=== PATIENT | female | born 1975 | race Hispanic/Latino ===

== ENCOUNTER 2017-07-25 14:45 | Outpatient (CLI) | payer OTHER ==
--- NOTE | 2017-07-25 15:53 | RAD ---
TWO VIEWS OF THE CHEST 07/25/17 COMPARISON: 12/15/16 HISTORY: Dyspnea. FINDINGS: Two views of the chest shows a normal sized cardiomediastinal silhouette. There is no evidence of con solidation, mass, or pleural effusion. The bones are unremarkable. IMPRESSION: No evidence of acute cardiopulmonary disease. POS: [facility]
== END 2017-07-25 14:46 | disposition home or self-care (01) ==
LOC: RAD 14:45
PROVIDERS: ATTEND Internal Medicine Pulmonary Disease
DX: R06.00 Dyspnea, unspecified (principal)
CPT/HCPCS: 71020

== ENCOUNTER 2017-08-01 11:38 | Outpatient (CLI) | payer OTHER ==
--- NOTE | 2017-08-01 16:07 | CT ---
CT CHEST WITHOUT CONTRAST HIGH RESOLUTION: History Scleroderma. COMPARISON: Chest 2 views 07/25/17. FINDINGS: There are fibrotic changes in the lung bases worse in the upper lobes with traction bronchiectasis. No subpleural sparing. Early honeycombing in the right lower lobe. No pneumothorax. No effusion. Evaluation for pulmonary nodule is limited on high-resolution images of the images acquired every 1 cm. Small pericardial effusion. No adenopathy. Upper abdomen is unremarkable. No displaced rib fracture. 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 Followup in 1 year recommended to evaluate for progression. POS: [facility]
== END 2017-08-01 11:39 | disposition home or self-care (01) ==
LOC: CT 11:38
PROVIDERS: ATTEND Internal Medicine Pulmonary Disease
DX: M34.9 Systemic sclerosis, unspecified (principal)
CPT/HCPCS: 71250; 93306

== ENCOUNTER 2017-08-15 12:39 | Outpatient (CLI) | payer OTHER ==
--- NOTE | 2017-08-22 15:50 | PFT ---
PATIENT HISTORY: HEIGHT: 67 IN WEIGHT:196 LBS SMOKER: NEVER HOW LONG: PACKS PER DAY PRODUCTIVE COUGH: LUNG DISEASE: PHYSICIAN INTERPRETATION FINAL REPORT: MODERATE REDUCTION OF EXPIRATORY FLOWS OF VITAL CAPACITY WITH OUT ANY IMPROVEMENT AFTER BRONCHODILATOR THERAPY. TOTAL LUNG CAPACITY NORMAL, RV NORMAL, RV/TLC HYPEREXPANDED. GAS TRANSFER IS NORMAL. IMPRESSION: RESTRICTIVE PERMEABLE IMPAIRMENT, NORMAL DIFFUSION CAPACITY Care Coordination Manager: [employer]: [employer]
== END 2017-08-15 12:40 | disposition home or self-care (01) ==
LOC: CP 12:39
PROVIDERS: ATTEND Internal Medicine Pulmonary Disease
DX: M34.9 Systemic sclerosis, unspecified (principal)
CPT/HCPCS: 94060; 94727; 94729

== ENCOUNTER 2018-07-31 09:42 | Outpatient (CLI) | payer OTHER ==
--- NOTE | 2018-07-31 13:11 | MRI ---
BRAIN MRI WITH AND WITHOUT CONTRAST: Date: 07-31-18 Comparison: None. History: Scleroderma, increasing slurred speech and word finding difficulties. Evaluate for neoplasti c disease. Technique: Multiplanar, multisequence MR imaging of the brain obtained with and without contrast. FINDINGS: The gradient echo imaging demonstrates no evidence for intracranial hemorrhage and the diffusion weig hted imaging demonstrates no evidence for acute infarction. 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 There is mild mucosal thickening of the maxillary sinus on the left. Ther e is no midline shift, mass effect, or ventricular enlargement. 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 The post contrast imaging demonstrates no abnormal enhancement within the brain parenchyma. There is no mass lesion or mass effect seen. IMPRESSION: No acute findings. Incidental findings as described above. POS: [facility]
== END 2018-07-31 09:43 | disposition home or self-care (01) ==
LOC: MRI 09:42
PROVIDERS: ATTEND Internal Medicine Rheumatology
DX: D49.6 Neoplasm of unspecified behavior of brain (principal)
CPT/HCPCS: 70553

== ENCOUNTER 2018-09-07 19:22 | Inpatient (IN) | payer OTHER ==
[~2018-09-07 19:22] MED LIST: ISOVUE-370 76%-LOCM 1 ML ONE
[2018-09-07 19:43] LABS: #Basophils 0.1 thou/uL (0.0-0.2); #Eosinphils 0.3 thou/uL (0.0-0.7); #Lymphocytes 2.3 thou/uL (1.20-3.40); #Monocytes 1.3 thou/uL (0.11-0.59); #Neutrophils 12.9 thou/uL (1.40-6.50); %Basophils 0.6 % (0.0-1.0); %Eosinophils 1.8 % (0.0-10.0); %Lymphocytes 13.8 % (21.0-51.0); %Monocytes 7.4 % (0.0-10.0); %Neutrophils 76.4 % (42.0-75.0); Hemoglobin 12.9 g/dL (12.0-16.0); Mean Corpuscular HGB CONC 32.9 g/dL (32.0-36.0); Mean Corpuscular Hemoglobin 25.9 pg (27.0-31.0); Mean Corpuscular Volume 78.8 fL (78.0-98.0); Mean Platelet Volume 8.9 fL (7.4-10.4); Platelet Count 440 thou/uL (130-400); RBC Distribution Width 13.5 % (11.5-14.5); Red Blood Cell (RBC) Count 4.98 mill/uL (4.20-5.40); White Blood Cell (WBC) Count 16.9 thou/uL (4.8-10.8)
[2018-09-07 19:51] LABS: Bilirubin Negative (Negative); Blood, Urine Negative (Negative); Clarity CLEAR (Clear); Glucose, Urine (Dipstick) Negative (Negative); Leukocyte Small (Negative); Nitrite Negative (Negative); Protein, Urine (Dipstick) Trace mg/dL (Neg-Trace); Specific Gravity, Urine 1.021 (1.002-1.036); pH, Urine 7.5 (5.0-9.0)
[2018-09-07 19:53] LABS: Bacteria/HPF None Seen HPF (None Seen); Hyaline Casts/LPF 0-3 HYALINE CAST LPF (0-3 Hyaline); Squamous Epithelial 0-3 HPF (0-3)
[2018-09-07 20:05] LABS: ALT (SGPT) 10 U/L (8-55); AST (SGOT) 14 U/L (5-34); Albumin 3.7 g/dL (3.5-5.0); Alkaline Phosphatase 82 U/L (40-150); Anion Gap 9 mmol/L (10-20); BUN (Urea Nitrogen) 9 mg/dL (7.0-18.7); Bilirubin, Total 0.3 mg/dL (0.2-1.2); Calc. Creatinine Clearance 0 mL/min (70-130); Calcium 9.2 mg/dL (7.8-10.44); Carbon Dioxide 28 mmol/L (22-29); Chloride 105 mmol/L (98-107); Estimated GFR-MDRD 83; Globulin 3.7 g/dL (2.4-3.5); Glucose 105 mg/dL (70-105); Potassium 3.3 mmol/L (3.5-5.1); Protein, Total 7.4 g/dL (6.0-8.3); Sodium 139 mmol/L (136-145)
[2018-09-07 20:18] LABS: Lipase 2727 U/L (8-78)
[2018-09-07] MEDS ORDERED: Morphine 4 MG/ML VIAL ONE ×2 (20:40→22:28)
[2018-09-07] MEDS ORDERED: Ondansetron PF 4 MG/2 ML Vial ONE (20:40)
[2018-09-07 21:05] LABS: BHCG - Serum Negative (NEGATIVE); Pregs Control Background? CLEAR/WHITE (CLR/WHITE); Pregs Control Bar Appear? YES (CONTROL BAR)
[2018-09-07 21:10] LABS: Pregnancy Test - Urine (BHCG) Negative (Negative); Pregu Control Background? CLEAR/WHITE (CLR/WHITE); Pregu Control Bar Appear? YES (CONTROL BAR); Specific Gravity 1.021 (1.002-1.036)
--- NOTE | 2018-09-07 22:15 | CT ---
CT ABDOMEN AND PELVIS WITH IV CONTRAST: 09/07/18 HISTORY: Abdomen pain. FINDINGS: Interstitial lung disease is apparent at the lung bases, as detailed on prior CT chest exams. Small c ysts of the right kidney. Subtle stranding is present within the upper abdominal fat surrounding the body and tail of the pancreas. The pancreatic parenchyma is unremarkable. At the right adnexa, a lobular cyst measures up to 6.5 cm. Left ovarian cyst measures up to 3.5 cm. U rinary bladder is unremarkable. IMPRESSION: 1. Mild pancreatitis without evidence of complication. 2. Bilateral ovarian cysts. 3. Interstitial lung disease. POS: [facility]
[2018-09-07] MEDS ORDERED: Morphine 4 MG/ML VIAL SLOW IVP PRN (23:41)
[2018-09-07] MEDS ORDERED: Pantoprazole 40 MG VIAL IVP SCH (23:45)
[2018-09-07] MEDS ORDERED: predniSONE 20 MG TAB PO SCH (23:45)
[2018-09-07] MEDS ORDERED: tiZANidine HCl 4 MG TAB PO SCH (23:45)
[2018-09-07] MEDS ORDERED: Ondansetron ODT 4 MG TAB PO PRN (23:48)
[2018-09-07] MEDS ORDERED: Acetaminophen 325 MG TAB PO PRN (23:48)
[2018-09-07] MEDS ORDERED: Calcium Carbonate 500 MG ChewTAB PO PRN (23:48)
[2018-09-07] MEDS ORDERED: Ondansetron PF 4 MG/2 ML Vial IVP PRN (23:48)
[2018-09-08] MEDS ORDERED: Pantoprazole 40 MG VIAL ONE (00:20)
[2018-09-08] MEDS ORDERED: predniSONE 20 MG TAB ONE (00:20)
[2018-09-08] MEDS: D5 1/2 NS w/20 mEq KCL 1,000 ML IV SCH ×4 (01:07→21:36)
[2018-09-08] MEDS ORDERED: Morphine 4 MG/ML VIAL ONE (02:30)
[2018-09-08 03:58] LABS: #Eosinphils 0.2 thou/uL (0.0-0.7); #Lymphocytes 1.3 thou/uL (1.20-3.40); #Monocytes 0.9 thou/uL (0.11-0.59); #Neutrophils 15.4 thou/uL (1.40-6.50); %Basophils 0.2 % (0.0-1.0); %Eosinophils 1.1 % (0.0-10.0); %Lymphocytes 7.2 % (21.0-51.0); %Monocytes 4.9 % (0.0-10.0); %Neutrophils 86.6 % (42.0-75.0); Hemoglobin 11.6 g/dL (12.0-16.0); Mean Corpuscular HGB CONC 32.7 g/dL (32.0-36.0); Mean Corpuscular Hemoglobin 25.9 pg (27.0-31.0); Mean Corpuscular Volume 79.2 fL (78.0-98.0); Mean Platelet Volume 8.8 fL (7.4-10.4); Platelet Count 369 thou/uL (130-400); RBC Distribution Width 13.4 % (11.5-14.5); Red Blood Cell (RBC) Count 4.47 mill/uL (4.20-5.40); White Blood Cell (WBC) Count 17.8 thou/uL (4.8-10.8)
[2018-09-08 04:20] LABS: ALT (SGPT) 7 U/L (8-55); AST (SGOT) 11 U/L (5-34); Albumin 3.4 g/dL (3.5-5.0); Alkaline Phosphatase 71 U/L (40-150); Anion Gap 13 mmol/L (10-20); BUN (Urea Nitrogen) 8 mg/dL (7.0-18.7); Bilirubin, Total 0.3 mg/dL (0.2-1.2); Calc. Creatinine Clearance 0 mL/min (70-130); Calcium 8.1 mg/dL (7.8-10.44); Carbon Dioxide 22 mmol/L (22-29); Chloride 104 mmol/L (98-107); Estimated GFR-MDRD Greater than 90; Globulin 3.1 g/dL (2.4-3.5); Glucose 115 mg/dL (70-105); Lipase 745 U/L (8-78); Magnesium 1.6 mg/dL (1.6-2.6); Potassium 3.4 mmol/L (3.5-5.1); Protein, Total 6.5 g/dL (6.0-8.3); Sodium 136 mmol/L (136-145)
--- NOTE | 2018-09-08 06:13 | HP ---
PRIMARY CARE PHYSICIAN: Dr. Moore. The patient was seen and examined on 07 September 2018. CHIEF COMPLAINT: Abdominal discomfort. HISTORY OF PRESENT ILLNESS: The patient is a 43-year-old female with rheumatoid arthritis and GERD, presented to the emergency room with abdominal discomfort that started earlier today. The abdominal discomfort was mainly localized in the upper abdomen. It was moderate in intensity, more or less constant. She denies any fever, however, had chills. She also had two episodes of diarrhea earlier today. No nausea or vomiting reported. She denies any alcohol use. She denies any belching, burping, or heartburn. Triglycerides last year was 200. She denies any other [id number] medications. She is on chronic prednisone for rheumatoid arthritis per Dr. Terry. In the emergency room, her workup was consistent with acute pancreatitis. Her initial vital signs showed temperature 98.3, respiration 20, pulse rate of 101 with a blood pressure 131/85 with O2 saturation 99% on room air. She received IV fluids with Zofran and morphine in the emergency room. PAST MEDICAL HISTORY: 1. Rheumatoid arthritis. 2. Mild intermittent asthma. 3. GERD. 4. Raynaud phenomenon. 5. Vitamin D deficiency. 6. Fibromyalgia. 7. Rosacea. 8. Interstitial lung disease. PAST SURGICAL HISTORY: 1. section. 2. Hernia repair. 3. Tonsillectomy. 4. D and C. ALLERGIES: NO KNOWN DRUG ALLERGIES. CURRENT HOME MEDICATIONS: 1. Prednisone 5 mg daily. 2. Colchicine 0.6 mg daily. 3. Cymbalta 60 mg daily. 4. Plaquenil 200 mg daily. 5. Procardia XL 60 mg daily. 6. Nexium daily. 7. Zanaflex 4 mg at bedtime. 8. Aspirin 81 mg daily. SOCIAL HISTORY: The patient currently lives at home with her family. Denies any alcohol, tobacco, or drug use. FAMILY HISTORY: Mother with rheumatoid arthritis, lupus, Raynaud, and stomach cancer. One sister of ALS. Another sister has rheumatoid arthritis. REVIEW OF SYSTEMS: All other review of systems were reviewed and were found negative. PHYSICAL EXAMINATION: VITAL SIGNS: As discussed above. GENERAL: A 43-year-old female, in mild distress due to abdominal discomfort. HEENT: Head is atraumatic, normocephalic. Sclerae anicteric. Moist mucous membranes. No oral lesions. NECK: Supple. No JVD appreciated. No carotid bruit. LUNGS: Clear to auscultation bilaterally. No wheezing, rales, or rhonchi. HEART: S1 and S2 present. Regular rate and rhythm. No murmurs, rubs, or gallops appreciated. ABDOMEN: Soft. There is epigastric tenderness without any significant rebound or guarding. No costovertebral angle tenderness. Bowel sounds are present. EXTREMITIES: No edema or calf tenderness. NEUROLOGIC: Grossly nonfocal. Moves all 4 extremities. PSYCHIATRY: Alert, awake, and oriented x3. SKIN: Warm and dry. LYMPH NODES: No palpable lymph nodes in the neck. PERIPHERAL VASCULAR: Radial pulses palpable bilaterally. MUSCULOSKELETAL: No joint swelling or tenderness. LABORATORY FINDINGS: WBC 16.9 with hemoglobin 12.9, hematocrit 39.2, platelet count 440. Chemistry showed sodium 139, potassium 3.3, chloride 105, bicarb 28, BUN 9 , creatinine 0.76. Lipase is 2700, testing was negative. Urinalysis was negative for wbc and bacteria. CT scan of the abdomen showed pancreatitis. It also showed bilateral ovarian cyst with interstitial lung disease. IMPRESSION: 1. Acute pancreatitis of unclear etiology. 2. Rheumatoid arthritis on chronic steroids and Plaquenil. 3. Raynaud phenomenon on Procardia XL. 4. Gastroesophageal reflux disease. 5. Fibromyalgia. 6. Mild intermittent asthma. 7. Interstitial lung disease. 8. Bilateral ovarian cyst. 9. Hypokalemia. 10. Dehydration. 11. Chronic leukocytosis. PLAN: The patient will be monitored on the medical floor. We will replace potassium. IV narcotics for pain control. IV fluids. IV Protonix. Resume prednisone, Cymbalta, Plaquenil, Procardia XL, and colchicine. Consult Gastroenterology Service. Right upper quadrant ultrasound to rule out cholelithiasis. Recheck labs in a.m. N.p.o. except for ice chips. The patient will require 2 to 3 days for stabilization. Job ID: [id number] [facility]
[2018-09-08] MEDS ORDERED: D5 1/2 NS w/20 mEq KCL 1,000 ML ONE (08:04)
--- NOTE | 2018-09-08 08:17 | ULT ---
ULTRASOUND ABDOMEN LIMITED: (RIGHT UPPER QUADRANT) DATE: 09/08/2018. TIME: 7:11 a.m. HISTORY: A 43-year-old female with acute pancreatitis. FINDINGS: The gallbladder has normal wall thickness and has no evidence of gallstones or sludge. The hepatic e chogenicity is normal. The right kidney has normal echogenicity and has no hydronephrosis. The panc reas is visualized, although ultrasound is relatively insensitive for pancreatic pathology compared t o CT and MRI. There is no biliary dilation. The common duct caliber is 4 mm. IMPRESSION: Normal. ralph [] POS: [facility]
[2018-09-08] MEDS ORDERED: Aspirin Chewable 81 MG TAB ONE (08:51)
[2018-09-08] MEDS ORDERED: NIFEdipine XL 30 MG TAB ONE (08:53)
[2018-09-08] MEDS ORDERED: Pantoprazole 40 MG VIAL IVP SCH (09:00)
[2018-09-08] MEDS: Aspirin 81 mg Enteric Coated Tablet PO SCH (11:33)
[2018-09-08] MEDS: Hydroxychloroquine Sulfate 200 MG TAB PO SCH ×2 (11:34→21:36)
[2018-09-08] MEDS: NIFEdipine XL 30 MG TAB PO SCH ×2 (11:34→21:36)
[2018-09-08] MEDS: DULoxetine 60 MG CAP PO SCH (11:35)
[2018-09-08] MEDS: Colchicine 0.6 MG TAB PO SCH (11:36)
[2018-09-08] MEDS: predniSONE 5 MG TAB PO SCH (11:36)
[2018-09-08] MEDS ORDERED: HYDROcodone/Acetaminophen 5/325 mg Tablet ONE (12:39)
[2018-09-08] MEDS: HYDROcodone/Acetaminophen 5/325 mg Tablet PO PRN ×2 (12:40→18:01)
--- NOTE | 2018-09-08 13:37 | CON ---
DATE OF CONSULTATION: 09/08/2018 GI INPATIENT CONSULTATION NOTE REQUESTING PHYSICIAN: Phillip Verdugo MD. REASON FOR CONSULTATION: Acute pancreatitis. HISTORY OF PRESENT ILLNESS: Abril Tavares is a very pleasant 43-year-old woman who was admitted to the hospital last night with her first episode of acute pancreatitis. She has no prior history of pancreatitis, no family history of pancreatitis. She does have some autoimmune issues with rheumatoid arthritis, Raynaud phenomenon, rosacea, and interstitial lung disease. She has no chronic gastrointestinal symptoms. Yesterday, fairly acutely, she had the onset of epigastric pain and also initially some diarrhea. The diarrhea quickly resolved, but the pain escalated to 10/10 and prompted her presentation. She was having some chills, but no documented fever. No nausea or vomiting with this. She was found to have lipase elevation and a CT scan demonstrated fat stranding around the body and tail of the pancreas. Gallbladder and bile duct imaging has been normal both by CT and ultrasound and LFTs have been normal. She has been hemodynamically stable, receiving IV fluids and pain control with modest efficacy. She had significant worsening of pain just with sips of water with her medications earlier today. REVIEW OF SYSTEMS: Full review of systems including constitutional, head, eyes, ears, nose, throat, GI, , cardiovascular, respiratory, musculoskeletal, neurologic systems is negative except as noted in the HPI. PAST MEDICAL HISTORY: Rheumatoid arthritis, mild intermittent asthma, interstitial lung disease, GERD, Raynaud phenomenon, vitamin D deficiency, fibromyalgia, rosacea, , hernia repair, tonsillectomy, D and C. ALLERGIES: NO KNOWN DRUG ALLERGIES. HOME MEDICATIONS: 1. Prednisone 5 mg daily. 2. Colchicine 0.6 mg daily. 3. Cymbalta 60 mg daily. 4. Plaquenil 200 mg daily. 5. Procardia XL 60 mg daily. 6. Nexium daily. 7. Zanaflex 4 mg at bedtime. 8. Aspirin 81 mg daily. Note that none of these medications are particularly new. The colchicine was started about three weeks ago. SOCIAL HISTORY: No alcohol, tobacco, or drug use. FAMILY HISTORY: Negative for pancreatitis. One sister of ALS. PHYSICAL EXAMINATION: VITAL SIGNS: Temperature 97.6, pulse 67, blood pressure 133/74, 96% oxygen saturation on room air. GENERAL: A 43-year-old woman sitting up in bed, in mild distress from abdominal discomfort. MENTAL: Alert and fully oriented. Pleasant, conversational. Gives a detailed coherent history. SKIN: No jaundice. No rashes were palpable. EYES: No scleral icterus. Extraocular movements intact. ENT: Mucous membranes moist. No oral lesions. LYMPH: No submandibular or supraclavicular lymphadenopathy. THYROID: Nontender to palpation. HEART: Regular rate and rhythm. LUNGS: Clear to auscultation bilaterally. ABDOMEN: Bowel sounds are present though hypoactive. The abdomen is soft, very tender to palpation in the upper abdomen but no guarding or rebound tenderness. EXTREMITIES: No peripheral edema. VESSELS: Radial pulses 2+ bilaterally. NEUROLOGIC: Cranial nerves 2 through 12 intact bilaterally. No focal deficits. LABORATORY STUDIES: WBC 17.8, evidently her baseline, WBC is modestly elevated. Hemoglobin 11.6, hematocrit 35.4, MCV 79.2, platelets 369. Sodium 136, potassium 3.4, BUN 8, creatinine 0.69, glucose 115. LFTs all normal with total bilirubin 0.3, alkaline phosphatase 71, AST 11, ALT 7, albumin 3.4, amylase elevated to 261, lipase was initially 2727, now down to 745. Serum test is negative. Urinalysis shows 4-6 wbc's. IMAGING STUDIES: Abdominal ultrasound was normal showing normal-appearing gallbladder and common bile duct, measuring only 4 mm. There is no evidence of gallstones or sludge. CT abdomen and pelvis demonstrates some subtle stranding around the body and tail of the pancreas and bilateral ovarian cysts, otherwise unremarkable. ASSESSMENT AND PLAN: 1. Acute pancreatitis, unclear etiology, first episode. 2. Upper abdominal pain, secondary to pancreatitis. This is the patient's first episode of pancreatitis. The etiology is unclear. Biliary etiology seems unlikely with normal ultrasound and normal LFTs. She does not drink alcohol. None of her medications are particularly new. For now, we are going to have to call this idiopathic. Regarding this acute episode itself, all of her laboratory clinical parameters seem favorable, she is being adequately resuscitated. Continue with supportive care with IV fluids, n.p.o. status for now, and analgesia. Hopefully, we would expect symptom resolution over the course of the next 2 to 3 days. No further recommendations from a GI perspective at this time. GI can follow along. Thank you for the consultation. Please call back with any questions or concerns. Mack ID: [id number]
[2018-09-08 15:01] VITALS: BMI 32.3
[2018-09-08] MEDS: tiZANidine HCl 4 MG TAB PO SCH (21:36)
--- NOTE | 2018-09-08 22:09 | PDOC.PN ---
- Subjective Encounter Start Date: 09/08/18 Encounter Start Time: 09:00 Patient seen and examined for Acute Pancreatitis. Abd pain improving. No new complaints. No overnight events - Objective Resuscitation Status - Order Detail: 09/07/18 23:48 Resuscitation Status Routine Resuscitation Status: FULL: Full Resuscitation MAR Reviewed: Yes Vital Signs & Weight: Vital Signs (12 hours) Temp Pulse Resp BP BP Pulse Ox 09/08/18 21:36 97 122/76 09/08/18 16:00 98 F 82 16 122/75 96 09/08/18 13:20 96 09/08/18 13:16 97.9 F 85 16 134/82 96 09/08/18 11:34 67 133/74 Weight Weight 199 lb 15.348 oz Result Diagrams: 09/08/18 03:45 09/08/18 03:45 Additional Labs: Laboratory Tests 09/07/18 09/08/18 19:34 03:45 Lipase 2727 H 745 H Phys Exam - Physical Examination Constitutional: NAD Respiratory: no wheezing, no rhonchi Cardiovascular: RRR, no rub Gastrointestinal: soft, positive bowel sounds Epig tend +, no rebound/guarding Dx/Plan - Plan DVT proph w/SCDs IMPRESSION: 1. Acute pancreatitis of unclear etiology. 2. Rheumatoid arthritis on chronic steroids and Plaquenil. 3. Raynaud phenomenon on Procardia XL. 4. Gastroesophageal reflux disease. 5. Fibromyalgia. 6. Mild intermittent asthma. 7. Interstitial lung disease. 8. Bilateral ovarian cyst. 9. Hypokalemia. 10. Dehydration. 11. Chronic leukocytosis. PLAN: Cont NPO with IVF Await GI input Cont current meds as below Pain control Cont PPI AM labs Review of Systems - Review of Systems Respiratory: negative: Cough, Dry, Shortness of Breath, Hemoptysis, SOB with Excertion, Pleuritic Pain, Sputum, Wheezing Cardiovascular: negative: chest pain, palpitations, orthopnea, paroxysmal nocturnal dyspnea, edema, light headedness, other - Medications/Allergies Allergies/Adverse Reactions: Allergies Allergy/AdvReac Type Severity Reaction Status Date / Time No Known Allergies Allergy Verified 09/08/18 14:25 Medications: Current Medications Acetaminophen (Tylenol) 650 mg PO Q4H PRN PRN Reason: Headache/Fever/Mild Pain (1-3) Hydrocodone Bitart/Acetaminophen ([place] 5/325) 1 tab PO Q4H PRN PRN Reason: Moderate Pain (4-6) Last Admin: 09/08/18 18:01 Dose: 1 tab Aspirin (Ecotrin) 81 mg PO DAILY [facility] Last Admin: 09/08/18 11:33 Dose: 81 mg Calcium Carbonate (Tums) 1,000 mg PO Q4H PRN PRN Reason: Heartburn or Indigestion Colchicine (Colcrys) 0.6 mg PO DAILY [facility] Last Admin: 09/08/18 11:36 Dose: 0.6 mg Duloxetine HCl (Cymbalta) 60 mg PO DAILY [facility] Last Admin: 09/08/18 11:35 Dose: 60 mg Hydroxychloroquine Sulfate (Plaquenil) 200 mg PO BID [facility] Last Admin: 09/08/18 21:36 Dose: 200 mg Potassium Chloride/Dextrose/Sod Cl (D5 1/2 Ns W/20 Meq Kcl) 1,000 mls @ 150 mls /hr IV .Q6H40M [facility] Last Admin: 09/08/18 21:36 Dose: 1,000 mls Morphine Sulfate (Morphine) 2 mg SLOW IVP Q4H PRN PRN Reason: Pain Stop: 09/10/18 23:42 Last Admin: 09/08/18 14:12 Dose: 2 mg Nifedipine (Procardia Xl) 30 mg PO BID [facility] Last Admin: 09/08/18 21:36 Dose: 30 mg Ondansetron HCl (Zofran Odt) 4 mg PO Q6H PRN PRN Reason: Nausea/Vomiting Ondansetron HCl (Zofran) 4 mg IVP Q6H PRN PRN Reason: Nausea/Vomiting Last Admin: 09/08/18 14:52 Dose: 4 mg Pantoprazole Sodium (Protonix) 40 mg PO DAILY [facility] Last Admin: 09/08/18 11:34 Dose: 40 mg Prednisone (Prednisone) 5 mg PO QAM [facility] Last Admin: 09/08/18 11:36 Dose: 5 mg Sodium Chloride (Flush - Normal Saline) 10 ml IVF PRN PRN PRN Reason: Saline Flush Tizanidine HCl (Zanaflex) 4 mg PO HS [facility] Last Admin: 09/08/18 21:36 Dose: 4 mg
[2018-09-09] MEDS: D5 1/2 NS w/20 mEq KCL 1,000 ML IV SCH ×3 (04:44→16:52)
[2018-09-09] MEDS: Hydroxychloroquine Sulfate 200 MG TAB PO SCH ×2 (08:31→21:32)
[2018-09-09] MEDS: DULoxetine 60 MG CAP PO SCH (08:31)
[2018-09-09] MEDS: NIFEdipine XL 30 MG TAB PO SCH ×2 (08:31→21:32)
[2018-09-09] MEDS: predniSONE 5 MG TAB PO SCH (08:31)
[2018-09-09] MEDS: Colchicine 0.6 MG TAB PO SCH (08:31)
[2018-09-09] MEDS: Aspirin 81 mg Enteric Coated Tablet PO SCH (08:32)
--- NOTE | 2018-09-09 09:38 | PRG ---
DATE OF SERVICE: 09/09/2018 GI INPATIENT DAILY PROGRESS NOTE SUBJECTIVE: Ms. Tavares is feeling a lot better. She did not require any pain medication last night or this morning. She has no abdominal pain at this moment. She has no more nausea or vomiting. She has been taking sips of water and doing fine with that. She has remained hemodynamically stable. Lab results are not back yet from this morning. PHYSICAL EXAMINATION: VITAL SIGNS: Temperature 97.5, pulse 101, blood pressure 106/65, 96% oxygen saturation on room air. GENERAL: No acute distress. HEART: Regular rate and rhythm. LUNGS: Clear to auscultation bilaterally. ABDOMEN: Bowel sounds present. Soft. Minimal tenderness to palpation. No guarding or rebound tenderness. EXTREMITIES: No peripheral edema. LABORATORY STUDIES: Labs are not yet back from this morning. ASSESSMENT AND PLAN: 1. Acute pancreatitis, clinically improving. 2. Upper abdominal pain, resolved at this time. Clinically, the patient's acute pancreatitis has significantly improved. We can advance her to a clear liquid diet this morning. I advised that if this goes well over breakfast and lunch, then her diet could be further advanced as tolerated this afternoon. Hopefully, she will be able to advance her diet completely by tomorrow. If so, potential discharge tomorrow. Please call anytime with questions or concerns. Job ID: [id number]
[2018-09-09 11:57] LABS: #Basophils 0.1 thou/uL (0.0-0.2); #Eosinphils 0.2 thou/uL (0.0-0.7); #Lymphocytes 1.5 thou/uL (1.20-3.40); #Monocytes 0.9 thou/uL (0.11-0.59); #Neutrophils 12.2 thou/uL (1.40-6.50); %Basophils 0.3 % (0.0-1.0); %Eosinophils 1.3 % (0.0-10.0); %Lymphocytes 10.1 % (21.0-51.0); %Monocytes 5.9 % (0.0-10.0); %Neutrophils 82.3 % (42.0-75.0); Hemoglobin 12.7 g/dL (12.0-16.0); Mean Corpuscular HGB CONC 32.6 g/dL (32.0-36.0); Mean Corpuscular Volume 79.6 fL (78.0-98.0); Mean Platelet Volume 9.1 fL (7.4-10.4); Platelet Count 399 thou/uL (130-400); RBC Distribution Width 13.6 % (11.5-14.5); Red Blood Cell (RBC) Count 4.89 mill/uL (4.20-5.40); White Blood Cell (WBC) Count 14.8 thou/uL (4.8-10.8)
[2018-09-09 12:00] LABS: ALT (SGPT) Less than 7 U/L (8-55); AST (SGOT) 13 U/L (5-34); Albumin 3.6 g/dL (3.5-5.0); Alkaline Phosphatase 73 U/L (40-150); Anion Gap 11 mmol/L (10-20); BUN (Urea Nitrogen) Less than 4 mg/dL (7.0-18.7); Bilirubin, Total 0.4 mg/dL (0.2-1.2); Calc. Creatinine Clearance 152 mL/min (70-130); Calcium 9.3 mg/dL (7.8-10.44); Carbon Dioxide 23 mmol/L (22-29); Chloride 107 mmol/L (98-107); Estimated GFR-MDRD Greater than 90; Globulin 3.6 g/dL (2.4-3.5); Glucose 92 mg/dL (70-105); Lipase 160 U/L (8-78); Magnesium 1.8 mg/dL (1.6-2.6); Phosphorus 2.8 mg/dL (2.3-4.7); Potassium 3.5 mmol/L (3.5-5.1); Protein, Total 7.2 g/dL (6.0-8.3); Sodium 137 mmol/L (136-145)
[2018-09-09] MEDS: tiZANidine HCl 4 MG TAB PO SCH (21:33)
--- NOTE | 2018-09-09 21:46 | PDOC.PN ---
- Subjective Encounter Start Date: 09/09/18 Encounter Start Time: 11:00 Patient seen and examined for Acute Pancreatitis. No new complaints. No overnight events - Objective Resuscitation Status - Order Detail: 09/07/18 23:48 Resuscitation Status Routine Resuscitation Status: FULL: Full Resuscitation MAR Reviewed: Yes Vital Signs & Weight: Vital Signs (12 hours) Temp Pulse Resp BP BP Pulse Ox 09/09/18 21:32 99 130/80 09/09/18 17:08 97.8 F 96 18 123/73 97 09/09/18 12:00 97.8 F 101 H 18 128/77 96 Weight Weight 199 lb 15.348 oz Result Diagrams: 09/09/18 11:11 09/09/18 11:11 Phys Exam - Physical Examination Constitutional: NAD Respiratory: no wheezing, no rhonchi Cardiovascular: RRR, no rub Gastrointestinal: soft, non-tender, positive bowel sounds Musculoskeletal: no edema Neurological: moves all 4 limbs Dx/Plan - Plan DVT proph w/SCDs IMPRESSION: 1. Acute pancreatitis of unclear etiology. 2. Rheumatoid arthritis on chronic steroids and Plaquenil. 3. Raynaud phenomenon on Procardia XL. 4. Gastroesophageal reflux disease. 5. Fibromyalgia. 6. Mild intermittent asthma. 7. Interstitial lung disease. 8. Bilateral ovarian cyst. 9. Hypokalemia. 10. Dehydration. 11. Chronic leukocytosis. PLAN: Clear liqd diet Cont current meds as below Pain control Cont PPI Advance to full liqd diet in PM Review of Systems - Review of Systems Respiratory: negative: Cough, Dry, Shortness of Breath, Hemoptysis, SOB with Excertion, Pleuritic Pain, Sputum, Wheezing Cardiovascular: negative: chest pain, palpitations, orthopnea, paroxysmal nocturnal dyspnea, edema, light headedness, other Gastrointestinal: negative: Nausea, Vomiting, Abdominal Pain, Diarrhea, Constipation, Melena, Hematochezia, Other - Medications/Allergies Allergies/Adverse Reactions: Allergies Allergy/AdvReac Type Severity Reaction Status Date / Time No Known Allergies Allergy Verified 09/08/18 14:25 Medications: Current Medications Acetaminophen (Tylenol) 650 mg PO Q4H PRN PRN Reason: Headache/Fever/Mild Pain (1-3) Hydrocodone Bitart/Acetaminophen ([place] 5/325) 1 tab PO Q4H PRN PRN Reason: Moderate Pain (4-6) Last Admin: 09/08/18 18:01 Dose: 1 tab Aspirin (Ecotrin) 81 mg PO DAILY [facility] Last Admin: 09/09/18 08:32 Dose: 81 mg Calcium Carbonate (Tums) 1,000 mg PO Q4H PRN PRN Reason: Heartburn or Indigestion Colchicine (Colcrys) 0.6 mg PO DAILY [facility] Last Admin: 09/09/18 08:31 Dose: 0.6 mg Duloxetine HCl (Cymbalta) 60 mg PO DAILY [facility] Last Admin: 09/09/18 08:31 Dose: 60 mg Hydroxychloroquine Sulfate (Plaquenil) 200 mg PO BID [facility] Last Admin: 09/09/18 21:32 Dose: 200 mg Potassium Chloride/Dextrose/Sod Cl (D5 1/2 Ns W/20 Meq Kcl) 1,000 mls @ 150 mls /hr IV .Q6H40M [facility] Last Admin: 09/09/18 16:52 Dose: 1,000 mls Morphine Sulfate (Morphine) 2 mg SLOW IVP Q4H PRN PRN Reason: Pain Stop: 09/10/18 23:42 Last Admin: 09/08/18 14:12 Dose: 2 mg Nifedipine (Procardia Xl) 30 mg PO BID [facility] Last Admin: 09/09/18 21:32 Dose: 30 mg Ondansetron HCl (Zofran Odt) 4 mg PO Q6H PRN PRN Reason: Nausea/Vomiting Ondansetron HCl (Zofran) 4 mg IVP Q6H PRN PRN Reason: Nausea/Vomiting Last Admin: 09/08/18 14:52 Dose: 4 mg Pantoprazole Sodium (Protonix) 40 mg PO DAILY [facility] Last Admin: 09/09/18 08:31 Dose: 40 mg Prednisone (Prednisone) 5 mg PO QAM [facility] Last Admin: 09/09/18 08:31 Dose: 5 mg Sodium Chloride (Flush - Normal Saline) 10 ml IVF PRN PRN PRN Reason: Saline Flush Tizanidine HCl (Zanaflex) 4 mg PO HS [facility] Last Admin: 09/09/18 21:33 Dose: 4 mg
[2018-09-10] MEDS: D5 1/2 NS w/20 mEq KCL 1,000 ML IV SCH ×2 (01:21→09:08)
[2018-09-10 07:43] VITALS: TEMP 98.2
[2018-09-10] MEDS: predniSONE 5 MG TAB PO SCH (09:09)
[2018-09-10] MEDS: Colchicine 0.6 MG TAB PO SCH (09:10)
[2018-09-10] MEDS: Hydroxychloroquine Sulfate 200 MG TAB PO SCH (09:10)
[2018-09-10] MEDS: Aspirin 81 mg Enteric Coated Tablet PO SCH (09:10)
[2018-09-10] MEDS: DULoxetine 60 MG CAP PO SCH (09:10)
[2018-09-10] MEDS: NIFEdipine XL 30 MG TAB PO SCH (09:11)
[2018-09-10 09:12] VITALS: BP 125/78
[2018-09-10] MEDS ORDERED: D5 1/2 NS w/20 mEq KCL 1,000 ML IV SCH (09:32)
--- NOTE | 2018-09-10 11:15 | PRG ---
DATE OF SERVICE: 09/10/2018 SUBJECTIVE: Ms. Tavares is feeling really well. Her abdominal pain and nausea have resolved. She is tolerating a full liquid diet, ready to try something more solid. She has remained hemodynamically stable. OBJECTIVE: VITAL SIGNS: Temperature 98.2, pulse 81, blood pressure 125/78, 97% oxygen saturation on room air. GENERAL: No acute distress. HEART: Regular rate and rhythm. LUNGS: Clear to auscultation bilaterally. ABDOMEN: Soft. Bowel sounds are present. Nontender to palpation. EXTREMITIES: No peripheral edema. LABORATORY STUDIES: Labs from yesterday morning demonstrated lipase improvement to 160. LFTs all still normal. BUN less than 4, creatinine 0.69. WBC 14.8, hemoglobin 12.7. ASSESSMENT AND PLAN: 1. Acute pancreatitis, unknown etiology, clinically improved. 2. Upper abdominal pain, resolved at this time. From a clinical standpoint, her pancreatitis seems to have resolved. Would give her a regular diet for lunch today. If she does well with this, then I would recommend discharge from the hospital, at least from a GI perspective. We will plan to see her back in clinic in the next 2 to 3 weeks for further discussion as well as discussion of other chronic issues including her gastroesophageal reflux. Job ID: [id number]
--- NOTE | 2018-09-11 10:46 | DIS ---
DATE OF ADMISSION: 09/07/2018 DATE OF DISCHARGE: 09/10/2018 DISCHARGE DISPOSITION: Home. FOLLOWUP: 1. Follow up with primary care physician, Dr. Moore in 1 week. 2. Follow up with Dr. Sesar King in 2 weeks. ALLERGIES: NO KNOWN DRUG ALLERGIES. THE PATIENT WAS SEEN ON THE DAY OF DISCHARGE. DENIES ANY NEW COMPLAINTS. NO CHEST PAIN, SHORTNESS OF BREATH, PALPITATIONS, NAUSEA, VOMITING, OR DIARRHEA REPORTED. BRIEF HOSPITAL COURSE: The patient is a 43-year-old female, who presented to the hospital with abdominal discomfort. Please refer to the history and physical for further details. The patient was admitted to the hospital with a diagnosis of acute pancreatitis of unclear etiology. The lipase on admission was 2727. She was kept n.p.o. CT scan of the brain was consistent with pancreatitis. It also showed bilateral ovarian cyst with interstitial lung disease. Right upper quadrant ultrasound was negative for acute findings. Her symptoms improved with conservative measures. Her lipase yesterday was 160. She tolerated clear liquid diet. This was advanced to a regular diet. She appears stable for discharge. FINAL DIAGNOSES: 1. Acute pancreatitis of unclear etiology. 2. Rheumatoid arthritis, on chronic steroids and Plaquenil. 3. Raynaud phenomena, on Procardia XL. 4. Gastroesophageal reflux disease. 5. Fibromyalgia. 6. Mild intermittent asthma. 7. Interstitial lung disease. 8. Bilateral ovarian cysts with interstitial lung disease on the CT. 9. Hypokalemia. 10. Dehydration. 11. Chronic leukocytosis. DISCHARGE MEDICATIONS: Same as admission medication. Job ID: [id number]
== END 2018-09-10 16:00 | disposition home or self-care (01) | DRG 439 ==
LOC: ERS 19:22 → ERHOLD 23:07 → T4-A 09-08 13:18
PROVIDERS: ADMIT Internal Medicine; ATTEND Internal Medicine
DX: K85.90 Acute pancreatitis without necrosis or infection, unspecified (principal); J84.9 Interstitial pulmonary disease, unspecified; M06.9 Rheumatoid arthritis, unspecified; K21.9 Gastro-esophageal reflux disease without esophagitis; Z79.52 Long term (current) use of systemic steroids; J45.20 Mild intermittent asthma, uncomplicated; I73.00 Raynaud's syndrome without gangrene; E55.9 Vitamin D deficiency, unspecified; M79.7 Fibromyalgia; L71.9 Rosacea, unspecified; Z79.899 Other long term (current) drug therapy; Z79.82 Long term (current) use of aspirin; N83.202 Unspecified ovarian cyst, left side; N83.201 Unspecified ovarian cyst, right side; E87.6 Hypokalemia; E86.0 Dehydration; D72.828 Other elevated white blood cell count
CPT/HCPCS: 36415; 74177; 76705; 80053; 81003; 81015; 81025; 82150; 83690; 83735; 84100; 84703; 85025; 96361; 96374; 96375; 96376; C9113; J2270; J2405; J7506; J7512; Q9966

== ENCOUNTER 2018-10-07 17:34 | Outpatient (CLI) | payer OTHER | END 2018-10-07 17:35 | disposition home or self-care (01) | LOC: BICMAMMO 17:34 | PROVIDERS: ATTEND Family Medicine | DX: Z12.31 Encounter for screening mammogram for malignant neoplasm of breast (principal); R92.1 Mammographic calcification found on diagnostic imaging of breast | CPT/HCPCS: 77063; 77067 ==

== ENCOUNTER 2018-10-30 08:05 | Outpatient (CLI) | payer OTHER ==
--- NOTE | 2018-10-30 09:06 | RAD ---
PA AND LATERAL CHEST: HISTORY: Systemic sclerosis. COMPARISON: 07/25/2017 FINDINGS: The heart size is normal. There is interval worsening of chronic interstitial changes since the last exam. Small effusions may be present, posteriorly. No lobar consolidation or pneumothoraces seen. POS: [facility]
== END 2018-10-30 08:06 | disposition home or self-care (01) ==
LOC: BICRAD 08:05
PROVIDERS: ATTEND Internal Medicine Rheumatology
DX: M34.9 Systemic sclerosis, unspecified (principal)
CPT/HCPCS: 71046

== ENCOUNTER 2018-11-06 12:58 | Outpatient (CLI) | payer OTHER ==
--- NOTE | 2018-11-06 15:58 | CT ---
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 Follow-up. COMPARISON: 08/01/2017. TECHNIQUE: 1. Millimeter slice thickness and 10 mm intervals between slices. Patient scanned supine and prone. COMPARISON: 08/01/2017. Disclaimer: Because of the 10 mm gaps, the sensitivity for the detection of any disease other than interstitial l dave disease, is low, including cancer. The sole purpose of a high-resolution chest CT is to evaluate interstitial lung disease. FINDINGS: Subpleural reticular pulmonary densities. Streaky fibrotic densities at the bases of bilateral lungs. Patchy region of mild bronchiectasis surrounded by mild confluent chronic infiltrate in right middle lobe. Small pericardial effusion. No significant interval change overall. IMPRESSION: 1. Chronic interstitial lung disease, consistent with pulmonary manifestation of scleroderma. 2. Small pericardial effusion. 3. No major interval change since 07/15/2017.
== END 2018-11-06 12:59 | disposition home or self-care (01) ==
LOC: BICCT 12:58
PROVIDERS: ATTEND Internal Medicine Rheumatology
DX: M34.9 Systemic sclerosis, unspecified (principal); I31.3 Pericardial effusion (noninflammatory); J84.9 Interstitial pulmonary disease, unspecified
CPT/HCPCS: 71250

== ENCOUNTER 2018-12-05 07:34 | Outpatient (CLI) | payer OTHER ==
--- NOTE | 2018-12-05 10:20 | MRI ---
MR of the right hand with and without contrast INDICATION: History of scleroderma; concern for osteomyelitis of the right hand TECHNIQUE: Multiplanar multisequence MR images were obtained of the right hand with and without contr ast utilizing 20 cc of MultiHance. No comparisons are available. FINDINGS: There is prominent thickening of the skin with increased T2 signal and enhancement consistent with th e patient's history of scleroderma. There is tapering of the distal tips of the fingers consistent with patient's history of scleroderma. No active joint effusion or periarticular erosions are evident . There is no overt marrow signal abnormality or region of abnormal enhancement to suggest osteomyelitis. The visualized flexor and extensor tendons appear within normal limits. The intrinsic hand musculature has a normal signal intensity and bulk. IMPRESSION: 1. Skin thickening and tapering of the distal aspects of the digits of the right ankylosis of the pat ient's history of scleroderma. 2. There are no overt MR findings to suggest presence of osteomyelitis of the right hand. 3. Visualized flexor and extensor tendons appear within normal limits.
--- NOTE | 2018-12-05 10:22 | MRI ---
MR of the left hand with and without contrast INDICATION: History of scleroderma; concern for osteomyelitis of the left hand TECHNIQUE: Multiplanar multisequence MR images were obtained of the left hand with and without contra st utilizing 20 cc of MultiHance. No comparisons are available. FINDINGS: There is prominent thickening of the skin with increased T2 signal and enhancement consistent with th e patient's history of scleroderma. There is tapering of the distal tips of the fingers consistent with patient's history of scleroderma. No active joint effusion or periarticular erosions are evident . There is no overt marrow signal abnormality or region of abnormal enhancement to suggest osteomyelitis. The visualized flexor and extensor tendons appear within normal limits. The intrinsic hand musculature has a normal signal intensity and bulk. IMPRESSION: 1. Skin thickening and tapering of the distal aspects of the digits of the right ankylosis of the pat ient's history of scleroderma. 2. There are no overt MR findings to suggest presence of osteomyelitis of the left hand. 3. Visualized flexor and extensor tendons appear within normal limits.
[2018-12-05] MEDS ORDERED: Gadobenate Dimeglumine 529 MG/1 ML (20ML VIAL) ONE (11:20)
== END 2018-12-05 07:35 | disposition home or self-care (01) ==
LOC: BICMRI 07:34
PROVIDERS: ATTEND Orthopaedic Surgery Hand Surgery
DX: M86.9 Osteomyelitis, unspecified (principal); M24.641 Ankylosis, right hand; R23.4 Changes in skin texture
CPT/HCPCS: A9577

== ENCOUNTER 2018-12-10 12:56 | Emergency (ER) | payer OTHER ==
[2018-12-10 13:53] LABS: #Basophils 0.1 thou/uL (0.0-0.2); #Eosinphils 0.1 thou/uL (0.0-0.7); #Lymphocytes 1.2 thou/uL (1.20-3.40); #Monocytes 0.9 thou/uL (0.11-0.59); #Neutrophils 13.8 thou/uL (1.40-6.50); %Basophils 0.4 % (0.0-1.0); %Eosinophils 0.6 % (0.0-10.0); %Lymphocytes 7.5 % (21.0-51.0); %Monocytes 5.8 % (0.0-10.0); %Neutrophils 85.7 % (42.0-75.0); Hemoglobin 12.2 g/dL (12.0-16.0); Mean Corpuscular Hemoglobin 23.7 pg (27.0-31.0); Mean Corpuscular Volume 76.6 fL (78.0-98.0); Mean Platelet Volume 9.1 fL (7.4-10.4); Platelet Count 393 thou/uL (130-400); RBC Distribution Width 13.6 % (11.5-14.5); Red Blood Cell (RBC) Count 5.15 mill/uL (4.20-5.40); White Blood Cell (WBC) Count 16.1 thou/uL (4.8-10.8)
[2018-12-10 14:14] LABS: BHCG - Serum Negative (NEGATIVE); Pregs Control Background? CLEAR/WHITE (CLR/WHITE); Pregs Control Bar Appear? YES (CONTROL BAR)
[2018-12-10 14:17] LABS: ALT (SGPT) 12 U/L (8-55); AST (SGOT) 13 U/L (5-34); Albumin 4.2 g/dL (3.5-5.0); Alkaline Phosphatase 103 U/L (40-150); Anion Gap 15 mmol/L (10-20); BUN (Urea Nitrogen) 11 mg/dL (7.0-18.7); Bilirubin, Total 0.3 mg/dL (0.2-1.2); Calc. Creatinine Clearance 0 mL/min (70-130); Calcium 9.8 mg/dL (7.8-10.44); Carbon Dioxide 25 mmol/L (22-29); Chloride 104 mmol/L (98-107); Estimated GFR-MDRD 90; Globulin 3.5 g/dL (2.4-3.5); Glucose 106 mg/dL (70-105); Potassium 3.6 mmol/L (3.5-5.1); Protein, Total 7.7 g/dL (6.0-8.3); Sodium 140 mmol/L (136-145)
[2018-12-10 17:19] LABS: Troponin I Less than 0.010 ng/mL (< 0.028)
--- NOTE | 2018-12-12 16:00 | RAD ---
XR Chest 1 View Portable HISTORY: Chest pain COMPARISON: 12/03/2013 FINDINGS: The heart size normal. There is minimal atelectatic changes at the lung bases. No lobar con solidation, pneumothoraces or large effusions are seen.
== END 2018-12-10 17:35 | disposition home or self-care (01) ==
LOC: ERS 12:56
DX: R07.89 Other chest pain (principal); K21.9 Gastro-esophageal reflux disease without esophagitis; J45.909 Unspecified asthma, uncomplicated; F32.9 Major depressive disorder, single episode, unspecified; Z79.82 Long term (current) use of aspirin; Z79.899 Other long term (current) drug therapy; Z79.51 Long term (current) use of inhaled steroids
CPT/HCPCS: 36415; 71045; 80053; 84443; 84484; 84703; 85025; 93005

== ENCOUNTER 2019-02-04 14:37 | Outpatient (CLI) | payer OTHER | END 2019-02-04 14:38 | disposition home or self-care (01) | LOC: CP 14:37 | PROVIDERS: ATTEND Internal Medicine Pulmonary Disease | DX: J45.909 Unspecified asthma, uncomplicated (principal); I10 Essential (primary) hypertension | CPT/HCPCS: 94060; 94727; 94729 ==

== ENCOUNTER 2019-02-22 14:37 | Inpatient (IN) | payer OTHER ==
[2019-02-22] MEDS ORDERED: methylPREDNISolone Sod Succ/PF 125 MG/2 ML VIAL ONE (15:16)
[2019-02-22 15:19] LABS: Hemoglobin 11.9 g/dL (12.0-16.0); Mean Corpuscular HGB CONC 31.6 g/dL (32.0-36.0); Mean Corpuscular Hemoglobin 23.6 pg (27.0-31.0); Mean Corpuscular Volume 74.6 fL (78.0-98.0); Mean Platelet Volume 9.5 fL (7.4-10.4); Platelet Count 417 thou/uL (130-400); RBC Distribution Width 13.8 % (11.5-14.5); Red Blood Cell (RBC) Count 5.04 mill/uL (4.20-5.40); White Blood Cell (WBC) Count 24.6 thou/uL (4.8-10.8)
[2019-02-22 15:34] LABS: Band 3 % (5-11); Hypochromia SLIGHT = 6-15 cells (100X) (0-5/hpf); Lymphocytes 18 % (21-51); MDiff Complete? YES; Microcytosis SLIGHT = 6-15 cells (100X) (0-5/hpf); Monocytes 3 % (0-10); Neutrophil 76 % (42-75); Platelet Morphology Comment Appears Increased
[2019-02-22 15:36] LABS: ALT (SGPT) 10 U/L (8-55); AST (SGOT) 12 U/L (5-34); Albumin 3.9 g/dL (3.5-5.0); Alkaline Phosphatase 98 U/L (40-150); Anion Gap 14 mmol/L (10-20); BUN (Urea Nitrogen) 12 mg/dL (7.0-18.7); Bilirubin, Total 0.4 mg/dL (0.2-1.2); Calc. Creatinine Clearance 0 mL/min (70-130); Carbon Dioxide 25 mmol/L (22-29); Chloride 103 mmol/L (98-107); Estimated GFR-MDRD 90; Globulin 3.4 g/dL (2.4-3.5); Glucose 86 mg/dL (70-105); Potassium 3.8 mmol/L (3.5-5.1); Protein, Total 7.3 g/dL (6.0-8.3); Sodium 138 mmol/L (136-145)
--- NOTE | 2019-02-22 15:37 | RAD ---
Chest AP view INDICATION: Dyspnea COMPARISON: December 10, 2018 FINDINGS: Lungs:Persistent bibasilar subsegmental volume loss Cardiac silhouette pulmonary vasculature:The cardiomediastinal silhouette appears within normal limit s. Pleural spaces:No pleural effusion or pneumothorax is demonstrated. Upper abdomen:No abnormality seen. Osseous structures: No acute osseous abnormality. Additional findings:None. IMPRESSION: Persistent bibasilar subsegmental volume loss. No additional abnormality.
[2019-02-22] MEDS ORDERED: cefTRIAXone\\ROCEPHIN 1 GM VIAL ONE (16:31)
[2019-02-22 18:58] VITALS: BMI 33.7
[2019-02-23] MEDS ORDERED: Acetaminophen 325 MG TAB PO PRN ×2 (01:29→01:46)
[2019-02-23] MEDS ORDERED: Calcium Carbonate 500 MG ChewTAB PO PRN (01:29)
[2019-02-23] MEDS ORDERED: Ondansetron ODT 4 MG TAB PO PRN (01:29)
[2019-02-23] MEDS ORDERED: Ondansetron PF 4 MG/2 ML Vial IVP PRN (01:29)
[2019-02-23] MEDS ORDERED: Sodium Chloride 0.9% 1,000 ML IV SCH (01:30)
[2019-02-23] MEDS ORDERED: cloNIDine 0.1 MG TAB PO PRN (01:32)
[2019-02-23] MEDS ORDERED: Diabetic Tussin 200 MG/10 ML UDCUP PO PRN (01:32)
[2019-02-23] MEDS ORDERED: traMADol HCl 50 MG TAB PO PRN (01:46)
[2019-02-23] MEDS: Azithromycin 500 MG in Sodium Chloride 0.9% 250 ML 250 ML IVPB SCH (01:51)
--- NOTE | 2019-02-23 02:10 | HP ---
The patient was seen and examined on 22 February 2019. CHIEF COMPLAINT: Shortness of breath. HISTORY OF PRESENT ILLNESS: The patient is a 44-year-old female with rheumatoid arthritis, interstitial lung disease, and asthma, presented to the emergency room with above complaints. Over the last 24 hours, the patient developed gradual worsening shortness of breath along with fever and chills. She also had cough that was productive of thick yellowish phlegm. She has sore throat over the last 2 to 3 days that has worsened. She also felt feverish and had chills. Her maximum temperature was between 99 to 100. Earlier today, her shortness of breath got worse along with chest tightness and wheezing, for which she presented to the emergency room. She was recently evaluated by Dr. Dawson and underwent pulmonary function tests. She has a history of tachyarrhythmia and was evaluated by Dr. Boland recently. She also had an event monitor placed that did not show significant arrhythmia per patient report. She has been feeling weak and tired lately. Due to worsening symptoms, she presented to the emergency room. PAST MEDICAL HISTORY: 1. Rheumatoid arthritis, on chronic steroids. 2. Raynaud phenomenon. 3. Gastroesophageal reflux disease. 4. Fibromyalgia. 5. Mild intermittent asthma. 6. Interstitial lung disease. 7. History of bilateral ovarian cyst. 8. Chronic leukocytosis. 9. Hospitalization for acute pancreatitis in August of this year. 10. Tachyarrhythmia, followed by Dr. Boland. 11. Rosacea. PAST SURGICAL HISTORY: 1. Caesarian section. 2. Tonsillectomy. 3. D and C. 4. Hernia repair. ALLERGIES: NO KNOWN DRUG ALLERGIES. CURRENT HOME MEDICATIONS: 1. Albuterol inhaler as needed. 2. Tramadol with acetaminophen as needed. 3. Tylenol No.4 as needed. 4. Vitamin D3 5000 units daily. 5. Colchicine 0.6 mg daily. 6. Dexilant 60 mg daily. 7. Cardizem ER 120 mg daily. 8. Cymbalta 60 mg daily. 9. Plaquenil 200 mg daily. 10. Prednisone 5 mg daily. 11. Tizanidine 8 mg at bedtime. 12. Symbicort 160/4.5 two puffs b.i.d. SOCIAL HISTORY: The patient currently lives at home with her family. She denies current use of alcohol, tobacco, or drug use. She works at [employer] office. FAMILY HISTORY: Mother with rheumatoid arthritis, lupus, and Raynaud. Mother also has stomach cancer. One sister of ALS. Another sister also has rheumatoid arthritis. REVIEW OF SYSTEMS: All other review of systems was reviewed and was found negative. PHYSICAL EXAMINATION: VITAL SIGNS: In the emergency room showed temperature 99.1, respirations of 30, pulse rate of 115, blood pressure of 126/97, O2 saturation of 100% on room air. GENERAL: A 44-year-old female, in mild distress due to persistent coughing as well as shortness of breath. HEENT: Head is atraumatic and normocephalic. Sclerae anicteric. Moist mucous membranes. Erythema over pharynx noted. NECK: Supple. No JVD. No carotid bruit. LUNGS: Showed rales bilaterally, right more than left, especially in the lower half of the lung. No significant wheezing. There were scattered rhonchi. Some accessory muscle use. HEART: S1 and S2, present. Tachycardic. No rubs or gallops. ABDOMEN: Soft. Bowel sounds present. No rebound or guarding. EXTREMITIES: No edema or calf tenderness. NEUROLOGY: Grossly nonfocal. Moves all 4 extremities. PSYCHIATRY: Alert, awake, and oriented x3. SKIN: Warm and dry. LYMPH NODES: No palpable lymph nodes in the neck. PERIPHERAL VASCULAR: Radial pulses are palpable bilaterally. MUSCULOSKELETAL: No joint swelling or tenderness. LABORATORY FINDINGS: WBC 24.6, hemoglobin 11.9, hematocrit 37.6, platelets 417. Chemistry showed sodium 138, potassium 3.8, chloride 103, bicarb 25, BUN 12, creatinine 0.71. Troponin was negative. TSH 1.3. Chest x-ray, by my review, showed increased bronchopulmonary markings at bilateral bases. Recent pulmonary function test showed mild restrictive lung disease with normal gas exchange. EKG, by my review, showed sinus tachycardia without significant ST-T wave changes. IMPRESSION: 1. Sepsis, secondary to pneumonia, suspected atypical organism. 2. Persistent sinus tachycardia, probably secondary to sepsis. The patient also had a recent cardiac workup with Dr. Boland. 3. Raynaud phenomenon. 4. Rheumatoid arthritis, on chronic steroids, followed by Dr. Terry. 5. Gastroesophageal reflux disease. 6. Fibromyalgia. 7. Chronic pain syndrome. 8. Interstitial lung disease, followed by Dr. Dawson. 9. Hypochromic microcytic anemia. 10. Chronic kidney disease stage 2. PLAN: The patient will be monitored on the telemetry unit due to persistent tachycardia. We will start her on cefepime with azithromycin. She received ceftriaxone with Solu-Medrol, DuoNebs, and IV fluids in the emergency room. Cultures were not done in the emergency room. We will consult Pulmonary, Dr. Cárdenas. We will increase the dose of steroid to 20 mg p.o. daily. Nebulizer treatment every 4 hours. Resume Symbicort. Resume other home medications including Cardizem for persistent sinus tachycardia. Repeat labs in 24 hours. The patient was seen and examined on 22 February 2019. Plan of care was discussed with the patient in detail. She stated understanding. Job ID: [id number]
[2019-02-23] MEDS: Cefepime 1 GM in Sodium Chloride 0.9% 100 ML IVPB SCH ×2 (03:14→15:06)
[2019-02-23 06:24] LABS: #Monocytes 0.6 thou/uL (0.11-0.59); %Basophils 0.1 % (0.0-1.0); %Eosinophils 0.2 % (0.0-10.0); %Monocytes 2.2 % (0.0-10.0); %Neutrophils 93.5 % (42.0-75.0); Hemoglobin 10.9 g/dL (12.0-16.0); Mean Corpuscular Volume 74.8 fL (78.0-98.0); Mean Platelet Volume 9.9 fL (7.4-10.4); Platelet Count 389 thou/uL (130-400); RBC Distribution Width 13.7 % (11.5-14.5); Red Blood Cell (RBC) Count 4.56 mill/uL (4.20-5.40); White Blood Cell (WBC) Count 25.7 thou/uL (4.8-10.8)
[2019-02-23 06:38] LABS: Anion Gap 12 mmol/L (10-20); BUN (Urea Nitrogen) 12 mg/dL (7.0-18.7); Calc. Creatinine Clearance 167 mL/min (70-130); Calcium 8.9 mg/dL (7.8-10.44); Carbon Dioxide 21 mmol/L (22-29); Chloride 106 mmol/L (98-107); Estimated GFR-MDRD Greater than 90; Glucose 158 mg/dL (70-105); Potassium 3.7 mmol/L (3.5-5.1); Sodium 135 mmol/L (136-145)
[2019-02-23] MEDS: Mometasone/Formoterol 120 PUFF INHALER INH SCH ×2 (06:41→18:21)
[2019-02-23] MEDS ORDERED: predniSONE 20 MG TAB PO SCH (08:00)
[2019-02-23] MEDS: DULoxetine 60 MG CAP PO SCH (09:42)
[2019-02-23] MEDS: guaiFENesin ER 600 MG TAB PO SCH ×2 (09:42→20:27)
[2019-02-23] MEDS: Hydroxychloroquine Sulfate 200 MG TAB PO SCH (09:42)
[2019-02-23] MEDS: Colchicine 0.6 MG TAB PO SCH (09:42)
--- NOTE | 2019-02-23 14:01 | CON ---
DATE OF CONSULTATION: 02/23/2019 CONSULTING PHYSICIAN: Dr. Sanchez. REASON FOR CONSULTATION: Interstitial lung disease and pneumonia. HISTORY OF PRESENT ILLNESS: Ms. Tavares is a 44-year-old female, who was brought into the hospital with a 24-hour history of increasing shortness of breath, chills, productive cough of yellow sputum. She had tried to "tough it out" at home with [id number] remedies, but was unsuccessful. She has had a fever up above 100. She tells me she has been diagnosed with interstitial lung disease that is secondary to either rheumatoid arthritis and/or scleroderma. She is currently under the treatment of a specialist at [facility] for this. They have considered going up on her immunosuppression, but have not done that yet. In the past, she has seen Dr. Dawson in the office, who has confirmed the findings of interstitial lung disease. PAST MEDICAL HISTORY: 1. Rheumatoid arthritis. 2. Raynaud's. 3. Gastroesophageal reflux. 4. Fibromyalgia. 5. Scleroderma. 6. Mild intermittent asthma. 7. Ovarian cyst. 8. Tachyarrhythmia. PAST SURGICAL HISTORY: 1. . 2. Tonsillectomy. 3. D and C. 4. Hernia repair. MEDICATIONS: Prior to admission, 1. Albuterol. 2. Tramadol. 3. Tylenol. 4. Vitamin C. 5. Colchicine. 6. Dexilant. 7. Cardizem. 8. Cymbalta. 9. Plaquenil. 10. Prednisone 5 mg daily. 11. Tizanidine. 12. Symbicort. SOCIAL HISTORY: Lifelong nonsmoker. Does not consume alcohol. She works at [employer] office. FAMILY MEDICAL HISTORY: Remarkable for rheumatoid arthritis, lupus, and Raynaud's. REVIEW OF SYSTEMS: Remarkable for cough, congestion, low-grade fever, joint pains in her hands, and shortness of breath. PHYSICAL EXAMINATION: VITAL SIGNS: Temperature 98.3, pulse 97, respirations 16, O2 saturation 98% on room air, blood pressure 122/59. GENERAL: She is awake, alert, and in no distress. HEENT: Unremarkable. NECK: No adenopathy or JVD. LUNGS: She has diffuse expiratory crackles bilaterally. CARDIAC: S1 and S2. Regular. ABDOMEN: Soft, nontender. EXTREMITIES: She has joint swelling in her PCP joints of her fingers. She has scleroderma changes on the dorsum of her fingers. LABORATORY DATA: White blood cell count of 25.7, hemoglobin 10, hematocrit 34.1, and platelet count 389. Sodium 135, potassium 3.7, chloride 106, CO2 of 21, BUN 12, creatinine 0.6, glucose 158. IMAGING STUDIES: Chest x-ray was reviewed, showed some chronic interstitial changes. ASSESSMENT: 1. Diffuse bronchitis versus pneumonia. 2. Confounding factor of interstitial lung disease. 3. Rheumatoid arthritis. PLAN: 1. Agree with current antibiotics, cefepime and azithromycin. 2. Would change her to IV steroids. 3. Continue breathing treatments. 4. Dr. Dawson will see the patient tomorrow. Job ID: [id number]
[2019-02-23] MEDS ORDERED: Acetaminophen/Codeine 30-300mg Tablet PO PRN (14:20)
--- NOTE | 2019-02-23 14:42 | PDOC.PN ---
- Subjective Encounter Start Date: 02/23/19 Encounter Start Time: 09:30 Patient seen and examined. No overnight events pt has cough, dyspena, no chest pain - Objective Resuscitation Status - Order Detail: 02/23/19 01:29 Resuscitation Status Routine Resuscitation Status: FULL: Full Resuscitation MAR Reviewed: Yes Vital Signs & Weight: Vital Signs (12 hours) Temp Pulse Resp BP Pulse Ox 02/23/19 14:31 84 16 97 02/23/19 12:56 98.0 F 107 H 16 131/60 100 02/23/19 10:34 97 16 98 02/23/19 09:42 86 02/23/19 08:00 98.3 F 86 18 122/59 L 99 02/23/19 06:43 93 16 98 02/23/19 06:41 93 16 98 02/23/19 03:48 98.3 F 84 22 H 110/53 L 96 Weight Weight 209 lb I&O: 02/22/19 02/23/19 02/24/19 06:59 06:59 06:59 Intake Total 1090 Output Total 950 Balance 140 Result Diagrams: 02/23/19 05:17 02/23/19 05:17 Radiology Reviewed by me: Yes EKG Reviewed by me: Yes Phys Exam - Physical Examination Constitutional: NAD HEENT: PERRLA, moist MMs, sclera anicteric Neck: no JVD, supple Respiratory: wheezing present coarse rales Cardiovascular: RRR, no significant murmur, no rub Gastrointestinal: soft, non-tender, no distention, positive bowel sounds Musculoskeletal: no edema, pulses present Neurological: non-focal, normal sensation Lymphatic: no nodes Psychiatric: normal affect, A&O x 3 Skin: no rash, normal turgor Dx/Plan (1) Pneumonia Code(s): J18.9 - PNEUMONIA, UNSPECIFIED ORGANISM Status: Acute Comment: community acquired vs diffuse bronchitis (2) ILD (interstitial lung disease) Code(s): J84.9 - INTERSTITIAL PULMONARY DISEASE, UNSPECIFIED Status: Chronic Comment: with exacerbation (3) Systemic sclerosis with lung involvement Code(s): M34.81 - SYSTEMIC SCLEROSIS WITH LUNG INVOLVEMENT Status: Chronic (4) Obesity (BMI 30.0-34.9) Code(s): E66.9 - OBESITY, UNSPECIFIED Status: Chronic - Plan cont current plan of care, continue antibiotics, respiratory therapy * continue cefepime and azithromycin * continue IV steroid as per pulmonary * medication reviewed as below * symptomatic treatment. * follow culture result * will repeat labs tomorrow. Review of Systems - Review of Systems Constitutional: negative: fever, chills, sweats, weakness, malaise, other Respiratory: Cough, Shortness of Breath, SOB with Excertion. negative: Dry, Hemoptysis, Pleuritic Pain, Sputum, Wheezing Cardiovascular: negative: chest pain, palpitations, orthopnea, paroxysmal nocturnal dyspnea, edema, light headedness, other Gastrointestinal: negative: Nausea, Vomiting, Abdominal Pain, Diarrhea, Constipation, Melena, Hematochezia, Other Genitourinary: negative: Dysuria, Frequency, Incontinence, Hematuria, Retention , Other Musculoskeletal: negative: Neck Pain, Shoulder Pain, Arm Pain, Back Pain, Hand Pain, Leg Pain, Foot Pain, Other - Medications/Allergies Allergies/Adverse Reactions: Allergies Allergy/AdvReac Type Severity Reaction Status Date / Time No Known Allergies Allergy Verified 02/22/19 19:58 Medications: Current Medications Acetaminophen (Tylenol) 650 mg PO Q4H PRN PRN Reason: Headache/Fever/Mild Pain (1-3) Acetaminophen (Tylenol) 325 mg PO Q6H PRN PRN Reason: Moderate Pain (4-6) Acetaminophen/Codeine Phosphate (Tylenol #3) 1 tab PO TIDPRN PRN PRN Reason: Severe Pain (7-10) Albuterol/Ipratropium (Duoneb) 3 ml NEB [id number] [facility] Last Admin: 02/23/19 14:31 Dose: 3 ml Calcium Carbonate (Tums) 1,000 mg PO Q4H PRN PRN Reason: Heartburn or Indigestion Cholecalciferol (Vitamin D3) 5,000 units PO DAILY [facility] Last Admin: 02/23/19 09:41 Dose: 5,000 units Clonidine (Catapres) 0.1 mg PO Q4H PRN PRN Reason: SBP Greater Than 180 Colchicine (Colchicine) 0.6 mg PO DAILY [facility] Last Admin: 02/23/19 09:42 Dose: 0.6 mg Diltiazem HCl (Cardizem Cd) 120 mg PO DAILY [facility] Last Admin: 02/23/19 09:42 Dose: 120 mg Duloxetine HCl (Cymbalta) 60 mg PO DAILY [facility] Last Admin: 02/23/19 09:42 Dose: 60 mg Guaifenesin (Mucinex) 600 mg PO Q12HR [facility] Last Admin: 02/23/19 09:42 Dose: 600 mg Guaifenesin (Robitussin Sf) 200 mg PO Q4H PRN PRN Reason: Cough Hydroxychloroquine Sulfate (Plaquenil) 200 mg PO DAILY [facility] Last Admin: 02/23/19 09:42 Dose: 200 mg Sodium Chloride (Normal Saline 0.9%) 1,000 mls @ 50 mls/hr IV .Q20H [facility] Stop: 02/23/19 21:29 Last Admin: 02/23/19 01:50 Dose: 1,000 mls Azithromycin 500 mg/ Sodium (Chloride) 250 mls @ 250 mls/hr IVPB Q24HR [facility] Last Admin: 02/23/19 01:51 Dose: 250 mls Cefepime HCl 1 gm/ Sodium (Chloride) 100 mls @ 200 mls/hr IVPB 0300,1500 [facility] Last Admin: 02/23/19 03:14 Dose: 100 mls Methylprednisolone Sodium Succinate (Solu-Medrol) 40 mg IVP Q6HR [facility] Mometasone Furoate/Formoterol Fumar (Dulera 200 Mcg/5 Mcg Inhaler) 2 puff INH BID-RT [facility] Last Admin: 02/23/19 06:41 Dose: 2 puff Ondansetron HCl (Zofran Odt) 4 mg PO Q6H PRN PRN Reason: Nausea/Vomiting Ondansetron HCl (Zofran) 4 mg IVP Q6H PRN PRN Reason: Nausea/Vomiting Pantoprazole Sodium (Protonix) 40 mg PO DAILY [facility] Last Admin: 02/23/19 09:42 Dose: 40 mg Sodium Chloride (Flush - Normal Saline) 10 ml IVF PRN PRN PRN Reason: Saline Flush Tizanidine HCl (Zanaflex) 8 mg PO HS [facility] Tramadol HCl (Ultram) 50 mg PO Q6H PRN PRN Reason: Moderate Pain (4-6)
[2019-02-23] MEDS ORDERED: hydrALAZINE 20 MG/ML VIAL SLOW IVP PRN (14:45)
[2019-02-23] MEDS ORDERED: Artificial Tears 18 DROP/0.9 ML EA EYE PRN (14:45)
[2019-02-23] MEDS ORDERED: Loratadine 10 MG TAB PO PRN (14:45)
[2019-02-23] MEDS ORDERED: Loperamide HCl 2 MG CAP PO PRN (14:45)
[2019-02-23] MEDS ORDERED: Bisacodyl 10 MG SUPP PR PRN (14:45)
[2019-02-23] MEDS ORDERED: Senokot S 8.6-50 MG TAB PO PRN (14:45)
[2019-02-23] MEDS ORDERED: Cepastat Lozenges 1 LOZ PO PRN (14:45)
[2019-02-23] MEDS ORDERED: HYDROcodone/Acetaminophen 5/325 mg Tablet PO PRN (14:45)
[2019-02-23] MEDS ORDERED: Sodium Chloride 0.65% Nasal 44 ML BOT EA NARE PRN (14:45)
[2019-02-23] MEDS: methylPREDNISolone Sod Succ 40 MG VIAL IVP SCH ×2 (18:12→23:25)
[2019-02-23] MEDS ORDERED: tiZANidine HCl 4 MG TAB PO SCH (21:00)
[2019-02-24] MEDS: Azithromycin 500 MG in Sodium Chloride 0.9% 250 ML 250 ML IVPB SCH (02:06)
[2019-02-24] MEDS: Cefepime 1 GM in Sodium Chloride 0.9% 100 ML IVPB SCH (03:54)
[2019-02-24 05:43] LABS: #Lymphocytes 1.6 thou/uL (1.20-3.40); #Monocytes 0.5 thou/uL (0.11-0.59); #Neutrophils 23.8 thou/uL (1.40-6.50); %Eosinophils 0.1 % (0.0-10.0); %Lymphocytes 6.1 % (21.0-51.0); %Monocytes 1.9 % (0.0-10.0); %Neutrophils 91.8 % (42.0-75.0); Hemoglobin 11.2 g/dL (12.0-16.0); Mean Corpuscular HGB CONC 31.5 g/dL (32.0-36.0); Mean Corpuscular Hemoglobin 24.6 pg (27.0-31.0); Mean Corpuscular Volume 78.2 fL (78.0-98.0); Mean Platelet Volume 9.6 fL (7.4-10.4); Platelet Count 309 thou/uL (130-400); RBC Distribution Width 15.7 % (11.5-14.5); Red Blood Cell (RBC) Count 4.55 mill/uL (4.20-5.40); White Blood Cell (WBC) Count 25.9 thou/uL (4.8-10.8)
[2019-02-24 05:49] LABS: Anion Gap 11 mmol/L (10-20); BUN (Urea Nitrogen) 11 mg/dL (7.0-18.7); Calc. Creatinine Clearance 162 mL/min (70-130); Calcium 9.3 mg/dL (7.8-10.44); Carbon Dioxide 24 mmol/L (22-29); Chloride 101 mmol/L (98-107); Estimated GFR-MDRD Greater than 90; Glucose 141 mg/dL (70-105); Potassium 4.1 mmol/L (3.5-5.1); Sodium 132 mmol/L (136-145)
[2019-02-24] MEDS: methylPREDNISolone Sod Succ 40 MG VIAL IVP SCH (06:15)
[2019-02-24] MEDS: Mometasone/Formoterol 120 PUFF INHALER INH SCH (07:08)
[2019-02-24 08:26] VITALS: BP 122/69; TEMP 98.1
[2019-02-24] MEDS ORDERED: Doxycycline 100 MG CAP PO SCH (09:00)
[2019-02-24] MEDS: DULoxetine 60 MG CAP PO SCH (09:39)
[2019-02-24] MEDS: Hydroxychloroquine Sulfate 200 MG TAB PO SCH (09:39)
[2019-02-24] MEDS: guaiFENesin ER 600 MG TAB PO SCH (09:39)
[2019-02-24] MEDS: Colchicine 0.6 MG TAB PO SCH (09:39)
--- NOTE | 2019-02-24 09:54 | PRG ---
DATE OF SERVICE: 02/24/2019 SUBJECTIVE: A 44-year-old female with scleroderma, asthmatic bronchitis, presented to the ER with worsening shortness of breath and cough, which was triggered by several different things including URI and smoke. This morning, she is better. She is still weak, feeling some difficulty breathing. Sputum is relatively clear. OBJECTIVE: VITAL SIGNS: Temperature 98, pulse 140, respiratory rate of 20, sats 100% on room air, and blood pressure 120/69. CHEST: No wheezing or crackles. CARDIAC: Normal S1 and S2. No gallops. ABDOMEN: No masses. LABORATORY DATA: White count 25,000. Sodium 132. Otherwise labs unremarkable. Microbiology cultures are negative. Sputum shows no growth at this stage. IMPRESSION: Bronchitis, I doubt pneumonia, scleroderma, asthmatic bronchitis, morbid obesity, and hypertension. Pulmonary standpoint of view, she will discharge home on prednisone taper over a week empiric p.o. antibiotics. PT, supportive care. 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 Job ID: [id number]
--- NOTE | 2019-02-24 10:32 | PDOC.PN ---
- Subjective Encounter Start Date: 02/24/19 Encounter Start Time: 07:45 Patient seen and examined. No new complaints. No overnight events - Objective Resuscitation Status - Order Detail: 02/23/19 01:29 Resuscitation Status Routine Resuscitation Status: FULL: Full Resuscitation MAR Reviewed: Yes Vital Signs & Weight: Vital Signs (12 hours) Temp Pulse Resp BP BP Pulse Ox 02/24/19 09:39 114 H 122/69 02/24/19 08:10 100 02/24/19 07:42 98.1 F 114 H 20 122/69 100 02/24/19 07:09 99 02/24/19 07:05 88 16 99 02/24/19 03:30 98.5 F 77 22 H 109/58 L 99 02/24/19 02:14 72 12 02/24/19 01:27 98 02/23/19 23:32 98.1 F 84 16 112/55 L 97 Weight Weight 209 lb I&O: 02/23/19 02/24/19 02/25/19 06:59 06:59 06:59 Intake Total 1090 180 Output Total 950 Balance 140 180 Result Diagrams: 02/24/19 05:12 02/24/19 05:12 EKG Reviewed by me: Yes Phys Exam - Physical Examination Constitutional: NAD HEENT: PERRLA, moist MMs, sclera anicteric Neck: no JVD, supple Respiratory: no wheezing, no rhonchi rales basal Cardiovascular: RRR, no significant murmur, no rub Gastrointestinal: soft, non-tender, no distention, positive bowel sounds Musculoskeletal: no edema, pulses present Neurological: non-focal, normal sensation, moves all 4 limbs Lymphatic: no nodes Psychiatric: normal affect, A&O x 3 Skin: no rash, normal turgor Dx/Plan (1) Pneumonia Code(s): J18.9 - PNEUMONIA, UNSPECIFIED ORGANISM Status: Acute Comment: community acquired vs diffuse bronchitis (2) ILD (interstitial lung disease) Code(s): J84.9 - INTERSTITIAL PULMONARY DISEASE, UNSPECIFIED Status: Chronic Comment: with exacerbation (3) Systemic sclerosis with lung involvement Code(s): M34.81 - SYSTEMIC SCLEROSIS WITH LUNG INVOLVEMENT Status: Chronic (4) Obesity (BMI 30.0-34.9) Code(s): E66.9 - OBESITY, UNSPECIFIED Status: Chronic - Plan cont current plan of care, continue antibiotics, respiratory therapy * medication reviewed as below * symptomatic treatment * see my discharge lauren. Review of Systems - Review of Systems ENT: negative: Ear Pain, Ear Discharge, Nose Pain, Nose Discharge, Nose Congestion, Mouth Pain, Mouth Swelling, Throat Pain, Throat Swelling, Other Respiratory: Cough, SOB with Excertion. negative: Dry, Shortness of Breath, Hemoptysis, Pleuritic Pain, Sputum, Wheezing Cardiovascular: negative: chest pain, palpitations, orthopnea, paroxysmal nocturnal dyspnea, edema, light headedness, other Gastrointestinal: negative: Nausea, Vomiting, Abdominal Pain, Diarrhea, Constipation, Melena, Hematochezia, Other Genitourinary: negative: Dysuria, Frequency, Incontinence, Hematuria, Retention , Other Musculoskeletal: negative: Neck Pain, Shoulder Pain, Arm Pain, Back Pain, Hand Pain, Leg Pain, Foot Pain, Other Skin: negative: Rash, Lesions, Ramone, Bruising, Other - Medications/Allergies Allergies/Adverse Reactions: Allergies Allergy/AdvReac Type Severity Reaction Status Date / Time No Known Allergies Allergy Verified 02/22/19 19:58 Medications: Current Medications Acetaminophen (Tylenol) 650 mg PO Q4H PRN PRN Reason: Headache/Fever/Mild Pain (1-3) Acetaminophen (Tylenol) 325 mg PO Q6H PRN PRN Reason: Moderate Pain (4-6) Acetaminophen/Codeine Phosphate (Tylenol #3) 1 tab PO TIDPRN PRN PRN Reason: Severe Pain (7-10) Last Admin: 02/23/19 16:29 Dose: 1 tab Hydrocodone Bitart/Acetaminophen (Martin 5/325) 1 tab PO Q4H PRN PRN Reason: Moderate Pain (4-6) Albuterol/Ipratropium (Duoneb) 3 ml NEB [id number] [facility] Last Admin: 02/24/19 07:05 Dose: 3 ml Artificial Tears (Tears Naturale) 2 drop EA EYE PRN PRN PRN Reason: Dry Eyes Bisacodyl (Dulcolax) 10 mg [place] DAILYPRN PRN PRN Reason: Constipation Calcium Carbonate (Tums) 1,000 mg PO Q4H PRN PRN Reason: Heartburn or Indigestion Cholecalciferol (Vitamin D3) 5,000 units PO DAILY [facility] Last Admin: 02/24/19 09:39 Dose: 5,000 units Clonidine (Catapres) 0.1 mg PO Q4H PRN PRN Reason: SBP Greater Than 180 Colchicine (Colchicine) 0.6 mg PO DAILY [facility] Last Admin: 02/24/19 09:39 Dose: 0.6 mg Diltiazem HCl (Cardizem Cd) 120 mg PO DAILY [facility] Last Admin: 02/24/19 09:39 Dose: 120 mg Doxycycline Hyclate (Vibramycin) 100 mg PO BID [facility] Stop: 03/03/19 09:01 Last Admin: 02/24/19 09:40 Dose: 100 mg Duloxetine HCl (Cymbalta) 60 mg PO DAILY [facility] Last Admin: 02/24/19 09:39 Dose: 60 mg Guaifenesin (Mucinex) 600 mg PO Q12HR [facility] Last Admin: 02/24/19 09:39 Dose: 600 mg Guaifenesin (Robitussin Sf) 200 mg PO Q4H PRN PRN Reason: Cough Hydralazine HCl (Apresoline) 10 mg SLOW IVP Q4H PRN PRN Reason: SBP > 180 and HR < 70 Hydroxychloroquine Sulfate (Plaquenil) 200 mg PO DAILY [facility] Last Admin: 02/24/19 09:39 Dose: 200 mg Cefepime HCl 1 gm/ Sodium (Chloride) 100 mls @ 200 mls/hr IVPB 0300,1500 [facility] Last Admin: 02/24/19 03:54 Dose: 100 mls Loperamide HCl (Imodium) 2 mg PO PRN PRN PRN Reason: Diarrhea/Loose Stools Loratadine (Claritin) 10 mg PO DAILYPRN PRN PRN Reason: Sinus Symptoms Mometasone Furoate/Formoterol Fumar (Dulera 200 Mcg/5 Mcg Inhaler) 2 puff INH BID-RT [facility] Last Admin: 02/24/19 07:08 Dose: 2 puff Ondansetron HCl (Zofran Odt) 4 mg PO Q6H PRN PRN Reason: Nausea/Vomiting Ondansetron HCl (Zofran) 4 mg IVP Q6H PRN PRN Reason: Nausea/Vomiting Pantoprazole Sodium (Protonix) 40 mg PO DAILY [facility] Last Admin: 02/24/19 09:39 Dose: 40 mg Prednisone (Prednisone) 20 mg PO QAM-WM [facility] Senna/Docusate Sodium (Senokot S) 2 tab PO BIDPRN PRN PRN Reason: Constipation Sodium Chloride (Flush - Normal Saline) 10 ml IVF PRN PRN PRN Reason: Saline Flush Last Admin: 02/24/19 06:15 Dose: 10 ml Sodium Chloride (Tuttle Nasal [place] 0.65%) 0 ml EA NARE QIDPRN PRN PRN Reason: Nasal Congestion Throat Lozenges (Cepastat Lozenges) 1 carl PO Q2H PRN PRN Reason: Sore Throat Tizanidine HCl (Zanaflex) 8 mg PO HS [facility] Last Admin: 02/23/19 20:27 Dose: 8 mg Tramadol HCl (Ultram) 50 mg PO Q6H PRN PRN Reason: Moderate Pain (4-6)
--- NOTE | 2019-02-24 10:34 | DIS ---
DATE OF ADMISSION: 02/22/2019 DATE OF DISCHARGE: 02/24/2019 PRIMARY CARE PHYSICIAN: Sunil Moore MD DISCHARGE DISPOSITION: Home. PRIMARY DISCHARGE DIAGNOSES: 1. Pneumonia, community-acquired. 2. Interstitial lung disease exacerbation. SECONDARY DISCHARGE DIAGNOSES: Obesity with BMI 33, systemic sclerosis with lung involvement, Raynaud phenomena, gastroesophageal reflux disease, anxiety and depression, chronic low back pain, and asthma. PRIMARY PROCEDURE AND OPERATION: None. RADIOLOGICAL INVESTIGATION: Chest x-ray. SIGNIFICANT LABORATORY DATA: WBC 25.9, hemoglobin 11.2, and platelets 309. Sodium 132, creatinine 0.67, and calcium 9.3. LFT normal. Cardiac enzyme negative. Respiratory culture unremarkable. DISCHARGE MEDICATIONS: 1. Prednisone 20 mg p.o. daily for 1 week, then 10 mg p.o. daily for 7 days. 2. Doxycycline 100 mg p.o. b.i.d. for 7 days. 3. Mucinex 600 mg twice daily for 7 days. Continue following medication: 1. Ventolin inhaler 1 puff q.4 hourly. 2. Tramadol with Tylenol 1 tablet q.6 hourly p.r.n. 3. Tylenol No.4 one tablet t.i.d. p.r.n. 4. Vitamin D3 of 5000 units p.o. daily. 5. Colchicine 0.6 mg p.o. daily. 6. Dexilant 60 mg p.o. daily. 7. Cardizem CD 120 mg daily. 8. Cymbalta 60 mg daily. 9. Plaquenil 200 mg daily. 10. Prednisone 5 mg daily. 11. Zanaflex 8 mg p.o. at bedtime. 12. Symbicort 2 puffs inhalation b.i.d. CONTRAINDICATION: None. CODE STATUS: Full code. INPATIENT PRECISION GRINDER: Pulmonary group was consulted while in hospital. TEST RESULTS PENDING ON DISCHARGE: None. ALLERGIES: NO KNOWN DRUG ALLERGIES. DISCHARGE PLAN: Posthospital, the patient will follow up with Dr. Dawson, Dr. Sunil Moore as well as primary inside technical sales representative. HOSPITAL COURSE: This is a 44-year-old female, who has underlying systemic sclerosis with lung involvement as well as Raynaud phenomena. She was presented to emergency room with increasing cough, increasing shortness of breath, dyspnea on exertion. She was having rattling in her lower lungs. Her chest x-ray was consistent with pneumonia/interstitial lung disease exacerbation. She was admitted to hospital, and she was treated with cefepime and azithromycin. Pulmonary group was consulted, and they started on high-dose steroid. Because of that, her WBC count was high on the day of discharge. The patient was evaluated by Dr. Dawson today, and he agreed with her to go home. The patient also wants to go home today and she does not have any problem with going home today per Pulmonary's recommendation. Based on Pulmonary's recommendation, we changed antibiotic therapy to doxycycline for another 7 days and prednisone taper was prescribed. I have seen and examined the patient bedside today. She is hemodynamically stable. She does have rattling on both basilar lung lo, more on the right side. This patient has occasional wheezing. She is on room air. She is tolerating p.o. well and ambulatory. All new medication prescription sent to her Pharmacy. the patient is overall stable for discharge today. Job ID: [id number]
--- NOTE | 2019-02-24 13:55 | PQF ---
CLINICAL DOCUMENTATION IMPROVEMENT CLARIFICATION FORM: ICD-10 Updated PLEASE DO AN ADDENDUM TO THE PROGRESS NOTE WITH ANY DOCUMENTATION UPDATES OR ADDITIONS AND CARRY THROUGH TO DC SUMMARY. THANK YOU. DATE: 02/24/19 ATTN: DR. MARKS Please exercise your independent, professional judgment in responding to the clarification form. Clinical indicators are provided on the bottom of this form for your review Please check appropriate box(s) to clarify if the following diagnosis has been ruled in or ruled out: "SEPSIS" [ ] Ruled in diagnosis [ ] Continue to treat [ ] Resolved [ x ] Ruled out diagnosis [ ] Cannot rule out diagnosis [ ] Other diagnosis [ ] Unable to determine In addition, please specify: Present on Admission (POA): [ ] Yes [ x ] No [ ] Unable to determine For continuity of documentation, please document condition throughout progress notes and discharge summary. Thank You. 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 All Rights Reserved DONELL [email or web address] Office: [phone] JO
[2019-02-25] MEDS ORDERED: predniSONE 20 MG TAB PO SCH (08:00)
== END 2019-02-24 11:29 | disposition home or self-care (01) | DRG 197 ==
LOC: ERS 14:37 → OBSVTOIN 18:52 → 2SW 18:52
PROVIDERS: ADMIT Internal Medicine; ATTEND Internal Medicine
DX: J84.9 Interstitial pulmonary disease, unspecified (principal); M34.81 Systemic sclerosis with lung involvement; F32.9 Major depressive disorder, single episode, unspecified; K21.9 Gastro-esophageal reflux disease without esophagitis; M06.9 Rheumatoid arthritis, unspecified; D63.1 Anemia in chronic kidney disease; N18.2 Chronic kidney disease, stage 2 (mild); M79.7 Fibromyalgia; J45.20 Mild intermittent asthma, uncomplicated; E66.01 Morbid (severe) obesity due to excess calories; I73.00 Raynaud's syndrome without gangrene; G89.29 Other chronic pain; F41.9 Anxiety disorder, unspecified; Z90.49 Acquired absence of other specified parts of digestive tract; Z68.30 Body mass index [BMI] 30.0-30.9, adult
CPT/HCPCS: 36415; 71045; 80048; 80053; 83735; 84484; 85025; 87070; 87205; 93005; 94640; 94760; 96361; 96365; 96375; J0456; J0692; J0696; J2920; J2930; J3490; J7050; J7512; J7620

== ENCOUNTER 2020-03-15 14:14 | Outpatient (CLI) | payer OTHER ==
--- NOTE | 2020-03-15 15:15 | CT ---
HIGH RESOLUTION CHEST CT WITHOUT CONTRAST: Axial tomograms were obtained with multiplanar reconstruction following high-resolution protocol. INDICATION: Interstitial lung disease. Scleroderma. COMPARISON: Comparison is made to high-resolution chest CT 11/06/2018. FINDINGS: Both lungs again show moderate interstitial lung changes. Subpleural nodularity is again noted. Dif fuse interstitial thickening with reticulonodular process. Fibrotic stranding is again seen prominen t in the lower lobes. Hazy ground-glass opacities consistent with chronic change appear stable. Bro nchiectasis in the lower lobes appears stable. Associated atelectasis in the right lower lobe is sta ble. Mediastinum unremarkable. There continues to be evidence of small pericardial effusion. IMPRESSION: The diffuse bilateral interstitial lung disease does not appear significantly changed from 2019. Sma ll pericardial effusion again noted. POS: AGW
--- NOTE | 2020-03-15 15:29 | MRI ---
MRI LUMBAR SPINE WITHOUT CONTRAST: INDICATION: Intervertebral disk disorder. Low back pain. FINDINGS: The lumbar vertebrae maintain normal height and alignment. The disk spaces are maintained. The lumbar vertebrae and visualized sacrum show diffuse low T1 signal. This is nonspecific and indic ates conversion of yellow marrow. This can be seen with anemia or chronic disease and recommend clin ical correlation. L1-2: No significant disk bulge. Minimal facet arthrosis. No central canal or foraminal stenosis. L2-3: No significant disk bulge. Mild facet arthrosis. No central canal or foraminal stenosis. L3-4: No significant disk bulge. Mild facet arthrosis and hypertrophy. No significant central kimberley l or foraminal stenosis. L4-5: Minimal disk bulge centrally. Small protrusion to the left which extends into the left forami na and subarticular zone. Associated small annular fissure. Mild facet hypertrophy. No significant central canal or foraminal stenosis. L5-S1: Mild broad-based disk bulge abuts the thecal sac. Mild facet arthrosis and hypertrophy. No central canal or foraminal stenosis. IMPRESSION: 1. Small protrusion to the left at L4-5 as described. 2. Mild facet arthrosis at multiple levels is noted. No significant central canal stenosis. 3. Diffuse low T1 signal seen throughout visualized vertebrae. This is nonspecific as described abo ve. POS: AGW
== END 2020-03-15 14:15 | disposition home or self-care (01) ==
LOC: BICCT 14:14
PROVIDERS: ATTEND Internal Medicine Rheumatology
DX: M34.9 Systemic sclerosis, unspecified (principal); M51.17 Intervertebral disc disorders with radiculopathy, lumbosacral region; I31.3 Pericardial effusion (noninflammatory); J84.9 Interstitial pulmonary disease, unspecified; M51.26 Other intervertebral disc displacement, lumbar region; M47.816 Spondylosis without myelopathy or radiculopathy, lumbar region; M47.27 Other spondylosis with radiculopathy, lumbosacral region; R93.7 Abnormal findings on diagnostic imaging of other parts of musculoskeletal system
CPT/HCPCS: 71250; 72148

== ENCOUNTER 2020-09-15 12:45 | Observation (INO) | payer OTHER ==
[2020-09-15 13:29] LABS: #Eosinphils 0.3 thou/uL (0.0-0.7); #Lymphocytes 2.2 thou/uL (1.20-3.40); #Monocytes 1.5 thou/uL (0.11-0.59); #Neutrophils 13.4 thou/uL (1.40-6.50); %Basophils 0.2 % (0.0-1.0); %Eosinophils 1.5 % (0.0-10.0); %Lymphocytes 12.7 % (21.0-51.0); %Monocytes 8.4 % (0.0-10.0); %Neutrophils 77.1 % (42.0-75.0); Hemoglobin 10.2 g/dL (12.0-16.0); Mean Corpuscular HGB CONC 31.4 g/dL (32.0-36.0); Mean Corpuscular Hemoglobin 21.5 pg (27.0-31.0); Mean Corpuscular Volume 68.4 fL (78.0-98.0); Platelet Count 403 thou/uL (130-400); RBC Distribution Width 14.4 % (11.5-14.5); Red Blood Cell (RBC) Count 4.73 mill/uL (4.20-5.40); White Blood Cell (WBC) Count 17.4 thou/uL (4.8-10.8)
--- NOTE | 2020-09-15 13:37 | RAD ---
Exam: Chest one view HISTORY:Cough, fever Comparison: 12/10/2018 FINDINGS: Cardiac silhouette: Normal Aorta: Unremarkable Pulmonary vessels: Normal Costophrenic angles: Clear LUNGS: Scattered interstitial and alveolar opacities. Pneumothorax: None Osseous abnormalities: None IMPRESSION: Scattered interstitial and alveolar opacities. Correlate for pneumonia.
[2020-09-15 13:53] LABS: ALT (SGPT) 7 U/L (8-55); AST (SGOT) 14 U/L (5-34); Albumin 3.3 g/dL (3.5-5.0); Alkaline Phosphatase 98 U/L (40-110); Anion Gap 8 mmol/L (10-20); BUN (Urea Nitrogen) 6 mg/dL (7.0-18.7); Bilirubin, Total 0.3 mg/dL (0.2-1.2); Calc. Creatinine Clearance 0 mL/min (70-130); Calcium 8.5 mg/dL (7.8-10.44); Carbon Dioxide 30 mmol/L (22-29); Chloride 97 mmol/L (98-107); Globulin 3.7 g/dL (2.4-3.5); Glucose 102 mg/dL (70-105); Potassium 3.3 mmol/L (3.5-5.1); Sodium 132 mmol/L (136-145)
[2020-09-15] MEDS ORDERED: Ketorolac Tromethamine 30 MG/ML VIAL ONE (14:11)
[2020-09-15] MEDS ORDERED: Acetaminophen 325 MG TAB ONE (14:11)
[2020-09-15] MEDS ORDERED: cefTRIAXone\\ROCEPHIN 2 GM VIAL ONE (14:57)
[2020-09-15] MEDS ORDERED: Azithromycin 250 MG TAB ONE (14:58)
[2020-09-15] MEDS ORDERED: Azithromycin 500 MG VIAL ONE (15:02)
--- NOTE | 2020-09-15 15:27 | PDOC.HHP ---
Hospitalist HPI Fever History of Present Illness: Ms. Tavares is a 45 year old female with a past medical history of scleroderma, pulmonary fibrosis with interstitial lung disease, Raynaud's who presents to the emergency room for fever and myalgias. Patient had the second dose of her Covid vaccine yesterday. Approximately 8 hours afterwards she developed fevers, chills with fever as high as 104. Patient reports she felt short of breath this morning and needed a nebulizer treatment. She contacted her mushroom growth media mixer and primary care doctor who sent her to the emergency room for further evaluation. Patient also reports a mild dry cough and feels as though her lungs are "acting up". She reports nebulizer use once every few months. Of note she has been off her immunosuppressive medications while she has been receiving the COVID-19 vaccine. She is advised by her mushroom growth media mixer to stop mycophenolate and prednisone a week prior and a few days after vaccine administration. She reports that the also made her feel malaise. She denies chest pain, abdominal pain nausea vomiting diarrhea. She denies changes in vision, numbness weakness paresthesias. In emergency room initial vital signs 125/75, 113, 18, 102.4, 98% on room air. WBC 17.4, H/H 10.2/32.4, platelets 403. BUN/CR 6/0.69, sodium 132, potassium 3.3, lactic acid 0.8. Patient received Tylenol, Toradol, ceftriaxone, azithromycin in the emergency room. Allergies/Adverse Reactions: Allergy/AdvReac Type Severity Reaction Status Date / Time No Known Allergies Allergy Verified 02/22/19 19:58 Home Medications: Medication Instructions Recorded Confirmed Type Cholecalciferol (Vitamin D3) 5,000 unit PO DAILY 12/03/13 02/22/19 History [Vitamin D3] DULoxetine [Cymbalta] 60 mg PO DAILY 12/03/13 02/22/19 History Ventolin HFA Inhaler 1 puff INH Q4HR PRN 12/03/13 02/22/19 History predniSONE 5 mg PO QAM-WM 12/03/13 02/22/19 History Budesonide-Formoterol [Symbicort 2 puff INH BID #1 aer 12/05/13 02/22/19 Rx 160-4.5] Colchicine 0.6 mg PO DAILY 09/08/18 02/22/19 History Hydroxychloroquine Sulfate 200 mg PO DAILY 09/08/18 02/22/19 History [Plaquenil] tiZANidine HCl [Zanaflex] 8 mg PO HS 09/08/18 02/22/19 History Acetaminophen With Codeine 1 tablet PO TID PRN 02/22/19 02/22/19 History [Tylenol with Codeine #4] Dexlansoprazole [Dexilant] 60 mg PO DAILY 02/22/19 02/22/19 History Diltiazem HCl [Diltiazem 24Hr ER 120 mg PO DAILY 02/22/19 02/22/19 History (Cd)] traMADol HCl/Acetaminophen 1 tab PO Q6HR PRN 02/22/19 02/22/19 History [Tramadol-Acetaminophn 37.5-325] Doxycycline [Vibramycin] 100 mg PO BID #14 cap 02/24/19 Rx guaiFENesin ER [Mucinex] 600 mg PO Q12HR #14 tab 02/24/19 Rx predniSONE 20 mg PO QAM-WM #20 tab 02/24/19 Rx Past History: PMHx: Scleroderma, interstitial lung disease, pulmonary fibrosis, Raynaud's, GERD PSHx: D&C, , hernia repair, tonsillectomy FHx: No pertinent family history Social: Patient lives at home with family Hospitalist FEDERICO LUIS Constitutional: reports: fever, chills, weakness, malaise Eyes: denies: pain, vision change, conjunctivae inflammation, eyelid inflammation, redness, other ENT: denies: ear pain, ear discharge, nose pain, nose discharge, nose congestion, mouth pain, mouth swelling, throat pain, throat swelling, other Respiratory: reports: shortness of breath. denies: cough, dry, hemoptysis, SOB with excertion, pleuritic pain, sputum, wheezing, other Cardiovascular: denies: chest pain, palpitations, orthopnea, paroxysmal noc. dyspnea, edema, light headedness, other Gastrointestinal: denies: nausea, vomiting, abdominal pain, diarrhea, constipation, melena, hematochezia, other Genitourinary: denies: dysuria, frequency, incontinence, hematuria, retention, other Musculoskeletal: denies: neck pain, shoulder pain, arm pain, back pain, hand pain, leg pain, foot pain, other Skin: denies: rash, lesions, khloe, bruising, other Neurological: denies: weakness, numbness, incoordination, change in speech, confusion, seizures, other Hospitalist Exam General Appearance: NAD, awake alert Eye: PERRL, anicteric sclera ENT: normocephalic atraumatic, no oropharyngeal lesions, moist mucosa Neck: supple, symmetric, no JVD, no thyromegaly, no lymphadenopathy, no carotid bruit Heart: RRR, no murmur, no gallops, no rubs, normal peripheral pulses Respiratory: normal chest expansion, no tachypnea, normal percussion Respiratory - other findings: Rhonchi throughout Gastrointestinal: soft, non-tender, non-distended, normal bowel sounds, no palpable masses, no hepatomegaly, no splenomegaly, no bruit Extremities: no cyanosis, no clubbing, no edema Skin: normal turgor, no lesions, no rashes Neurological: cranial nerve grossly intact, normal sensation to touch, no weakness, no focal deficits, no new deficit Musculoskeletal: normal tone, normal strength, no muscle wasting Psychiatric: normal affect, normal behavior, A&O x 3 Hospitalist Results Result Diagrams: 09/15/20 13:19 09/15/20 13:19 Lab results: Laboratory Last Values WBC 17.4 thou/uL (4.8-10.8) H 09/15/20 13:19 RBC 4.73 mill/uL (4.20-5.40) 09/15/20 13:19 Hgb 10.2 g/dL (12.0-16.0) L 09/15/20 13:19 Hct 32.4 % (36.0-47.0) L 09/15/20 13:19 MCV 68.4 fL (78.0-98.0) L 09/15/20 13:19 MCH 21.5 pg (27.0-31.0) L 09/15/20 13:19 MCHC 31.4 g/dL (32.0-36.0) L 09/15/20 13:19 RDW 14.4 % (11.5-14.5) 09/15/20 13:19 Plt Count 403 thou/uL (130-400) H 09/15/20 13:19 MPV 8.0 fL (7.4-10.4) 09/15/20 13:19 Neutrophils % 77.1 % (42.0-75.0) H 09/15/20 13:19 Lymphocytes % 12.7 % (21.0-51.0) L 09/15/20 13:19 Monocytes % 8.4 % (0.0-10.0) 09/15/20 13:19 Eosinophils % 1.5 % (0.0-10.0) 09/15/20 13:19 Basophils % 0.2 % (0.0-1.0) 09/15/20 13:19 Neutrophils # 13.4 thou/uL (1.40-6.50) H 09/15/20 13:19 Lymphocytes # 2.2 thou/uL (1.20-3.40) 09/15/20 13:19 Monocytes # 1.5 thou/uL (0.11-0.59) H 09/15/20 13:19 Eosinophils # 0.3 thou/uL (0.0-0.7) 09/15/20 13:19 Basophils # 0.0 thou/uL (0.0-0.2) 09/15/20 13:19 Sodium 132 mmol/L (136-145) L 09/15/20 13:19 Potassium 3.3 mmol/L (3.5-5.1) L 09/15/20 13:19 Chloride 97 mmol/L (98-107) L 09/15/20 13:19 Carbon Dioxide 30 mmol/L (22-29) H 09/15/20 13:19 Anion Gap 8 mmol/L (10-20) L 09/15/20 13:19 BUN 6 mg/dL (7.0-18.7) L 09/15/20 13:19 Creatinine 0.69 mg/dL (0.6-1.1) 09/15/20 13:19 Estimated GFR (MDRD) Greater than 90 09/15/20 13:19 Glucose 102 mg/dL (70-105) 09/15/20 13:19 Lactic Acid 0.8 mmol/L (0.5-2.2) 09/15/20 13:19 Calcium 8.5 mg/dL (7.8-10.44) 09/15/20 13:19 Total Bilirubin 0.3 mg/dL (0.2-1.2) 09/15/20 13:19 AST 14 U/L (5-34) 09/15/20 13:19 ALT 7 U/L (8-55) L 09/15/20 13:19 Alkaline Phosphatase 98 U/L (40-110) 09/15/20 13:19 Serum Total Protein 7.0 g/dL (6.0-8.3) 09/15/20 13:19 Albumin 3.3 g/dL (3.5-5.0) L 09/15/20 13:19 Globulin 3.7 g/dL (2.4-3.5) H 09/15/20 13:19 Albumin/Globulin Ratio 0.9 g/dL (1.2-2.2) L 09/15/20 13:19 Hospitalist H&P A/P Plan: Dyspnea 45-year-old female past medical history of pulmonary interstitial fibrosis, scleroderma presents to the emergency room for fever and shortness of breath after her COVID-19 vaccine. Patient saturating well on room air at rest. Suspect mild exacerbation of patient's underlying interstitial lung disease as since she has been off her mycophenolate and prednisone at the recommendation of her mushroom growth media mixer while getting the COVID-19 vaccine. Likely mild vaccine reaction, however due to patient's significant interstitial lung disease, sc leroderma and multiple comorbidities will keep overnight for observation. Plan Continuous pulse ox monitoring Tylenol, ibuprofen as needed DuoNebs as needed Trend WBC, fever curve SIRS Patient with mild tachycardia to 113, tachypnea to 20. Febrile to 102.4. WBC 17.4, however chronically elevated. Likely secondary to mild vaccine reaction. Blood cultures were done in the emergency room patient did receive ceftriaxone and azithromycin. Since there is no source for infection we will hold off on antibiotics for now. We will follow blood cultures and trend fever curve. Plan Gentle IV fluids Trend fever curve, WBC, lactic acid Follow cultures Scleroderma with interstitial lung disease History of scleroderma on mycophenolate and prednisone. Patient has stopped both these at the direction of her mushroom growth media mixer. Given patient's autoimmune response to the COVID-19 vaccine likely causing her symptoms of dyspnea tachycardia and fever suspect these are worsened since she has held these medications. If patient's symptoms do not improve may consider restarting these early. Plan Continue to hold home anti-inflammatory medications Outpatient follow-up with rheumatology Hypokalemia Patient mildly hypokalemic to 3.3. Will replete and continue to monitor as needed. DVT prophylaxisSCDs Full code Case discussed with attending physician Dr. Coulter who is in agreement with plan above.
[2020-09-15] MEDS ORDERED: Guaifenesin DM 100-10/5 ML UDCUP PO PRN (15:56)
[2020-09-15] MEDS ORDERED: Acetaminophen 325 MG TAB PO PRN (15:56)
[2020-09-15] MEDS ORDERED: Acetaminophen 650 MG Suppository PR PRN (15:56)
[2020-09-15 16:06] LABS: SARS-CoV-2 NAA Rapid Test Not Detected (NotDetected)
[2020-09-15 18:23] VITALS: BMI 33.7
[2020-09-15] MEDS ORDERED: Potassium Chloride 20 MEQ TAB PO SCH (20:15)
[2020-09-15] MEDS ORDERED: Sildenafil Citrate 20 MG TAB PO SCH (23:00)
[2020-09-15] MEDS ORDERED: Temazepam 15 MG CAP PO SCH (23:00)
[2020-09-16 06:51] LABS: #Basophils 0.2 thou/uL (0.0-0.2); #Eosinphils 0.6 thou/uL (0.0-0.7); #Lymphocytes 1.6 thou/uL (1.20-3.40); #Monocytes 1.5 thou/uL (0.11-0.59); #Neutrophils 14.3 thou/uL (1.40-6.50); %Basophils 0.9 % (0.0-1.0); %Eosinophils 3.3 % (0.0-10.0); %Lymphocytes 8.6 % (21.0-51.0); %Monocytes 8.1 % (0.0-10.0); %Neutrophils 79.1 % (42.0-75.0); Hemoglobin 9.9 g/dL (12.0-16.0); Mean Corpuscular HGB CONC 31.8 g/dL (32.0-36.0); Mean Corpuscular Volume 69.3 fL (78.0-98.0); Mean Platelet Volume 8.5 fL (7.4-10.4); Platelet Count 394 thou/uL (130-400); RBC Distribution Width 14.2 % (11.5-14.5); Red Blood Cell (RBC) Count 4.48 mill/uL (4.20-5.40); White Blood Cell (WBC) Count 18.1 thou/uL (4.8-10.8)
[2020-09-16 07:21] LABS: Anion Gap 13 mmol/L (10-20); BUN (Urea Nitrogen) 7 mg/dL (7.0-18.7); Calc. Creatinine Clearance 182 mL/min (70-130); Calcium 8.5 mg/dL (7.8-10.44); Carbon Dioxide 24 mmol/L (22-29); Chloride 103 mmol/L (98-107); Glucose 100 mg/dL (70-105); Potassium 3.6 mmol/L (3.5-5.1); Sodium 136 mmol/L (136-145)
[2020-09-16] MEDS ORDERED: FLU VACC QS2020-21(6MOS UP)/PF 60 MCG/0.5 ML SYRINGE IM ONE (09:00)
[2020-09-16] MEDS ORDERED: Prevnar 13-Val Conj/PF 0.5 ML SYRINGE IM ONE (09:00)
[2020-09-16] MEDS: Sildenafil Citrate 20 MG TAB PO SCH ×2 (09:15→20:18)
[2020-09-16] MEDS ORDERED: hydrOXYzine 25 MG TAB PO PRN (15:41)
[2020-09-16] MEDS ORDERED: Albuterol Sulfate 2.5 mg/3 ml Neb NEB PRN (15:41)
[2020-09-16] MEDS ORDERED: traMADol HCl 50 MG TAB PO PRN (16:12)
[2020-09-16] MEDS ORDERED: Acetaminophen 325 MG TAB PO PRN (16:12)
[2020-09-16] MEDS ORDERED: ACETAMINOPHEN WITH CODEINE PO SCH (17:00)
[2020-09-16] MEDS ORDERED: cefTRIAXone\\ROCEPHIN 1 GM in Sodium Chloride 0.9% 100 ML IVPB SCH (20:00)
[2020-09-16] MEDS: Cyclobenzaprine 10 MG TAB PO SCH (20:18)
[2020-09-16] MEDS ORDERED: Azithromycin 1,000 MG in Sodium Chloride 0.9% 500 ML IVPB SCH (21:00)
[2020-09-16] MEDS ORDERED: Temazepam 15 MG CAP PO SCH (21:00)
[2020-09-16] MEDS: Mometasone 200 MCG/Formoterol 5 MCG 120 PUFF INHALER INH SCH (21:16)
[2020-09-17] MEDS: Mometasone 200 MCG/Formoterol 5 MCG 120 PUFF INHALER INH SCH (06:33)
[2020-09-17] MEDS ORDERED: BIOTIN 5000 MCG SL SCH (09:00)
[2020-09-17] MEDS ORDERED: Hydrochlorothiazide 25 MG TAB PO SCH (09:00)
[2020-09-17] MEDS ORDERED: DULoxetine 60 MG CAP PO SCH (09:00)
[2020-09-17] MEDS ORDERED: Cholecalciferol 1,000 UNITS (25 MCG) TAB PO SCH (09:00)
[2020-09-17] MEDS ORDERED: Potassium Chloride 10 MEQ TAB PO SCH (09:00)
[2020-09-17] MEDS: Cyclobenzaprine 10 MG TAB PO SCH (09:21)
[2020-09-17] MEDS: Sildenafil Citrate 20 MG TAB PO SCH (09:22)
[2020-09-17 16:47] VITALS: BP 104/68; TEMP 98.3
--- NOTE | 2020-09-18 14:07 | PDOC.DS.DS ---
Provider Date of Admission: 09/15/20 15:08 Date of Discharge: 09/17/20 Admitting Provider: Yokasta Coulter MD Primary Care Physician: Sunil Moore MD Course Hospital Course: Patient is a 45-year-old female with a history of system excluded this and interstitial lung disease primarily manifest as pulmonary fibrosis. Patient is followed by immunosuppressant agents. So that the patient can successfully respond to a COVID-19 vaccination. The patient did receive her vaccination and subsequently became febrile. She had some mild respiratory symptoms including some cough and mild dyspnea on exertion. She was noted to chronically have an elevated white blood cell count. Therefore it was not useful in determining if the patient had some secondary infection. She was observed overnight after initially having significant fever. Her fever did reduce substantially however she continued to feel somewhat symptomatic. She was again watched an additional night where she remained afebrile and felt substantially better. She was felt to be stable for discharge to home. She will have a course of antibiotics available to her in order to respond should she have recurrent fever or worsening cough. We discussed the fact that she would likely need to stay off of her immunosuppressants for another 2 weeks. This would give her the best opportunity to fully respond to the COVID-19 vaccination. However, I encouraged her to follow-up with her environmental safety specialist for that discussion soon. Resuscitation Status: 09/15/20 15:56 Resuscitation Status Routine Co-Sign Provider: Resuscitation Status: FULL: Full Resuscitation Lab Results: 09/16/20 06:17 09/16/20 06:17 Microbiology - Entire Visit 09/15/20 14:58 Venous blood - Right Hand Blood Culture - Preliminary NO GROWTH AT 48 HOURS 09/15/20 14:57 Venous blood - Left Hand Blood Culture - Preliminary NO GROWTH AT 48 HOURS Vitals: Weight Weight 209 lb Physical Exam: The patient was seen and examined on the day of discharge. Problem (1) Fever after vaccination Code(s): R50.83 - POSTVACCINATION FEVER Status: Acute (2) Pneumonia Code(s): J18.9 - PNEUMONIA, UNSPECIFIED ORGANISM Status: Acute (3) ILD (interstitial lung disease) Code(s): J84.9 - INTERSTITIAL PULMONARY DISEASE, UNSPECIFIED Status: Chronic (4) Obesity (BMI 30.0-34.9) Code(s): E66.9 - OBESITY, UNSPECIFIED Status: Chronic (5) Systemic sclerosis with lung involvement Code(s): M34.81 - SYSTEMIC SCLEROSIS WITH LUNG INVOLVEMENT Status: Chronic Plan Prescriptions: Levofloxacin [Levaquin] 500 mg PO DAILY #7 tab Home Medications: Medication Instructions Recorded Confirmed Type DULoxetine [Cymbalta] 60 mg PO DAILY 12/03/13 09/15/20 History Budesonide-Formoterol [Symbicort 2 puff INH BID #1 aer 12/05/13 09/15/20 Rx 160-4.5] Acetaminophen With Codeine 1 tablet PO QID 02/22/19 09/15/20 History [Tylenol with Codeine #4] Diltiazem HCl [Diltiazem 24Hr ER 180 mg PO DAILY 02/22/19 09/15/20 History (Cd)] ALButerol Sulfate [Ventolin Neb] 3 ml NEB Q6HR PRN 09/15/20 09/15/20 History Biotin 5,000 mcg SL DAILY 09/15/20 09/15/20 History Buprenorphine [Butrans] 1 patch TD Q7D 09/15/20 09/15/20 History Cholecalciferol (Vitamin D3) 1,000 unit PO DAILY 09/15/20 09/15/20 History [Vitamin D] Cyclobenzaprine [Flexeril] 10 mg PO TID 09/15/20 09/15/20 History Esomeprazole Magnesium [Nexium] 20 mg PO DAILY 09/15/20 09/15/20 History Hydrochlorothiazide 25 mg PO DAILY 09/15/20 09/15/20 History Hydroxychloroquine Sulfate 200 mg PO BID 09/15/20 09/15/20 History [Plaquenil] Mycophenolate [Cellcept] 500 mg PO BID 09/15/20 09/15/20 History Potassium Chloride 10 meq PO DAILY 09/15/20 09/15/20 History Sildenafil Citrate 20 mg PO BID 09/15/20 09/15/20 History Temazepam [Restoril] 15 mg PO HS 09/15/20 09/15/20 History cycloSPORINE [Cequa] 1 each OP BID 09/15/20 09/15/20 History hydrOXYzine [Atarax] 25 mg PO DAILY PRN 09/15/20 09/15/20 History traMADol HCl/Acetaminophen 1 each PO DAILY PRN 09/15/20 09/15/20 History [Ultracet Tablet] Levofloxacin [Levaquin] 500 mg PO DAILY #7 tab 09/17/20 Rx Allergies: No Known Allergies Allergy (Verified 09/15/20 20:51) Discharge Instructions:: Hold the hydroxyzine while taking the Levaquin Activity:: Activity as Tolerated Nourishment:: No Restrictions Referrals: Sunil Moore MD [Primary Care Provider] - 7 Days Disposition: HOME Quality CORE MEASURES:: N/A
--- NOTE | 2020-09-18 18:17 | PDOC.HOSPP ---
- Subjective Encounter Date: 09/16/20 Subjective: Patient was doing a little bit better. She continued to have some dyspnea on exertion and some cough. She did not feel like she was quite to her baseline. - Objective Vital Signs & Weight: Weight Weight 209 lb Result Diagrams: 09/16/20 06:17 09/16/20 06:17 Hospitalist Exam Vitals: Weight Weight 209 lb General Appearance: NAD, awake alert Heart: RRR, no murmur, no gallops, no rubs, normal peripheral pulses Respiratory: rales Respiratory - other findings: Diffuse bilateral Velcro-like wheezes. Slightly less at the apices Gastrointestinal: soft, non-tender, non-distended, normal bowel sounds, no pa lpable masses, no hepatomegaly, no splenomegaly, no bruit Extremities: no cyanosis, no clubbing, no edema Skin: normal turgor Neurological: no focal deficits Musculoskeletal: normal tone, normal strength, no muscle wasting Psychiatric: normal affect, normal behavior, A&O x 3 Hosp A/P (1) Fever after vaccination Code(s): R50.83 - POSTVACCINATION FEVER Status: Acute (2) ILD (interstitial lung disease) Code(s): J84.9 - INTERSTITIAL PULMONARY DISEASE, UNSPECIFIED Status: Chronic (3) Obesity (BMI 30.0-34.9) Code(s): E66.9 - OBESITY, UNSPECIFIED Status: Chronic (4) Systemic sclerosis with lung involvement Code(s): M34.81 - SYSTEMIC SCLEROSIS WITH LUNG INVOLVEMENT Status: Chronic - Plan Patient has some chronic underlying interstitial lung disease related to systemic sclerosis. She is on immunosuppressants but those have been held for several weeks so that she could successfully get the COVID-19 vaccination. Subsequent to the vaccination the patient has had significant fever and some respiratory symptoms. She was admitted to the hospital and started empirically on antibiotics and observation status. She appears to be somewhat better but still somewhat symptomatic as well. Continue with another dose of antibiotics and monitor overnight. She remains afebrile will likely be able to discharge plus or minus oral antibiotics.
== END 2020-09-17 16:35 | disposition home or self-care (01) ==
LOC: ERS 12:45 → T4-B 15:08
PROVIDERS: ADMIT Internal Medicine; ATTEND Internal Medicine
DX: R50.83 Postvaccination fever (principal); T50.B95A Adverse effect of other viral vaccines, initial encounter; J18.9 Pneumonia, unspecified organism; J84.10 Pulmonary fibrosis, unspecified; M34.81 Systemic sclerosis with lung involvement; R65.10 Systemic inflammatory response syndrome (SIRS) of non-infectious origin without acute organ dysfunction; E87.6 Hypokalemia; I73.00 Raynaud's syndrome without gangrene; K21.9 Gastro-esophageal reflux disease without esophagitis; M06.9 Rheumatoid arthritis, unspecified; E66.9 Obesity, unspecified; Z68.33 Body mass index [BMI] 33.0-33.9, adult; Z79.52 Long term (current) use of systemic steroids; Z79.899 Other long term (current) drug therapy; Z20.822 Contact with and (suspected) exposure to COVID-19
CPT/HCPCS: 0240U; 36415; 71045; 80048; 80053; 83605; 85025; 87040; 94640; 96365; 96367; 96375; 96376; G0378; J0456; J0696; J1885; J3490; J7030; J7620

== ENCOUNTER 2020-10-14 12:28 | Outpatient (CLI) | payer OTHER | END 2020-10-14 12:29 | disposition home or self-care (01) | LOC: BICRAD 12:28 | PROVIDERS: ATTEND Internal Medicine Rheumatology | DX: M75.102 Unspecified rotator cuff tear or rupture of left shoulder, not specified as traumatic (principal) ==

== ENCOUNTER 2020-11-09 17:12 | Inpatient (IN) | payer OTHER ==
[2020-11-09 18:10] LABS: Hemoglobin 10.6 g/dL (12.0-16.0); Mean Corpuscular Hemoglobin 20.8 pg (27.0-31.0); Mean Corpuscular Volume 67.1 fL (78.0-98.0); Mean Platelet Volume 8.6 fL (7.4-10.4); Platelet Count 396 thou/uL (130-400); RBC Distribution Width 15.4 % (11.5-14.5); White Blood Cell (WBC) Count 13.5 thou/uL (4.8-10.8)
[2020-11-09 18:29] LABS: ALT (SGPT) 11 U/L (8-55); AST (SGOT) 20 U/L (5-34); Albumin 3.5 g/dL (3.5-5.0); Alkaline Phosphatase 119 U/L (40-110); Anion Gap 9 mmol/L (10-20); BUN (Urea Nitrogen) 8 mg/dL (7.0-18.7); Bilirubin, Total 0.3 mg/dL (0.2-1.2); Calc. Creatinine Clearance 0 mL/min (70-130); Calcium 8.8 mg/dL (7.8-10.44); Carbon Dioxide 29 mmol/L (22-29); Chloride 101 mmol/L (98-107); Globulin 3.9 g/dL (2.4-3.5); Glucose 105 mg/dL (70-105); Potassium 3.6 mmol/L (3.5-5.1); Protein, Total 7.4 g/dL (6.0-8.3); Sodium 135 mmol/L (136-145)
[2020-11-09 18:30] LABS: Band 24 % (5-11); Eosinophils 1 % (0-10); Hypochromia SLIGHT = 6-15 cells (100X) (0-5/hpf); Lymphocytes 9 % (21-51); MDiff Complete? YES; Microcytosis MODERATE=15-30 cells (100X) (0-5/hpf); Monocytes 6 % (0-10); Neutrophil 60 % (42-75); Platelet Morphology Comment Appears Adequate; Polychromasia SLIGHT = 2-3 cells (100X) (0-2/hpf); Target Cells SLIGHT = 2-5 cells (100X) (0-1/hpf)
[2020-11-09] MEDS ORDERED: Acetaminophen 500 MG TAB ONE ×2 (20:37→22:48)
[2020-11-09] MEDS ORDERED: Vancomycin 1 GM/200 ML BAG ONE (20:37)
[2020-11-09 22:05] LABS: SARS-CoV-2 NAA Rapid Test Not Detected (NotDetected)
[2020-11-09] MEDS ORDERED: Piperacillin/Tazobactam 4.5 GM VIAL ONE (22:48)
[2020-11-09 23:37] LABS: Bacteria/HPF None Seen HPF (None Seen); Bilirubin Negative (Negative); Blood, Urine 2+ (Negative); Clarity Clear (Clear); Glucose, Urine (Dipstick) Normal (Negative); Ketone, Urine Negative (Negative); Leukocyte Negative Leu/uL (Negative); Nitrite Negative (Negative); Protein, Urine (Dipstick) Negative (Neg-Trace); Specific Gravity, Urine 1.014 (1.002-1.036); Squamous Epithelial 0-3 HPF (0-3); Urobilinogen Normal mg/dL (Less than 2); WBC/HPF 0-3 HPF (0-3)
[2020-11-09] MEDS ORDERED: Ibuprofen 200 MG TAB ONE (23:39)
[2020-11-10] MEDS ORDERED: Ondansetron PF 4 MG/2 ML Vial IVP PRN (00:37)
[2020-11-10] MEDS ORDERED: Acetaminophen 325 MG TAB PO PRN (00:37)
[2020-11-10] MEDS ORDERED: Ondansetron ODT 4 MG TAB PO PRN (00:37)
[2020-11-10] MEDS ORDERED: Acetaminophen 650 MG Suppository PR PRN (00:37)
[2020-11-10] MEDS ORDERED: Acetaminophen/Codeine 30-300mg Tablet PO PRN (00:49)
[2020-11-10 00:56] VITALS: BMI 34.5
[2020-11-10] MEDS ORDERED: Sodium Chloride 0.9% 1,000 ML IV SCH (01:00)
[2020-11-10] MEDS ORDERED: Vancomycin 1.5 GRAM/300 ML BAG 1.5 GM in Premix Bag 1 BAG IVPB SCH (01:00)
[2020-11-10] MEDS: Piperacillin/Tazobactam 4.5 GM in Sodium Chloride 0.9% 100 ML IVPB SCH ×3 (05:39→21:33)
[2020-11-10 06:01] LABS: #Eosinphils 0.2 thou/uL (0.0-0.7); #Lymphocytes 1.6 thou/uL (1.20-3.40); #Monocytes 0.9 thou/uL (0.11-0.59); #Neutrophils 8.7 thou/uL (1.40-6.50); %Basophils 0.2 % (0.0-1.0); %Eosinophils 2.1 % (0.0-10.0); %Lymphocytes 13.6 % (21.0-51.0); %Monocytes 7.8 % (0.0-10.0); %Neutrophils 76.2 % (42.0-75.0); Hemoglobin 9.4 g/dL (12.0-16.0); Mean Corpuscular HGB CONC 31.4 g/dL (32.0-36.0); Mean Platelet Volume 9.2 fL (7.4-10.4); Platelet Count 353 thou/uL (130-400); RBC Distribution Width 15.5 % (11.5-14.5); Red Blood Cell (RBC) Count 4.48 mill/uL (4.20-5.40); White Blood Cell (WBC) Count 11.5 thou/uL (4.8-10.8)
[2020-11-10 06:20] LABS: Anion Gap 10 mmol/L (10-20); BUN (Urea Nitrogen) 9 mg/dL (7.0-18.7); Calc. Creatinine Clearance 162 mL/min (70-130); Calcium 8.1 mg/dL (7.8-10.44); Carbon Dioxide 24 mmol/L (22-29); Chloride 107 mmol/L (98-107); Glucose 91 mg/dL (70-105); Potassium 3.2 mmol/L (3.5-5.1); Sodium 138 mmol/L (136-145)
[2020-11-10 08:15] LABS: Bacteria/HPF None Seen HPF (None Seen); Bilirubin Negative (Negative); Blood, Urine 2+ (Negative); Clarity Clear (Clear); Glucose, Urine (Dipstick) Normal (Negative); Ketone, Urine Negative (Negative); Leukocyte Negative Leu/uL (Negative); Nitrite Negative (Negative); Protein, Urine (Dipstick) Negative (Neg-Trace); Specific Gravity, Urine 1.014 (1.002-1.036); Squamous Epithelial 0-3 HPF (0-3); Urobilinogen Normal mg/dL (Less than 2); WBC/HPF 0-3 HPF (0-3)
[2020-11-10 08:18] LABS: Urine Culture Reflex No No
[2020-11-10] MEDS: Enoxaparin Sodium 40 MG/0.4 ML SYRINGE SC SCH (10:27)
[2020-11-10] MEDS ORDERED: Albuterol Sulfate 2.5 mg/3 ml Neb NEB PRN (12:07)
[2020-11-10] MEDS ORDERED: traMADol HCl 50 MG TAB PO PRN (12:58)
[2020-11-10] MEDS: HYDROcodone/Acetaminophen 5/325 mg Tablet PO PRN ×2 (12:59→17:57)
[2020-11-10] MEDS ORDERED: Iopamidol 370 76% 100 ML VIAL ONE (14:39)
[2020-11-10] MEDS: Hydroxychloroquine Sulfate 200 MG TAB PO SCH ×2 (15:50→21:28)
[2020-11-10] MEDS: Vancomycin 1.5 GRAM/300 ML BAG 1.5 GM in Premix Bag 1 BAG IVPB SCH (15:51)
[2020-11-10] MEDS: Mometasone 200 MCG/Formoterol 5 MCG 120 PUFF INHALER INH SCH (18:25)
[2020-11-10] MEDS ORDERED: Mycophenolate 250 MG CAP PO SCH (21:00)
[2020-11-10] MEDS: Cyclobenzaprine 10 MG TAB PO SCH (21:27)
[2020-11-10] MEDS: Gabapentin 300 MG CAP PO SCH (21:27)
[2020-11-10] MEDS: Temazepam 15 MG CAP PO SCH (21:32)
[2020-11-10] MEDS: Mycophenolate 250 MG CAP PO SCH (21:32)
[2020-11-10] MEDS: Sildenafil Citrate 20 MG TAB PO SCH (21:33)
[2020-11-10] MEDS ORDERED: diphenhydrAMINE 50 MG/ML VIAL IVP SCH (22:15)
[2020-11-11] MEDS: Vancomycin 1.5 GRAM/300 ML BAG 1.5 GM in Premix Bag 1 BAG IVPB SCH (01:00)
[2020-11-11] MEDS: Piperacillin/Tazobactam 4.5 GM in Sodium Chloride 0.9% 100 ML IVPB SCH ×3 (04:58→21:22)
[2020-11-11 05:34] LABS: #Eosinphils 0.2 thou/uL (0.0-0.7); #Lymphocytes 1.7 thou/uL (1.20-3.40); #Monocytes 1.2 thou/uL (0.11-0.59); #Neutrophils 9.7 thou/uL (1.40-6.50); %Basophils 0.2 % (0.0-1.0); %Eosinophils 1.9 % (0.0-10.0); %Lymphocytes 12.9 % (21.0-51.0); Hemoglobin 9.7 g/dL (12.0-16.0); Mean Corpuscular HGB CONC 30.6 g/dL (32.0-36.0); Mean Corpuscular Hemoglobin 20.5 pg (27.0-31.0); Mean Platelet Volume 9.5 fL (7.4-10.4); Platelet Count 351 thou/uL (130-400); RBC Distribution Width 15.8 % (11.5-14.5); White Blood Cell (WBC) Count 12.8 thou/uL (4.8-10.8)
[2020-11-11 05:58] LABS: Anion Gap 11 mmol/L (10-20); BUN (Urea Nitrogen) 6 mg/dL (7.0-18.7); Calc. Creatinine Clearance 162 mL/min (70-130); Calcium 8.3 mg/dL (7.8-10.44); Carbon Dioxide 24 mmol/L (22-29); Chloride 104 mmol/L (98-107); Glucose 96 mg/dL (70-105); Potassium 3.2 mmol/L (3.5-5.1); Sodium 136 mmol/L (136-145)
[2020-11-11] MEDS: Mometasone 200 MCG/Formoterol 5 MCG 120 PUFF INHALER INH SCH ×2 (07:24→19:18)
[2020-11-11] MEDS: HYDROcodone/Acetaminophen 5/325 mg Tablet PO PRN (09:58)
[2020-11-11] MEDS: Cholecalciferol 1,000 UNITS (25 MCG) TAB PO SCH (09:59)
[2020-11-11] MEDS: Enoxaparin Sodium 40 MG/0.4 ML SYRINGE SC SCH (10:00)
[2020-11-11] MEDS: DULoxetine 60 MG CAP PO SCH (10:00)
[2020-11-11] MEDS: Fluticasone Propionate Nasal Spray 16 gm Bottle NASAL SCH (10:00)
[2020-11-11] MEDS: Hydrochlorothiazide 25 MG TAB PO SCH (10:01)
[2020-11-11] MEDS: Mycophenolate 250 MG CAP PO SCH ×2 (10:02→20:20)
[2020-11-11] MEDS: Hydroxychloroquine Sulfate 200 MG TAB PO SCH ×2 (10:02→20:21)
[2020-11-11] MEDS: BIOTIN 5000 MCG SL SCH (10:04)
[2020-11-11] MEDS: predniSONE 1 MG TAB PO SCH (10:04)
[2020-11-11] MEDS: Potassium Chloride 20 MEQ TAB PO SCH (10:04)
[2020-11-11] MEDS: Sildenafil Citrate 20 MG TAB PO SCH ×2 (10:05→20:19)
[2020-11-11 13:13] LABS: Vancomycin, Trough 11.4 ug/mL
[2020-11-11] MEDS: VANCOMYCIN 1.75 GM/350 ML BAG 1.75 GM in Premix Bag 1 BAG IVPB SCH (15:41)
[2020-11-11] MEDS ORDERED: Potassium Chloride 20 MEQ TAB PO SCH (19:15)
[2020-11-11] MEDS: Gabapentin 300 MG CAP PO SCH (20:18)
[2020-11-11] MEDS: Cyclobenzaprine 10 MG TAB PO SCH (20:18)
[2020-11-11] MEDS: Temazepam 15 MG CAP PO SCH (20:21)
[2020-11-12] MEDS: VANCOMYCIN 1.75 GM/350 ML BAG 1.75 GM in Premix Bag 1 BAG IVPB SCH ×2 (01:23→14:13)
[2020-11-12] MEDS: Piperacillin/Tazobactam 4.5 GM in Sodium Chloride 0.9% 100 ML IVPB SCH ×2 (05:35→14:12)
[2020-11-12 06:20] LABS: #Eosinphils 0.4 thou/uL (0.0-0.7); #Lymphocytes 1.9 thou/uL (1.20-3.40); #Monocytes 0.9 thou/uL (0.11-0.59); #Neutrophils 9.7 thou/uL (1.40-6.50); %Basophils 0.2 % (0.0-1.0); %Lymphocytes 14.5 % (21.0-51.0); %Monocytes 7.3 % (0.0-10.0); %Neutrophils 75.1 % (42.0-75.0); Mean Corpuscular HGB CONC 30.3 g/dL (32.0-36.0); Mean Corpuscular Hemoglobin 20.5 pg (27.0-31.0); Mean Corpuscular Volume 67.7 fL (78.0-98.0); Mean Platelet Volume 9.3 fL (7.4-10.4); Platelet Count 361 thou/uL (130-400); RBC Distribution Width 15.6 % (11.5-14.5); White Blood Cell (WBC) Count 12.9 thou/uL (4.8-10.8)
[2020-11-12 06:40] LABS: Anion Gap 13 mmol/L (10-20); BUN (Urea Nitrogen) 7 mg/dL (7.0-18.7); Calc. Creatinine Clearance 155 mL/min (70-130); Calcium 8.6 mg/dL (7.8-10.44); Carbon Dioxide 22 mmol/L (22-29); Chloride 105 mmol/L (98-107); Glucose 120 mg/dL (70-105); Potassium 3.4 mmol/L (3.5-5.1); Sodium 137 mmol/L (136-145)
[2020-11-12] MEDS: Mometasone 200 MCG/Formoterol 5 MCG 120 PUFF INHALER INH SCH ×2 (07:27→20:02)
[2020-11-12] MEDS: predniSONE 1 MG TAB PO SCH (09:20)
[2020-11-12] MEDS: Fluticasone Propionate Nasal Spray 16 gm Bottle NASAL SCH (09:21)
[2020-11-12] MEDS: Cholecalciferol 1,000 UNITS (25 MCG) TAB PO SCH (09:21)
[2020-11-12] MEDS: Potassium Chloride 20 MEQ TAB PO SCH (09:21)
[2020-11-12] MEDS: Sildenafil Citrate 20 MG TAB PO SCH ×2 (09:21→20:49)
[2020-11-12] MEDS: Hydrochlorothiazide 25 MG TAB PO SCH (09:21)
[2020-11-12] MEDS: Hydroxychloroquine Sulfate 200 MG TAB PO SCH ×2 (09:21→20:48)
[2020-11-12] MEDS: Mycophenolate 250 MG CAP PO SCH ×2 (09:22→20:49)
[2020-11-12] MEDS: DULoxetine 60 MG CAP PO SCH (09:22)
[2020-11-12] MEDS: BIOTIN 5000 MCG SL SCH (09:22)
[2020-11-12] MEDS: Enoxaparin Sodium 40 MG/0.4 ML SYRINGE SC SCH (09:22)
[2020-11-12] MEDS: HYDROcodone/Acetaminophen 5/325 mg Tablet PO PRN ×2 (14:22→20:53)
[2020-11-12] MEDS: SODIUM CHLORIDE 0.9% IVPB SCH (20:47)
[2020-11-12] MEDS: ACYCLOVIR SODIUM IVPB SCH (20:47)
[2020-11-12] MEDS: Cyclobenzaprine 10 MG TAB PO SCH (20:48)
[2020-11-12] MEDS: Gabapentin 300 MG CAP PO SCH (20:48)
[2020-11-12] MEDS: Temazepam 15 MG CAP PO SCH (20:48)
[2020-11-12] MEDS ORDERED: Loratadine 10 MG TAB PO SCH (23:59)
[2020-11-13 01:33] LABS: Vancomycin, Trough 11.8 ug/mL
[2020-11-13] MEDS: SODIUM CHLORIDE 0.9% IVPB SCH ×3 (05:20→21:27)
[2020-11-13] MEDS: ACYCLOVIR SODIUM IVPB SCH ×3 (05:20→21:27)
[2020-11-13] MEDS: Mometasone 200 MCG/Formoterol 5 MCG 120 PUFF INHALER INH SCH ×2 (06:51→18:46)
[2020-11-13] MEDS: DULoxetine 60 MG CAP PO SCH (09:06)
[2020-11-13] MEDS: HYDROcodone/Acetaminophen 5/325 mg Tablet PO PRN (09:06)
[2020-11-13] MEDS: Hydroxychloroquine Sulfate 200 MG TAB PO SCH ×2 (09:07→21:28)
[2020-11-13] MEDS: Cholecalciferol 1,000 UNITS (25 MCG) TAB PO SCH (09:07)
[2020-11-13] MEDS: Fluticasone Propionate Nasal Spray 16 gm Bottle NASAL SCH (09:07)
[2020-11-13] MEDS: BIOTIN 5000 MCG SL SCH (09:08)
[2020-11-13] MEDS: Hydrochlorothiazide 25 MG TAB PO SCH (09:08)
[2020-11-13] MEDS: Sildenafil Citrate 20 MG TAB PO SCH ×2 (09:08→21:28)
[2020-11-13] MEDS: Potassium Chloride 20 MEQ TAB PO SCH ×2 (09:08→21:28)
[2020-11-13] MEDS: predniSONE 1 MG TAB PO SCH (09:08)
[2020-11-13] MEDS: Enoxaparin Sodium 40 MG/0.4 ML SYRINGE SC SCH (09:09)
[2020-11-13] MEDS: Mycophenolate 250 MG CAP PO SCH ×2 (09:09→21:29)
[2020-11-13] MEDS: hydrOXYzine 25 MG TAB PO SCH (19:05)
[2020-11-13] MEDS: Gabapentin 300 MG CAP PO SCH (21:27)
[2020-11-13] MEDS: Cyclobenzaprine 10 MG TAB PO SCH (21:27)
[2020-11-13] MEDS: Temazepam 15 MG CAP PO SCH (21:28)
[2020-11-14] MEDS: SODIUM CHLORIDE 0.9% IVPB SCH ×3 (05:18→22:12)
[2020-11-14] MEDS: ACYCLOVIR SODIUM IVPB SCH ×3 (05:18→22:12)
[2020-11-14] MEDS: Mometasone 200 MCG/Formoterol 5 MCG 120 PUFF INHALER INH SCH ×2 (07:55→18:28)
[2020-11-14] MEDS: Cholecalciferol 1,000 UNITS (25 MCG) TAB PO SCH (08:47)
[2020-11-14] MEDS: Hydroxychloroquine Sulfate 200 MG TAB PO SCH ×2 (08:47→21:21)
[2020-11-14] MEDS: Potassium Chloride 20 MEQ TAB PO SCH ×2 (08:48→21:21)
[2020-11-14] MEDS: hydrOXYzine 25 MG TAB PO SCH ×3 (08:48→21:19)
[2020-11-14] MEDS: Hydrochlorothiazide 25 MG TAB PO SCH (08:48)
[2020-11-14] MEDS: Sildenafil Citrate 20 MG TAB PO SCH ×2 (08:48→21:19)
[2020-11-14] MEDS: DULoxetine 60 MG CAP PO SCH (08:48)
[2020-11-14] MEDS: predniSONE 1 MG TAB PO SCH (08:48)
[2020-11-14] MEDS: BIOTIN 5000 MCG SL SCH (08:49)
[2020-11-14] MEDS: Enoxaparin Sodium 40 MG/0.4 ML SYRINGE SC SCH (08:51)
[2020-11-14] MEDS: Mycophenolate 250 MG CAP PO SCH ×2 (10:13→21:19)
[2020-11-14] MEDS: Fluticasone Propionate Nasal Spray 16 gm Bottle NASAL SCH (10:15)
[2020-11-14] MEDS: Cyclobenzaprine 10 MG TAB PO SCH (21:19)
[2020-11-14] MEDS: Gabapentin 300 MG CAP PO SCH (21:20)
[2020-11-14] MEDS: Temazepam 15 MG CAP PO SCH (21:21)
[2020-11-14 21:39] LABS: QuantiFERON-TB Gold Plus Negative (Negative)
[2020-11-15] MEDS: SODIUM CHLORIDE 0.9% IVPB SCH (06:25)
[2020-11-15] MEDS: ACYCLOVIR SODIUM IVPB SCH (06:25)
[2020-11-15] MEDS: Mometasone 200 MCG/Formoterol 5 MCG 120 PUFF INHALER INH SCH (08:01)
[2020-11-15] MEDS: Enoxaparin Sodium 40 MG/0.4 ML SYRINGE SC SCH (08:59)
[2020-11-15] MEDS: Hydrochlorothiazide 25 MG TAB PO SCH (08:59)
[2020-11-15] MEDS: Cholecalciferol 1,000 UNITS (25 MCG) TAB PO SCH (09:00)
[2020-11-15] MEDS: hydrOXYzine 25 MG TAB PO SCH (09:00)
[2020-11-15] MEDS: predniSONE 1 MG TAB PO SCH (09:00)
[2020-11-15] MEDS: Sildenafil Citrate 20 MG TAB PO SCH (09:00)
[2020-11-15] MEDS: Potassium Chloride 20 MEQ TAB PO SCH (09:01)
[2020-11-15] MEDS: DULoxetine 60 MG CAP PO SCH (09:01)
[2020-11-15] MEDS: Mycophenolate 250 MG CAP PO SCH (09:02)
[2020-11-15] MEDS: Hydroxychloroquine Sulfate 200 MG TAB PO SCH (09:02)
[2020-11-15] MEDS: Fluticasone Propionate Nasal Spray 16 gm Bottle NASAL SCH (09:02)
[2020-11-15] MEDS: BIOTIN 5000 MCG SL SCH (09:03)
[2020-11-15 11:14] VITALS: BP 121/75; TEMP 97.9
[2020-11-15 15:13] LABS: Bartonella henselae IgG Negative titer (Neg:<1:320); Bartonella henselae IgM Negative titer (Neg:<1:100); Bartonella quintana IgG Negative titer (Neg:<1:320); Bartonella quintana IgM Negative titer (Neg:<1:100)
[2020-11-16 06:13] LABS: CMV DNA-PCR Test Negative (Negative)
== END 2020-11-15 11:24 | disposition home or self-care (01) | DRG 866 ==
LOC: ERS 17:12 → T4-A 20:50
PROVIDERS: ADMIT Student in an Organized Health Care Education/Training Program; ATTEND Family Medicine
DX: B02.7 Disseminated zoster (principal); D84.9 Immunodeficiency, unspecified; J84.9 Interstitial pulmonary disease, unspecified; M34.81 Systemic sclerosis with lung involvement; B00.9 Herpesviral infection, unspecified; M06.9 Rheumatoid arthritis, unspecified; J45.909 Unspecified asthma, uncomplicated; I10 Essential (primary) hypertension; D64.9 Anemia, unspecified; J02.9 Acute pharyngitis, unspecified; F32.9 Major depressive disorder, single episode, unspecified; G89.29 Other chronic pain; G47.00 Insomnia, unspecified; E66.9 Obesity, unspecified; I73.00 Raynaud's syndrome without gangrene; I88.9 Nonspecific lymphadenitis, unspecified; J84.10 Pulmonary fibrosis, unspecified; I27.20 Pulmonary hypertension, unspecified; E87.6 Hypokalemia; Z68.35 Body mass index [BMI] 35.0-35.9, adult; Z79.52 Long term (current) use of systemic steroids; Z20.822 Contact with and (suspected) exposure to COVID-19
CPT/HCPCS: 0240U; 36415; 70491; 71045; 80048; 80053; 80202; 81001; 81003; 81015; 83605; 83880; 84484; 85025; 86480; 86611; 87040; 87385; 87497; 87529; 87798; 87899; 93005; 96365; 96374; J0133; J1200; J1650; J2543; J3370; J3490; J7512; J7517; Q9967

== ENCOUNTER 2020-12-16 15:30 | Outpatient (CLI) | payer OTHER | END 2020-12-16 15:31 | disposition home or self-care (01) | LOC: CTENTCT 15:30 | PROVIDERS: ATTEND Otolaryngology Plastic Surgery within the Head & Neck | DX: J01.90 Acute sinusitis, unspecified (principal) | CPT/HCPCS: 70486 ==

== ENCOUNTER 2020-12-22 13:20 | Outpatient (CLI) | payer OTHER | END 2020-12-22 13:21 | disposition home or self-care (01) | LOC: BICRAD 13:20 | PROVIDERS: ATTEND Internal Medicine Pulmonary Disease | DX: R06.00 Dyspnea, unspecified (principal); R91.8 Other nonspecific abnormal finding of lung field | CPT/HCPCS: 71046 ==

== ENCOUNTER 2021-04-26 08:08 | Outpatient (CLI) | payer OTHER | END 2021-04-26 08:09 | disposition home or self-care (01) | LOC: PET 08:08 | DX: R59.0 Localized enlarged lymph nodes (principal); D72.829 Elevated white blood cell count, unspecified; R91.8 Other nonspecific abnormal finding of lung field | CPT/HCPCS: 78815; A9552 ==

== ENCOUNTER 2021-08-05 21:34 | Inpatient (IN) | payer OTHER ==
[2021-08-05] MEDS ORDERED: Acetaminophen 500 MG TAB ONE (22:23)
[2021-08-05 23:00] LABS: #Eosinphils 0.3 thou/uL (0.0-0.7); #Lymphocytes 1.2 thou/uL (1.20-3.40); #Monocytes 0.6 thou/uL (0.11-0.59); #Neutrophils 9.4 thou/uL (1.40-6.50); %Basophils 0.2 % (0.0-1.0); %Eosinophils 2.4 % (0.0-10.0); %Lymphocytes 10.8 % (21.0-51.0); %Monocytes 5.1 % (0.0-10.0); %Neutrophils 81.5 % (42.0-75.0); Mean Corpuscular Hemoglobin 24.8 pg (27.0-31.0); Mean Corpuscular Volume 75.2 fL (78.0-98.0); Mean Platelet Volume 7.3 fL (7.4-10.4); Platelet Count 374 thou/uL (130-400); RBC Distribution Width 15.1 % (11.5-14.5); Red Blood Cell (RBC) Count 4.44 mill/uL (4.20-5.40); White Blood Cell (WBC) Count 11.5 thou/uL (4.8-10.8)
[2021-08-05 23:02] LABS: SARS-CoV-2 NAA Rapid Test Not Detected (NotDetected)
[2021-08-05 23:27] LABS: ALT (SGPT) 13 U/L (8-55); AST (SGOT) 19 U/L (5-34); Albumin 3.4 g/dL (3.5-5.0); Alkaline Phosphatase 99 U/L (40-110); Anion Gap 12 mmol/L (10-20); BUN (Urea Nitrogen) 10 mg/dL (7.0-18.7); Bilirubin, Total 0.2 mg/dL (0.2-1.2); Calc. Creatinine Clearance 0 mL/min (70-130); Calcium 9.5 mg/dL (7.8-10.44); Carbon Dioxide 26 mmol/L (22-29); Chloride 102 mmol/L (98-107); Globulin 3.9 g/dL (2.4-3.5); Glucose 100 mg/dL (70-105); Potassium 3.1 mmol/L (3.5-5.1); Protein, Total 7.3 g/dL (6.0-8.3); Sodium 137 mmol/L (136-145)
[2021-08-06] MEDS ORDERED: Ondansetron ODT 4 MG TAB PO PRN (00:45)
[2021-08-06] MEDS ORDERED: Ondansetron PF 4 MG/2 ML Vial IVP PRN (00:45)
[2021-08-06] MEDS ORDERED: Acetaminophen 650 MG Suppository PR PRN (00:45)
[2021-08-06 01:11] VITALS: BMI 36.7
[2021-08-06] MEDS ORDERED: Piperacillin/Tazobactam 3.375 GM in Sodium Chloride 0.9% 100 ML IVPB SCH ×2 (02:00→09:00)
[2021-08-06] MEDS: Morphine 4 MG/ML VIAL SLOW IVP PRN ×3 (02:30→22:39)
[2021-08-06] MEDS: Sodium Chloride 0.9% 1,000 ML IV SCH ×3 (04:16→23:44)
[2021-08-06] MEDS: Piperacillin/Tazobactam 3.375 GM in Sodium Chloride 0.9% 100 ML IVPB SCH ×2 (04:45→15:22)
[2021-08-06 05:06] LABS: Bacteria/HPF None Seen HPF (None Seen); Bilirubin Negative (Negative); Blood, Urine Negative (Negative); Clarity Clear (Clear); Glucose, Urine (Dipstick) Normal (Negative); Ketone, Urine Negative (Negative); Leukocyte Negative Leu/uL (Negative); Nitrite Negative (Negative); Protein, Urine (Dipstick) Negative (Neg-Trace); RBC/HPF 0-3 HPF (0-3); Specific Gravity, Urine 1.015 (1.002-1.036); Squamous Epithelial 0-3 HPF (0-3); Urobilinogen Normal mg/dL (Less than 2); WBC/HPF 0-3 HPF (0-3)
[2021-08-06 05:14] LABS: Urine Culture Reflex No No
[2021-08-06 07:12] LABS: #Basophils 0.1 thou/uL (0.0-0.2); #Eosinphils 0.3 thou/uL (0.0-0.7); #Lymphocytes 1.4 thou/uL (1.20-3.40); #Monocytes 0.7 thou/uL (0.11-0.59); #Neutrophils 7.3 thou/uL (1.40-6.50); %Basophils 0.5 % (0.0-1.0); %Eosinophils 2.9 % (0.0-10.0); %Lymphocytes 14.8 % (21.0-51.0); %Monocytes 6.9 % (0.0-10.0); %Neutrophils 74.9 % (42.0-75.0); Mean Corpuscular HGB CONC 32.5 g/dL (32.0-36.0); Mean Corpuscular Hemoglobin 24.5 pg (27.0-31.0); Mean Corpuscular Volume 75.3 fL (78.0-98.0); Mean Platelet Volume 7.7 fL (7.4-10.4); Platelet Count 351 thou/uL (130-400); RBC Distribution Width 14.9 % (11.5-14.5); Red Blood Cell (RBC) Count 4.08 mill/uL (4.20-5.40); White Blood Cell (WBC) Count 9.7 thou/uL (4.8-10.8)
[2021-08-06 07:32] LABS: Vancomycin, Random 3.9 ug/mL (See Comment)
[2021-08-06 07:33] LABS: Anion Gap 12 mmol/L (10-20); BUN (Urea Nitrogen) 10 mg/dL (7.0-18.7); Calc. Creatinine Clearance 196 mL/min (70-130); Calcium 8.6 mg/dL (7.8-10.44); Carbon Dioxide 24 mmol/L (22-29); Chloride 103 mmol/L (98-107); Glucose 89 mg/dL (70-105); Sodium 136 mmol/L (136-145)
[2021-08-06 07:37] LABS: Potassium 2.9 mmol/L (3.5-5.1)
[2021-08-06] MEDS ORDERED: Vancomycin HCl 1.75 GM in Sodium Chloride 0.9% 500 ML IVPB SCH (08:00)
[2021-08-06] MEDS ORDERED: Potassium Chloride 40 MEQ in Sodium Chloride 0.9% 500 ML IVPB SCH (08:00)
[2021-08-06] MEDS: Enoxaparin Sodium 40 MG/0.4 ML SYRINGE SC SCH (08:03)
[2021-08-06] MEDS: Vancomycin HCl 1.75 GM in Sodium Chloride 0.9% 500 ML IVPB SCH (13:33)
[2021-08-06] MEDS ORDERED: Temazepam 15 MG CAP PO PRN (14:23)
[2021-08-06] MEDS ORDERED: Cefepime 2 GM in Sodium Chloride 0.9% 100 ML IVPB SCH (16:00)
[2021-08-06] MEDS: Sildenafil Citrate 20 MG TAB PO SCH ×2 (16:18→20:02)
[2021-08-06] MEDS: Mometasone 200 MCG/Formoterol 5 MCG 120 PUFF INHALER INH SCH (18:15)
[2021-08-06] MEDS: Cefepime 2 GM in Sodium Chloride 0.9% 100 ML IVPB SCH (18:49)
[2021-08-06] MEDS: Mycophenolate 250 MG CAP PO SCH (19:31)
[2021-08-06] MEDS: Gabapentin 300 MG CAP PO SCH (20:02)
[2021-08-06] MEDS: Hydroxychloroquine Sulfate 200 MG TAB PO SCH (20:02)
[2021-08-06] MEDS: Cyclobenzaprine 10 MG TAB PO SCH (20:02)
[2021-08-06] MEDS: hydrOXYzine 25 MG TAB PO PRN (20:08)
[2021-08-06] MEDS ORDERED: NINTEDANIB ESYLATE 150 MG PO SCH (21:00)
[2021-08-06] MEDS: Acetaminophen 325 MG TAB PO PRN (22:42)
[2021-08-06] MEDS ORDERED: Ibuprofen 800 MG TAB PO SCH (23:59)
[2021-08-07] MEDS ORDERED: Sodium Chloride 0.9% 500 ML IV SCH (00:15)
[2021-08-07] MEDS: Vancomycin HCl 1.75 GM in Sodium Chloride 0.9% 500 ML IVPB SCH ×2 (02:10→14:31)
[2021-08-07] MEDS: Cefepime 2 GM in Sodium Chloride 0.9% 100 ML IVPB SCH ×2 (05:42→18:51)
[2021-08-07] MEDS: Mometasone 200 MCG/Formoterol 5 MCG 120 PUFF INHALER INH SCH ×2 (05:42→19:14)
[2021-08-07 06:48] LABS: #Basophils 0.1 thou/uL (0.0-0.2); #Eosinphils 0.3 thou/uL (0.0-0.7); #Monocytes 0.7 thou/uL (0.11-0.59); #Neutrophils 7.2 thou/uL (1.40-6.50); %Basophils 0.7 % (0.0-1.0); %Eosinophils 3.2 % (0.0-10.0); %Lymphocytes 10.8 % (21.0-51.0); %Monocytes 7.9 % (0.0-10.0); %Neutrophils 77.6 % (42.0-75.0); Hemoglobin 9.9 g/dL (12.0-16.0); Mean Corpuscular Hemoglobin 25.1 pg (27.0-31.0); Mean Corpuscular Volume 76.1 fL (78.0-98.0); Mean Platelet Volume 7.9 fL (7.4-10.4); Platelet Count 341 thou/uL (130-400); RBC Distribution Width 14.9 % (11.5-14.5); Red Blood Cell (RBC) Count 3.96 mill/uL (4.20-5.40); White Blood Cell (WBC) Count 9.3 thou/uL (4.8-10.8)
[2021-08-07 07:03] LABS: Anion Gap 10 mmol/L (10-20); BUN (Urea Nitrogen) 7 mg/dL (7.0-18.7); CRP (Inflammatory) 7.78 mg/dL (= or < 0.5); Calc. Creatinine Clearance 214 mL/min (70-130); Calcium 8.6 mg/dL (7.8-10.44); Carbon Dioxide 26 mmol/L (22-29); Chloride 107 mmol/L (98-107); Glucose 103 mg/dL (70-105); Magnesium 1.7 mg/dL (1.6-2.6); Sodium 140 mmol/L (136-145)
[2021-08-07 07:08] LABS: Potassium 2.9 mmol/L (3.5-5.1)
[2021-08-07 08:35] LABS: Actual Bicarbonate (HCO3a) 18.4 mEq/L (22-28); Base Excess (BEa) -5.6 mEq/L (-2.0 to +3.0); CO2 Tension 31.3 mmHg (35.0-45.0); Calcium, Ionized (arterial) 1.14 mmol/L (1.12-1.30); Carboxyhemoglobin (COHb) 0.2 gm% (0.0-3.0); Hemoglobin (Hb) 11.7 g/dL (12.0-16.0); O2 Tension (PaO2), arterial 210.8 mmHg (80.0-100.0); Potassium - ABG Lab 3.62 mmol/L (3.70-5.30); pH, Arterial 7.39 (7.35-7.45)
[2021-08-07 08:36] LABS: ALV-art Gradient 463.075 mmHg (0-20); Puncture Site LRA
[2021-08-07] MEDS: Lorazepam 2 MG/ML VIAL SLOW IVP PRN (08:49)
[2021-08-07] MEDS: Acetaminophen 325 MG TAB PO PRN (10:32)
[2021-08-07] MEDS: Hydroxychloroquine Sulfate 200 MG TAB PO SCH ×2 (10:32→20:24)
[2021-08-07] MEDS: Mycophenolate 250 MG CAP PO SCH (10:33)
[2021-08-07] MEDS: Diltiazem HCl CD 300 mg Capsule PO SCH (10:33)
[2021-08-07] MEDS: Enoxaparin Sodium 40 MG/0.4 ML SYRINGE SC SCH (10:35)
[2021-08-07] MEDS: Cholecalciferol 1,000 UNITS (25 MCG) TAB PO SCH (10:35)
[2021-08-07] MEDS: Sildenafil Citrate 20 MG TAB PO SCH ×3 (10:35→20:24)
[2021-08-07] MEDS: DULoxetine 60 MG CAP PO SCH (10:35)
[2021-08-07] MEDS: Potassium Chloride 10 MEQ TAB PO SCH (10:40)
[2021-08-07] MEDS ORDERED: Iopamidol-370 76% 500 ML 1 ML ONE (11:22)
[2021-08-07] MEDS ORDERED: Ibuprofen 200 MG TAB PO SCH (12:30)
[2021-08-07] MEDS: Potassium Chloride 20 MEQ TAB PO SCH ×2 (14:31→20:24)
[2021-08-07] MEDS: methylPREDNISolone Sod Succ 40 MG VIAL IVP SCH ×2 (14:31→20:25)
[2021-08-07] MEDS: Ibuprofen 200 MG TAB PO SCH ×2 (15:19→20:25)
[2021-08-07] MEDS: Gabapentin 300 MG CAP PO SCH (20:24)
[2021-08-07] MEDS: hydrOXYzine 25 MG TAB PO PRN (20:24)
[2021-08-07] MEDS: Cyclobenzaprine 10 MG TAB PO SCH (20:24)
[2021-08-08] MEDS: Potassium Chloride 20 MEQ TAB PO SCH ×2 (00:07→05:41)
[2021-08-08] MEDS: Vancomycin HCl 1.75 GM in Sodium Chloride 0.9% 500 ML IVPB SCH ×2 (02:12→15:42)
[2021-08-08] MEDS: Cefepime 2 GM in Sodium Chloride 0.9% 100 ML IVPB SCH ×2 (05:40→19:11)
[2021-08-08] MEDS: methylPREDNISolone Sod Succ 40 MG VIAL IVP SCH (05:40)
[2021-08-08] MEDS: Mometasone 200 MCG/Formoterol 5 MCG 120 PUFF INHALER INH SCH ×2 (05:58→20:08)
[2021-08-08 06:31] LABS: Band 24 % (5-11); Eosinophils 1 % (0-10); Hemoglobin 10.4 g/dL (12.0-16.0); Lymphocytes 12 % (21-51); MDiff Complete? YES; Mean Corpuscular HGB CONC 31.9 g/dL (32.0-36.0); Mean Corpuscular Hemoglobin 24.4 pg (27.0-31.0); Mean Corpuscular Volume 76.4 fL (78.0-98.0); Mean Platelet Volume 8.4 fL (7.4-10.4); Monocytes 5 % (0-10); Neutrophil 58 % (42-75); Nucleated RBC 1 % (0); Platelet Count 252 thou/uL (130-400); Platelet Morphology Comment Appears Adequate; RBC Distribution Width 14.8 % (11.5-14.5); Red Blood Cell (RBC) Count 4.27 mill/uL (4.20-5.40); White Blood Cell (WBC) Count 9.6 thou/uL (4.8-10.8)
[2021-08-08 06:33] LABS: Anion Gap 9 mmol/L (10-20); BUN (Urea Nitrogen) 12 mg/dL (7.0-18.7); Calc. Creatinine Clearance 190 mL/min (70-130); Calcium 9.3 mg/dL (7.8-10.44); Carbon Dioxide 24 mmol/L (22-29); Chloride 110 mmol/L (98-107); Glucose 169 mg/dL (70-105); Potassium 3.7 mmol/L (3.5-5.1); Sodium 139 mmol/L (136-145)
[2021-08-08] MEDS: Sildenafil Citrate 20 MG TAB PO SCH ×4 (09:31→20:22)
[2021-08-08] MEDS: Hydroxychloroquine Sulfate 200 MG TAB PO SCH ×2 (09:31→20:22)
[2021-08-08] MEDS: DULoxetine 60 MG CAP PO SCH (09:32)
[2021-08-08] MEDS: Ibuprofen 200 MG TAB PO SCH (09:32)
[2021-08-08] MEDS: Cholecalciferol 1,000 UNITS (25 MCG) TAB PO SCH (09:33)
[2021-08-08] MEDS: Potassium Chloride 10 MEQ TAB PO SCH (09:33)
[2021-08-08] MEDS: Enoxaparin Sodium 40 MG/0.4 ML SYRINGE SC SCH (09:35)
[2021-08-08] MEDS: Diltiazem HCl CD 300 mg Capsule PO SCH (09:35)
[2021-08-08 13:46] LABS: Vancomycin, Trough Less than 1.1 ug/mL
[2021-08-08] MEDS: Linezolid 600 MG in Premix Bag 1 BAG IVPB SCH (16:04)
[2021-08-08] MEDS: Gabapentin 300 MG CAP PO SCH (20:22)
[2021-08-08] MEDS: Cyclobenzaprine 10 MG TAB PO SCH (20:22)
[2021-08-08] MEDS: hydrOXYzine 25 MG TAB PO PRN (20:29)
[2021-08-09] MEDS: Acetaminophen 325 MG TAB PO PRN ×4 (03:07→20:22)
[2021-08-09] MEDS: Linezolid 600 MG in Premix Bag 1 BAG IVPB SCH ×2 (03:10→15:42)
[2021-08-09] MEDS: Cefepime 2 GM in Sodium Chloride 0.9% 100 ML IVPB SCH ×2 (05:16→18:39)
[2021-08-09] MEDS: Hydroxychloroquine Sulfate 200 MG TAB PO SCH ×2 (08:26→20:18)
[2021-08-09] MEDS: Cholecalciferol 1,000 UNITS (25 MCG) TAB PO SCH (08:26)
[2021-08-09] MEDS: predniSONE 5 MG TAB PO SCH (08:26)
[2021-08-09] MEDS: Potassium Chloride 10 MEQ TAB PO SCH (08:26)
[2021-08-09] MEDS: Sildenafil Citrate 20 MG TAB PO SCH ×3 (08:26→20:18)
[2021-08-09] MEDS: Diltiazem HCl CD 300 mg Capsule PO SCH (08:26)
[2021-08-09] MEDS: Enoxaparin Sodium 40 MG/0.4 ML SYRINGE SC SCH (08:27)
[2021-08-09 08:31] LABS: Mean Platelet Volume 8.3 fL (7.4-10.4); Platelet Count 288 thou/uL (130-400); RBC Distribution Width 15.1 % (11.5-14.5); Red Blood Cell (RBC) Count 4.17 mill/uL (4.20-5.40); White Blood Cell (WBC) Count 4.8 thou/uL (4.8-10.8)
[2021-08-09 08:34] LABS: ALT (SGPT) 24 U/L (8-55); AST (SGOT) 31 U/L (5-34); Albumin 3.1 g/dL (3.5-5.0); Alkaline Phosphatase 95 U/L (40-110); Anion Gap 12 mmol/L (10-20); BUN (Urea Nitrogen) 8 mg/dL (7.0-18.7); Bilirubin, Total 0.2 mg/dL (0.2-1.2); Calc. Creatinine Clearance 187 mL/min (70-130); Calcium 8.7 mg/dL (7.8-10.44); Carbon Dioxide 27 mmol/L (22-29); Chloride 105 mmol/L (98-107); Glucose 91 mg/dL (70-105); Potassium 3.6 mmol/L (3.5-5.1); Protein, Total 6.1 g/dL (6.0-8.3); Sodium 140 mmol/L (136-145)
[2021-08-09] MEDS: Mometasone 200 MCG/Formoterol 5 MCG 120 PUFF INHALER INH SCH ×2 (09:10→18:39)
[2021-08-09 09:51] LABS: Band 22 % (5-11); Eosinophils 5 % (0-10); Lymphocytes 33 % (21-51); MDiff Complete? YES; Microcytosis SLIGHT = 6-15 cells (100X) (0-5/hpf); Monocytes 2 % (0-10); Neutrophil 38 % (42-75); Platelet Morphology Comment Appears Adequate; Polychromasia SLIGHT = 2-3 cells (100X) (0-2/hpf)
[2021-08-09] MEDS: Ibuprofen 200 MG TAB PO PRN (11:48)
[2021-08-09] MEDS: Gabapentin 300 MG CAP PO SCH (20:17)
[2021-08-09] MEDS: Cyclobenzaprine 10 MG TAB PO SCH (20:17)
[2021-08-10] MEDS: Linezolid 600 MG in Premix Bag 1 BAG IVPB SCH ×2 (03:13→15:53)
[2021-08-10] MEDS: Lorazepam 2 MG/ML VIAL SLOW IVP PRN ×2 (03:22→23:44)
[2021-08-10] MEDS: Acetaminophen 325 MG TAB PO PRN ×6 (03:22→23:44)
[2021-08-10] MEDS: Cefepime 2 GM in Sodium Chloride 0.9% 100 ML IVPB SCH ×2 (06:43→18:25)
[2021-08-10] MEDS: Mometasone 200 MCG/Formoterol 5 MCG 120 PUFF INHALER INH SCH ×2 (07:19→18:25)
[2021-08-10] MEDS: Diltiazem HCl CD 300 mg Capsule PO SCH (07:57)
[2021-08-10] MEDS: Sildenafil Citrate 20 MG TAB PO SCH ×3 (07:58→20:28)
[2021-08-10] MEDS: predniSONE 5 MG TAB PO SCH (07:58)
[2021-08-10] MEDS: Potassium Chloride 10 MEQ TAB PO SCH (07:58)
[2021-08-10] MEDS: Hydroxychloroquine Sulfate 200 MG TAB PO SCH ×2 (07:58→20:29)
[2021-08-10] MEDS: Cholecalciferol 1,000 UNITS (25 MCG) TAB PO SCH (07:58)
[2021-08-10] MEDS: Enoxaparin Sodium 40 MG/0.4 ML SYRINGE SC SCH (07:59)
[2021-08-10] MEDS: Ibuprofen 200 MG TAB PO PRN (10:34)
[2021-08-10] MEDS ORDERED: Iopamidol-370 76% 500 ML 1 ML ONE (10:37)
[2021-08-10] MEDS: Gabapentin 300 MG CAP PO SCH (20:29)
[2021-08-10] MEDS: Cyclobenzaprine 10 MG TAB PO SCH (20:29)
[2021-08-10 22:37] LABS: CMV DNA-PCR Test Negative (Negative)
[2021-08-11 00:52] LABS: Troponin I Less than 0.010 ng/mL (< 0.028)
[2021-08-11] MEDS: Ibuprofen 200 MG TAB PO PRN ×2 (01:48→15:21)
[2021-08-11] MEDS: Linezolid 600 MG in Premix Bag 1 BAG IVPB SCH (03:17)
[2021-08-11] MEDS: Acetaminophen 325 MG TAB PO PRN ×3 (05:31→21:28)
[2021-08-11] MEDS: Cefepime 2 GM in Sodium Chloride 0.9% 100 ML IVPB SCH (06:20)
[2021-08-11] MEDS: Mometasone 200 MCG/Formoterol 5 MCG 120 PUFF INHALER INH SCH ×2 (07:11→19:53)
[2021-08-11 07:53] LABS: SARS-CoV-2 PCR by NAA Not Detected (NotDetected)
[2021-08-11] MEDS: Potassium Chloride 10 MEQ TAB PO SCH (08:25)
[2021-08-11] MEDS: predniSONE 5 MG TAB PO SCH (08:25)
[2021-08-11] MEDS: Cholecalciferol 1,000 UNITS (25 MCG) TAB PO SCH (08:25)
[2021-08-11] MEDS: Enoxaparin Sodium 40 MG/0.4 ML SYRINGE SC SCH (08:25)
[2021-08-11] MEDS: Hydroxychloroquine Sulfate 200 MG TAB PO SCH ×2 (08:25→21:25)
[2021-08-11] MEDS: Sildenafil Citrate 20 MG TAB PO SCH ×3 (08:26→21:25)
[2021-08-11] MEDS: Diltiazem HCl CD 300 mg Capsule PO SCH (08:26)
[2021-08-11] MEDS ORDERED: ALPRAZolam 1 MG TAB PO SCH (09:30)
[2021-08-11] MEDS ORDERED: WATER IVPB SCH (12:00)
[2021-08-11] MEDS ORDERED: TRIMETHOPRIM IVPB SCH (12:00)
[2021-08-11] MEDS ORDERED: SULFAMETHOXAZOLE IVPB SCH (12:00)
[2021-08-11] MEDS ORDERED: DEXTROSE 5% IVPB SCH (12:00)
[2021-08-11 16:54] LABS: Reference Lab Name LABCORP
[2021-08-11 16:55] LABS: Ref Lab Test Ordered RESP VIRAL PANEL
[2021-08-11 19:23] LABS: SARS-CoV-2 IgG Spike Ab Interp Reactive (NonReactive); SARS-CoV-2 IgG Spike Conc/Indx 3479.4 AU/mL (0.00-50.0)
[2021-08-11 21:01] LABS: Legionella Urinary Ag Negative (Negative); Strep pneumo Urine Ag NEGATIVE (NEGATIVE)
[2021-08-11] MEDS: Cyclobenzaprine 10 MG TAB PO SCH (21:24)
[2021-08-11] MEDS: methylPREDNISolone Sod Succ 40 MG VIAL IVP SCH (21:24)
[2021-08-11] MEDS: Gabapentin 300 MG CAP PO SCH (21:24)
[2021-08-11] MEDS: Lorazepam 2 MG/ML VIAL SLOW IVP PRN (22:17)
[2021-08-12 00:29] LABS: Actual Bicarbonate (HCO3a) 24.5 mEq/L (22-28); Base Excess (BEa) 0.6 mEq/L (-2.0 to +3.0); CO2 Tension 36.3 mmHg (35.0-45.0); Calcium, Ionized (arterial) 1.12 mmol/L (1.12-1.30); Carboxyhemoglobin (COHb) 0.3 gm% (0.0-3.0); Hemoglobin (Hb) 9.4 g/dL (12.0-16.0); O2 Tension (PaO2), arterial 80.8 mmHg (80.0-100.0); Potassium - ABG Lab 3.08 mmol/L (3.70-5.30); pH, Arterial 7.45 (7.35-7.45)
[2021-08-12] MEDS ORDERED: Lorazepam 2 MG/ML VIAL SLOW IVP PRN (00:45)
[2021-08-12] MEDS ORDERED: Temazepam 15 MG CAP PO PRN (00:47)
[2021-08-12] MEDS ORDERED: Cyclobenzaprine 10 MG TAB PO SCH (00:49)
[2021-08-12] MEDS ORDERED: Gabapentin 300 MG CAP PO SCH (00:50)
[2021-08-12 01:25] LABS: HBSAg Index 0.26 S/CO (0-0.99); Hep B Surf Ag Non-Reactive S/CO (NonReactive); Hep C IgG Ab Non-Reactive (NonReactive); Hep C Index 0.19 S/CO (0-0.79)
[2021-08-12 01:26] LABS: HBCM Index 0.07 S/CO (0-0.79); Hep A IgM AB Non-Reactive (NonReactive); Hep A IgM S/CO 0.09 S/CO (0-0.79); Hepatitis B Core IgM Abs Non-Reactive (NonReactive)
[2021-08-12 01:27] LABS: HIV (1/2) Antibody/Antigen Non-Reactive (NonReactive); HIV 1/2 INDEX 0.07 S/CO (<1.00)
[2021-08-12 05:29] LABS: Puncture Site LRA
[2021-08-12 05:31] LABS: ALV-art Gradient 73.465 mmHg (0-20)
[2021-08-12] MEDS: Potassium Chloride 10 MEQ TAB PO SCH (08:31)
[2021-08-12] MEDS: Diltiazem HCl CD 300 mg Capsule PO SCH (08:31)
[2021-08-12] MEDS: Cholecalciferol 1,000 UNITS (25 MCG) TAB PO SCH (08:31)
[2021-08-12] MEDS: Enoxaparin Sodium 40 MG/0.4 ML SYRINGE SC SCH (08:31)
[2021-08-12] MEDS: methylPREDNISolone Sod Succ 40 MG VIAL IVP SCH ×2 (08:32→21:08)
[2021-08-12] MEDS: Sildenafil Citrate 20 MG TAB PO SCH ×3 (08:32→21:10)
[2021-08-12] MEDS: Hydroxychloroquine Sulfate 200 MG TAB PO SCH ×2 (08:34→21:08)
[2021-08-12] MEDS: Mometasone 200 MCG/Formoterol 5 MCG 120 PUFF INHALER INH SCH ×2 (09:46→19:58)
[2021-08-12] MEDS: Acetaminophen 325 MG TAB PO PRN (21:21)
[2021-08-13] MEDS: Mometasone 200 MCG/Formoterol 5 MCG 120 PUFF INHALER INH SCH (06:56)
[2021-08-13] MEDS: Potassium Chloride 10 MEQ TAB PO SCH (07:38)
[2021-08-13] MEDS: Cholecalciferol 1,000 UNITS (25 MCG) TAB PO SCH (08:31)
[2021-08-13] MEDS: methylPREDNISolone Sod Succ 40 MG VIAL IVP SCH (08:34)
[2021-08-13] MEDS: Enoxaparin Sodium 40 MG/0.4 ML SYRINGE SC SCH (08:35)
[2021-08-13] MEDS: Diltiazem HCl CD 300 mg Capsule PO SCH (08:45)
[2021-08-13] MEDS: Hydroxychloroquine Sulfate 200 MG TAB PO SCH ×2 (08:45→20:12)
[2021-08-13] MEDS: Sildenafil Citrate 20 MG TAB PO SCH ×3 (08:46→20:12)
[2021-08-13 12:28] LABS: Ref Lab Test Ordered KARIUS; Reference Lab Name KARIUS
[2021-08-13] MEDS: Sulfameth/Trimethoprim DS 800-160mg TAB PO SCH (20:12)
[2021-08-13] MEDS ORDERED: hydrOXYzine 10 MG TAB PO SCH (20:30)
[2021-08-14 06:39] LABS: Hemoglobin 9.9 g/dL (12.0-16.0); Mean Corpuscular HGB CONC 32.2 g/dL (32.0-36.0); Mean Corpuscular Volume 74.7 fL (78.0-98.0); Mean Platelet Volume 8.8 fL (7.4-10.4); Platelet Count 358 thou/uL (130-400); RBC Distribution Width 15.7 % (11.5-14.5); Red Blood Cell (RBC) Count 4.12 mill/uL (4.20-5.40); White Blood Cell (WBC) Count 32.6 thou/uL (4.8-10.8)
[2021-08-14 06:45] LABS: Anion Gap 14 mmol/L (10-20); BUN (Urea Nitrogen) 9 mg/dL (7.0-18.7); Calc. Creatinine Clearance 170 mL/min (70-130); Calcium 9.3 mg/dL (7.8-10.44); Carbon Dioxide 21 mmol/L (22-29); Chloride 107 mmol/L (98-107); Glucose 104 mg/dL (70-105); Potassium 3.5 mmol/L (3.5-5.1); Sodium 138 mmol/L (136-145)
[2021-08-14 07:05] LABS: Band 6 % (5-11); Lymphocytes 26 % (21-51); MDiff Complete? YES; Monocytes 9 % (0-10); Myelocyte 1 % (0-0); Neutrophil 58 % (42-75)
[2021-08-14] MEDS: Potassium Chloride 10 MEQ TAB PO SCH (07:30)
[2021-08-14] MEDS: predniSONE 20 MG TAB PO SCH (07:30)
[2021-08-14] MEDS: Enoxaparin Sodium 40 MG/0.4 ML SYRINGE SC SCH (08:32)
[2021-08-14] MEDS: Cholecalciferol 1,000 UNITS (25 MCG) TAB PO SCH (08:32)
[2021-08-14] MEDS: Sulfameth/Trimethoprim DS 800-160mg TAB PO SCH ×3 (08:33→20:24)
[2021-08-14] MEDS: Diltiazem HCl CD 300 mg Capsule PO SCH (08:33)
[2021-08-14] MEDS: Hydroxychloroquine Sulfate 200 MG TAB PO SCH ×2 (08:34→20:24)
[2021-08-14] MEDS: Sildenafil Citrate 20 MG TAB PO SCH ×3 (08:34→21:17)
[2021-08-14] MEDS ORDERED: DULoxetine 60 MG CAP PO SCH (12:15)
[2021-08-14] MEDS ORDERED: Loperamide HCl 2 MG CAP PO PRN (17:06)
[2021-08-14] MEDS ORDERED: Gabapentin 300 MG CAP PO SCH (21:00)
[2021-08-15 03:19] VITALS: TEMP 98.1
[2021-08-15] MEDS ORDERED: DULoxetine 60 MG CAP PO SCH (09:00)
[2021-08-15] MEDS: Cholecalciferol 1,000 UNITS (25 MCG) TAB PO SCH (09:25)
[2021-08-15] MEDS: Potassium Chloride 10 MEQ TAB PO SCH (09:26)
[2021-08-15] MEDS: predniSONE 20 MG TAB PO SCH (09:26)
[2021-08-15] MEDS: Sulfameth/Trimethoprim DS 800-160mg TAB PO SCH ×2 (09:26→14:52)
[2021-08-15] MEDS: Diltiazem HCl CD 300 mg Capsule PO SCH (09:27)
[2021-08-15] MEDS: Sildenafil Citrate 20 MG TAB PO SCH ×2 (09:27→14:52)
[2021-08-15] MEDS: Hydroxychloroquine Sulfate 200 MG TAB PO SCH (09:27)
[2021-08-15] MEDS: Enoxaparin Sodium 40 MG/0.4 ML SYRINGE SC SCH (09:28)
[2021-08-15 10:51] LABS: Hemoglobin 10.2 g/dL (12.0-16.0); Mean Corpuscular HGB CONC 32.2 g/dL (32.0-36.0); Mean Corpuscular Volume 74.7 fL (78.0-98.0); Mean Platelet Volume 8.9 fL (7.4-10.4); Platelet Count 373 thou/uL (130-400); Red Blood Cell (RBC) Count 4.22 mill/uL (4.20-5.40); White Blood Cell (WBC) Count 34.1 thou/uL (4.8-10.8)
[2021-08-15 11:20] LABS: Band 9 % (5-11); Eosinophils 1 % (0-10); Hypochromia SLIGHT = 6-15 cells (100X) (0-5/hpf); Lymphocytes 36 % (21-51); MDiff Complete? YES; Metamyelocyte 1 % (0-0); Microcytosis SLIGHT = 6-15 cells (100X) (0-5/hpf); Monocytes 5 % (0-10); Myelocyte 1 % (0-0); Neutrophil 46 % (42-75); Nucleated RBC 1 % (0); Platelet Morphology Comment Appears Adequate; Polychromasia SLIGHT = 2-3 cells (100X) (0-2/hpf); Reactive Lymphocytes 1 % (0-10)
[2021-08-15 12:03] VITALS: BP 137/83
[2021-08-18 10:17] LABS: Reference Lab Name KARIUS
== END 2021-08-15 16:26 | disposition home or self-care (01) | DRG 871 ==
LOC: ERS 21:34 → T4-A 23:54 → OBSVTOIN 08-07 08:39 → CCU 08-12 01:28 → SURG A 08-12 16:55
PROVIDERS: ADMIT Student in an Organized Health Care Education/Training Program; ATTEND Internal Medicine
DX: A41.9 Sepsis, unspecified organism (principal); B59 Pneumocystosis; T80.211A Bloodstream infection due to central venous catheter, initial encounter; M86.8X4 Other osteomyelitis, hand; Z20.822 Contact with and (suspected) exposure to COVID-19; Y84.8 Other medical procedures as the cause of abnormal reaction of the patient, or of later complication, without mention of misadventure at the time of the procedure; I10 Essential (primary) hypertension; D64.9 Anemia, unspecified; I27.20 Pulmonary hypertension, unspecified; E55.9 Vitamin D deficiency, unspecified; K21.9 Gastro-esophageal reflux disease without esophagitis; F32.A Depression, unspecified; E66.9 Obesity, unspecified; J84.112 Idiopathic pulmonary fibrosis; D86.9 Sarcoidosis, unspecified; I73.00 Raynaud's syndrome without gangrene; M79.7 Fibromyalgia; M06.9 Rheumatoid arthritis, unspecified; J45.909 Unspecified asthma, uncomplicated; E87.6 Hypokalemia; Z87.39 Personal history of other diseases of the musculoskeletal system and connective tissue; Z68.36 Body mass index [BMI] 36.0-36.9, adult; Z79.51 Long term (current) use of inhaled steroids; Z79.899 Other long term (current) drug therapy
CPT/HCPCS: 36415; 36416; 36600; 71045; 71275; 74177; 80048; 80053; 80074; 80202; 81001; 82805; 83605; 83735; 83880; 84145; 84484; 85025; 86140; 86769; 87040; 87045; 87046; 87071; 87086; 87324; 87385; 87389; 87427; 87449; 87497; 87899; 93005; 93010; 93306; 93970; 94640; 96365; 96375; 96376; G0378; J0692; J1650; J2020; J2060; J2270; J2543; J2920; J3370; J3480; J3490; J7030; J7050; J7070; J7512; J7620; Q9967; U0002; U0003; U0005

== ENCOUNTER 2022-02-28 11:30 | Outpatient (CLI) | payer BC | END 2022-02-28 11:31 | disposition home or self-care (01) | LOC: BICMAMMO 11:30 | PROVIDERS: ATTEND Family Medicine | DX: Z12.31 Encounter for screening mammogram for malignant neoplasm of breast (principal) | CPT/HCPCS: 77063; 77067 ==

== ENCOUNTER 2022-03-11 22:32 | Inpatient (IN) | payer BC ==
[2022-03-11 23:20] LABS: Hemoglobin 13.6 g/dL (12.0-16.0); Mean Corpuscular HGB CONC 33.2 g/dL (32.0-36.0); Mean Corpuscular Hemoglobin 27.8 pg (27.0-31.0); Mean Corpuscular Volume 83.6 fL (78.0-98.0); Mean Platelet Volume 9.4 fL (7.4-10.4); Platelet Count 461 thou/uL (130-400); RBC Distribution Width 13.6 % (11.5-14.5); Red Blood Cell (RBC) Count 4.91 mill/uL (4.20-5.40); White Blood Cell (WBC) Count 21.8 thou/uL (4.8-10.8)
[2022-03-11] MEDS ORDERED: Cefepime 1 GM VIAL ONE (23:33)
[2022-03-11 23:37] LABS: Anion Gap 15 mmol/L (10-20); BUN (Urea Nitrogen) 11 mg/dL (7.0-18.7); Calc. Creatinine Clearance 0 mL/min (70-130); Carbon Dioxide 24 mmol/L (22-29); Chloride 101 mmol/L (98-107); Sodium 137 mmol/L (136-145)
[2022-03-11 23:38] LABS: Calcium 9.9 mg/dL (7.8-10.44); Estimated GFR 104; Glucose 99 mg/dL (70-105)
[2022-03-11 23:45] LABS: Band 1 % (5-11); Eosinophils 2 % (0-10); Lymphocytes 13 % (21-51); MDiff Complete? YES; Monocytes 3 % (0-10); Neutrophil 81 % (42-75)
[2022-03-11] MEDS ORDERED: VANCOMYCIN 2 GRAM/500 ML BAG 2 GM in Premix Bag 1 BAG IVPB SCH (23:45)
[2022-03-11 23:56] LABS: Potassium 2.8 mmol/L (3.5-5.1)
[2022-03-12] MEDS ORDERED: Ondansetron PF 4 MG/2 ML Vial IVP PRN (00:36)
[2022-03-12] MEDS ORDERED: HYDROcodone/Acetaminophen 5/325 mg Tablet PO PRN (00:36)
[2022-03-12] MEDS ORDERED: Potassium Chloride 20 MEQ TAB ONE (00:44)
[2022-03-12] MEDS ORDERED: Potassium Chloride 20 MEQ in Premix Bag 1 BAG IVPB SCH (01:00)
[2022-03-12] MEDS ORDERED: Electrolyte Replacement Protocol 1 EACH FS PRN (01:15)
[2022-03-12 02:55] VITALS: BMI 32.9
[2022-03-12] MEDS ORDERED: Potassium Chloride 20 MEQ TAB PO SCH ×2 (03:45→08:00)
[2022-03-12] MEDS: Acetaminophen 325 MG TAB PO PRN ×3 (04:46→16:34)
[2022-03-12] MEDS ORDERED: Temazepam 15 MG CAP PO PRN (06:21)
[2022-03-12] MEDS ORDERED: Ivabradine 5 MG TAB PO SCH (06:30)
[2022-03-12] MEDS: Mometasone 200 MCG/Formoterol 5 MCG 120 PUFF INHALER INH SCH ×2 (07:26→18:42)
[2022-03-12 07:27] LABS: Hemoglobin 12.3 g/dL (12.0-16.0); Mean Corpuscular HGB CONC 32.6 g/dL (32.0-36.0); Mean Platelet Volume 8.6 fL (7.4-10.4); Platelet Count 367 thou/uL (130-400); RBC Distribution Width 13.4 % (11.5-14.5); Red Blood Cell (RBC) Count 4.56 mill/uL (4.20-5.40); White Blood Cell (WBC) Count 20.1 thou/uL (4.8-10.8)
[2022-03-12 07:40] LABS: Anion Gap 15 mmol/L (10-20); BUN (Urea Nitrogen) 11 mg/dL (7.0-18.7); Calc. Creatinine Clearance 158 mL/min (70-130); Calcium 8.8 mg/dL (7.8-10.44); Carbon Dioxide 19 mmol/L (22-29); Chloride 105 mmol/L (98-107); Estimated GFR 110; Glucose 111 mg/dL (70-105); Magnesium 1.2 mg/dL (1.6-2.6); Sodium 136 mmol/L (136-145)
[2022-03-12 07:45] LABS: Potassium 2.9 mmol/L (3.5-5.1)
[2022-03-12 07:59] LABS: Band 6 % (5-11); MDiff Complete? YES; Monocytes 4 % (0-10); Neutrophil 88 % (42-75); Platelet Morphology Comment Appears Adequate; Polychromasia SLIGHT = 2-3 cells (100X) (0-2/hpf); Reactive Lymphocytes 2 % (0-10)
[2022-03-12] MEDS ORDERED: Sodium Chloride 0.9% 500 ML IV SCH (08:45)
[2022-03-12] MEDS ORDERED: Non-Formulary Item 1 EACH (Esomeprazole Magnesium [Nexium] 20 MG Capsule.Dr) PO SCH (09:00)
[2022-03-12] MEDS ORDERED: SILDENAFIL CITRATE 20 MG PO SCH (09:00)
[2022-03-12] MEDS ORDERED: NINTEDANIB ESYLATE 150 MG PO SCH (09:00)
[2022-03-12] MEDS ORDERED: Magnesium Sulfate In Water 4 GM in Premix Bag 1 BAG IVPB SCH (09:00)
[2022-03-12] MEDS: Mycophenolate 250 MG CAP PO SCH ×2 (09:07→21:50)
[2022-03-12] MEDS: DULoxetine 60 MG CAP PO SCH (09:07)
[2022-03-12] MEDS: Potassium Chloride 20 MEQ TAB PO SCH ×3 (09:07→16:29)
[2022-03-12] MEDS: Enoxaparin Sodium 40 MG/0.4 ML SYRINGE SC SCH (09:09)
[2022-03-12] MEDS: Sildenafil Citrate 20 MG TAB PO SCH ×3 (09:54→21:50)
[2022-03-12] MEDS: Hydroxychloroquine Sulfate 200 MG TAB PO SCH ×2 (09:54→21:49)
[2022-03-12] MEDS ORDERED: Magnesium Sulfate 3 GM in Sodium Chloride 0.9% 100 ML IVPB SCH (10:00)
[2022-03-12] MEDS ORDERED: Cefepime 1 GM in Sodium Chloride 0.9% 100 ML IVPB SCH (12:00)
[2022-03-12] MEDS: VANCOMYCIN 1.75 GM/500 ML BAG 1.75 GM in Premix Bag 1 BAG IVPB SCH (12:12)
[2022-03-12] MEDS: Cefepime 2 GM in Sodium Chloride 0.9% 100 ML IVPB SCH (13:28)
[2022-03-12] MEDS ORDERED: Heparin 1,000 UNITS/ML VIAL ONE (16:22)
[2022-03-12] MEDS: Gabapentin 300 MG CAP PO SCH (21:49)
[2022-03-12] MEDS: Ivabradine 5 MG TAB PO SCH (21:50)
[2022-03-13] MEDS: Acetaminophen 325 MG TAB PO PRN ×2 (00:06→23:04)
[2022-03-13] MEDS: Cefepime 2 GM in Sodium Chloride 0.9% 100 ML IVPB SCH ×3 (00:07→23:03)
[2022-03-13] MEDS: VANCOMYCIN 1.75 GM/500 ML BAG 1.75 GM in Premix Bag 1 BAG IVPB SCH ×3 (00:07→23:41)
[2022-03-13] MEDS ORDERED: Sodium Chloride 0.9% 500 ML IVPB SCH ×2 (04:00→05:15)
[2022-03-13 05:12] LABS: Anion Gap 12 mmol/L (10-20); BUN (Urea Nitrogen) 15 mg/dL (7.0-18.7); Calc. Creatinine Clearance 110 mL/min (70-130); Calcium 7.8 mg/dL (7.8-10.44); Carbon Dioxide 17 mmol/L (22-29); Chloride 107 mmol/L (98-107); Estimated GFR 77; Glucose 110 mg/dL (70-105); Magnesium 1.8 mg/dL (1.6-2.6); Potassium 3.8 mmol/L (3.5-5.1); Sodium 132 mmol/L (136-145)
[2022-03-13 05:16] LABS: Band 16 % (5-11); Hemoglobin 10.9 g/dL (12.0-16.0); Lymphocytes 5 % (21-51); MDiff Complete? YES; Mean Corpuscular HGB CONC 32.7 g/dL (32.0-36.0); Mean Corpuscular Hemoglobin 27.4 pg (27.0-31.0); Mean Corpuscular Volume 83.9 fL (78.0-98.0); Mean Platelet Volume 8.7 fL (7.4-10.4); Monocytes 1 % (0-10); Neutrophil 78 % (42-75); Platelet Count 398 thou/uL (130-400); RBC Distribution Width 13.7 % (11.5-14.5); Red Blood Cell (RBC) Count 3.97 mill/uL (4.20-5.40); White Blood Cell (WBC) Count 32.9 thou/uL (4.8-10.8)
[2022-03-13] MEDS: Mometasone 200 MCG/Formoterol 5 MCG 120 PUFF INHALER INH SCH ×2 (07:15→19:27)
[2022-03-13] MEDS ORDERED: Magnesium 2 GM/50 ML(in water) 2 GM in Premix Bag 1 BAG IVPB SCH (08:00)
[2022-03-13] MEDS ORDERED: Acetaminophen 500 MG TAB PO SCH (08:30)
[2022-03-13] MEDS: Mycophenolate 250 MG CAP PO SCH ×2 (09:17→21:25)
[2022-03-13] MEDS: Hydroxychloroquine Sulfate 200 MG TAB PO SCH ×2 (09:17→21:25)
[2022-03-13] MEDS: Enoxaparin Sodium 40 MG/0.4 ML SYRINGE SC SCH (09:17)
[2022-03-13] MEDS: DULoxetine 60 MG CAP PO SCH (09:18)
[2022-03-13] MEDS: Ivabradine 5 MG TAB PO SCH ×2 (09:19→21:24)
[2022-03-13] MEDS: Sildenafil Citrate 20 MG TAB PO SCH ×2 (09:19→13:46)
[2022-03-13] MEDS ORDERED: Iopamidol 370 76% 100 ML VIAL ONE (09:21)
[2022-03-13] MEDS: Lactated Ringer's 1,000 ML IV SCH ×2 (09:22→21:22)
[2022-03-13 11:21] LABS: Vancomycin, Trough 19.9 ug/mL
[2022-03-13] MEDS: Gabapentin 300 MG CAP PO SCH (21:24)
[2022-03-13] MEDS: hydrOXYzine 25 MG TAB PO PRN (21:25)
[2022-03-14 05:28] LABS: Anion Gap 13 mmol/L (10-20); BUN (Urea Nitrogen) 14 mg/dL (7.0-18.7); Calc. Creatinine Clearance 105 mL/min (70-130); Calcium 7.7 mg/dL (7.8-10.44); Carbon Dioxide 17 mmol/L (22-29); Chloride 108 mmol/L (98-107); Estimated GFR 72; Glucose 100 mg/dL (70-105); Potassium 3.2 mmol/L (3.5-5.1); Sodium 135 mmol/L (136-145)
[2022-03-14 05:38] LABS: Mean Corpuscular HGB CONC 32.4 g/dL (32.0-36.0); Mean Corpuscular Hemoglobin 27.1 pg (27.0-31.0); Mean Corpuscular Volume 83.6 fL (78.0-98.0); Platelet Count 402 thou/uL (130-400); RBC Distribution Width 13.7 % (11.5-14.5); Red Blood Cell (RBC) Count 4.05 mill/uL (4.20-5.40)
[2022-03-14 05:39] LABS: Band 22 % (5-11); Lymphocytes 3 % (21-51); MDiff Complete? YES; Monocytes 1 % (0-10); Neutrophil 74 % (42-75)
[2022-03-14] MEDS: Mometasone 200 MCG/Formoterol 5 MCG 120 PUFF INHALER INH SCH ×2 (07:08→18:31)
[2022-03-14] MEDS ORDERED: Potassium Chloride 20 MEQ TAB PO SCH (08:00)
[2022-03-14] MEDS: Hydroxychloroquine Sulfate 200 MG TAB PO SCH ×2 (10:13→21:35)
[2022-03-14] MEDS: Mycophenolate 250 MG CAP PO SCH ×2 (10:13→21:35)
[2022-03-14] MEDS: Sildenafil Citrate 20 MG TAB PO SCH ×2 (10:13→21:35)
[2022-03-14] MEDS: Ivabradine 5 MG TAB PO SCH ×2 (10:15→21:34)
[2022-03-14] MEDS: DULoxetine 60 MG CAP PO SCH (10:15)
[2022-03-14] MEDS: Enoxaparin Sodium 40 MG/0.4 ML SYRINGE SC SCH (10:16)
[2022-03-14] MEDS: Cefepime 2 GM in Sodium Chloride 0.9% 100 ML IVPB SCH ×2 (11:59→23:05)
[2022-03-14] MEDS: Vancomycin 1.5 GRAM/300 ML BAG 1.5 GM in Premix Bag 1 BAG IVPB SCH (13:30)
[2022-03-14] MEDS: VANCOMYCIN 1.75 GM/500 ML BAG 1.75 GM in Premix Bag 1 BAG IVPB SCH (13:42)
[2022-03-14] MEDS ORDERED: Azithromycin 500 MG in Sodium Chloride 0.9% 250 ML 250 ML IVPB SCH ×2 (16:00→17:00)
[2022-03-14 17:45] LABS: Legionella Urinary Ag Negative (Negative); Strep pneumo Urine Ag NEGATIVE (NEGATIVE)
[2022-03-14] MEDS: Gabapentin 300 MG CAP PO SCH (21:34)
[2022-03-14] MEDS: Acetaminophen 325 MG TAB PO PRN (21:34)
[2022-03-14] MEDS: hydrOXYzine 25 MG TAB PO PRN (21:35)
[2022-03-15] MEDS: Vancomycin 1.5 GRAM/300 ML BAG 1.5 GM in Premix Bag 1 BAG IVPB SCH ×2 (00:03→13:22)
[2022-03-15] MEDS: Mometasone 200 MCG/Formoterol 5 MCG 120 PUFF INHALER INH SCH ×2 (07:15→19:41)
[2022-03-15 09:11] LABS: Anion Gap 10 mmol/L (10-20); BUN (Urea Nitrogen) 9 mg/dL (7.0-18.7); Calc. Creatinine Clearance 142 mL/min (70-130); Calcium 7.8 mg/dL (7.8-10.44); Carbon Dioxide 19 mmol/L (22-29); Chloride 111 mmol/L (98-107); Estimated GFR 99; Glucose 97 mg/dL (70-105); Magnesium 2.1 mg/dL (1.6-2.6); Potassium 3.1 mmol/L (3.5-5.1); Sodium 137 mmol/L (136-145)
[2022-03-15] MEDS ORDERED: Potassium Chloride 20 MEQ TAB PO SCH (09:30)
[2022-03-15 09:36] LABS: Hemoglobin 10.2 g/dL (12.0-16.0); Mean Corpuscular HGB CONC 33.3 g/dL (32.0-36.0); Mean Corpuscular Hemoglobin 27.2 pg (27.0-31.0); Mean Corpuscular Volume 81.7 fL (78.0-98.0); Mean Platelet Volume 8.9 fL (7.4-10.4); Platelet Count 386 thou/uL (130-400); RBC Distribution Width 13.6 % (11.5-14.5); Red Blood Cell (RBC) Count 3.75 mill/uL (4.20-5.40); White Blood Cell (WBC) Count 23.5 thou/uL (4.8-10.8)
[2022-03-15] MEDS: DULoxetine 60 MG CAP PO SCH (09:54)
[2022-03-15] MEDS: Sildenafil Citrate 20 MG TAB PO SCH ×2 (09:55→22:04)
[2022-03-15] MEDS: Enoxaparin Sodium 40 MG/0.4 ML SYRINGE SC SCH ×2 (09:56→09:58)
[2022-03-15] MEDS: Hydroxychloroquine Sulfate 200 MG TAB PO SCH ×2 (10:05→22:04)
[2022-03-15] MEDS: Ivabradine 5 MG TAB PO SCH ×2 (11:00→22:04)
[2022-03-15] MEDS: Cefepime 2 GM in Sodium Chloride 0.9% 100 ML IVPB SCH ×2 (11:10→23:38)
[2022-03-15 11:21] LABS: Band 26 % (5-11); Eosinophils 4 % (0-10); Lymphocytes 4 % (21-51); MDiff Complete? YES; Neutrophil 66 % (42-75); RBC Morphology Normal
[2022-03-15 12:27] LABS: Vancomycin, Trough 17.4 ug/mL
[2022-03-15] MEDS: Acetaminophen 325 MG TAB PO PRN (16:03)
[2022-03-15] MEDS: Gabapentin 300 MG CAP PO SCH (22:05)
[2022-03-15] MEDS: hydrOXYzine 25 MG TAB PO PRN (22:09)
[2022-03-15] MEDS: Azithromycin 500 MG in Sodium Chloride 0.9% 250 ML 250 ML IVPB SCH (22:10)
[2022-03-15 22:12] LABS: CMV DNA-PCR Test Negative (Negative)
[2022-03-16] MEDS: Vancomycin 1.5 GRAM/300 ML BAG 1.5 GM in Premix Bag 1 BAG IVPB SCH ×2 (01:30→12:09)
[2022-03-16] MEDS: Mometasone 200 MCG/Formoterol 5 MCG 120 PUFF INHALER INH SCH ×2 (08:01→22:44)
[2022-03-16] MEDS: Enoxaparin Sodium 40 MG/0.4 ML SYRINGE SC SCH ×2 (09:35→09:40)
[2022-03-16] MEDS: Sildenafil Citrate 20 MG TAB PO SCH ×2 (09:35→21:47)
[2022-03-16] MEDS: Ivabradine 5 MG TAB PO SCH ×2 (09:35→21:47)
[2022-03-16] MEDS: hydrOXYzine 25 MG TAB PO PRN ×2 (09:35→21:55)
[2022-03-16] MEDS: DULoxetine 60 MG CAP PO SCH (09:35)
[2022-03-16] MEDS: Hydroxychloroquine Sulfate 200 MG TAB PO SCH ×2 (09:35→21:45)
[2022-03-16 10:11] LABS: #Eosinphils 1.5 thou/uL (0.0-0.7); #Lymphocytes 1.4 thou/uL (1.20-3.40); #Monocytes 1.2 thou/uL (0.11-0.59); #Neutrophils 15.3 thou/uL (1.40-6.50); %Eosinophils 7.6 % (0.0-10.0); %Lymphocytes 7.3 % (21.0-51.0); %Monocytes 6.2 % (0.0-10.0); Hemoglobin 10.2 g/dL (12.0-16.0); Mean Corpuscular HGB CONC 32.8 g/dL (32.0-36.0); Mean Corpuscular Hemoglobin 26.9 pg (27.0-31.0); Mean Corpuscular Volume 82.1 fL (78.0-98.0); Mean Platelet Volume 8.2 fL (7.4-10.4); Platelet Count 330 thou/uL (130-400); RBC Distribution Width 13.7 % (11.5-14.5); Red Blood Cell (RBC) Count 3.78 mill/uL (4.20-5.40); White Blood Cell (WBC) Count 19.4 thou/uL (4.8-10.8)
[2022-03-16 10:26] LABS: Anion Gap 9 mmol/L (10-20); BUN (Urea Nitrogen) 5 mg/dL (7.0-18.7); Calc. Creatinine Clearance 154 mL/min (70-130); Calcium 8.2 mg/dL (7.8-10.44); Carbon Dioxide 23 mmol/L (22-29); Chloride 109 mmol/L (98-107); Estimated GFR 109; Glucose 106 mg/dL (70-105); Sodium 138 mmol/L (136-145)
[2022-03-16 10:33] LABS: Potassium 2.9 mmol/L (3.5-5.1)
[2022-03-16] MEDS: Cefepime 2 GM in Sodium Chloride 0.9% 100 ML IVPB SCH (11:27)
[2022-03-16] MEDS ORDERED: Potassium Chloride 20 MEQ TAB PO SCH (12:00)
[2022-03-16] MEDS: Potassium Chloride 20 MEQ TAB PO SCH ×2 (16:47→21:45)
[2022-03-16] MEDS: Azithromycin 500 MG in Sodium Chloride 0.9% 250 ML 250 ML IVPB SCH (21:42)
[2022-03-16] MEDS: Gabapentin 300 MG CAP PO SCH (21:46)
[2022-03-17] MEDS: Cefepime 2 GM in Sodium Chloride 0.9% 100 ML IVPB SCH ×2 (00:12→14:03)
[2022-03-17 00:19] LABS: Vancomycin, Trough 12.6 ug/mL
[2022-03-17] MEDS: Vancomycin 1.5 GRAM/300 ML BAG 1.5 GM in Premix Bag 1 BAG IVPB SCH (00:50)
[2022-03-17] MEDS: Potassium Chloride 20 MEQ TAB PO SCH ×2 (04:33→10:26)
[2022-03-17 04:46] LABS: ALT (SGPT) 27 U/L (8-55); AST (SGOT) 26 U/L (5-34); Albumin 2.6 g/dL (3.5-5.0); Alkaline Phosphatase 265 U/L (40-110); Anion Gap 11 mmol/L (10-20); BUN (Urea Nitrogen) 6 mg/dL (7.0-18.7); Bilirubin, Total 0.5 mg/dL (0.2-1.2); Calc. Creatinine Clearance 159 mL/min (70-130); Calcium 7.9 mg/dL (7.8-10.44); Carbon Dioxide 20 mmol/L (22-29); Chloride 110 mmol/L (98-107); Estimated GFR 110; Globulin 3.2 g/dL (2.4-3.5); Glucose 90 mg/dL (70-105); Potassium 3.3 mmol/L (3.5-5.1); Protein, Total 5.8 g/dL (6.0-8.3); Sodium 138 mmol/L (136-145)
[2022-03-17 05:07] LABS: Band 6 % (5-11); Eosinophils 9 % (0-10); Hemoglobin 10.4 g/dL (12.0-16.0); Lymphocytes 12 % (21-51); MDiff Complete? YES; Mean Corpuscular Hemoglobin 27.9 pg (27.0-31.0); Mean Platelet Volume 8.5 fL (7.4-10.4); Monocytes 3 % (0-10); Myelocyte 2 % (0-0); Neutrophil 68 % (42-75); Platelet Count 328 thou/uL (130-400); RBC Distribution Width 13.9 % (11.5-14.5); Red Blood Cell (RBC) Count 3.71 mill/uL (4.20-5.40); White Blood Cell (WBC) Count 19.5 thou/uL (4.8-10.8)
[2022-03-17] MEDS: Mometasone 200 MCG/Formoterol 5 MCG 120 PUFF INHALER INH SCH (07:18)
[2022-03-17] MEDS ORDERED: VANCOMYCIN 1.25 GM/250 ML BAG 1.25 GM in Premix Bag 1 BAG IVPB SCH (09:00)
[2022-03-17] MEDS: Ivabradine 5 MG TAB PO SCH (10:27)
[2022-03-17] MEDS: Sildenafil Citrate 20 MG TAB PO SCH (10:27)
[2022-03-17] MEDS: DULoxetine 60 MG CAP PO SCH (10:29)
[2022-03-17] MEDS: Enoxaparin Sodium 40 MG/0.4 ML SYRINGE SC SCH (10:33)
[2022-03-17] MEDS: Hydroxychloroquine Sulfate 200 MG TAB PO SCH (11:59)
[2022-03-17 13:35] VITALS: BP 117/59; TEMP 98
== END 2022-03-17 17:00 | disposition home or self-care (01) | DRG 871 ==
LOC: ERS 22:32 → T4-B 03-12 00:27 → 2NO 03-12 10:34
PROVIDERS: ADMIT Internal Medicine; ATTEND Internal Medicine
PROC: 3E03329 Introduction of Other Anti-infective into Peripheral Vein, Percutaneous Approach (ICD-10-PCS; principal; 2022-03-12)
PROC: 02HV33Z Insertion of Infusion Device into Superior Vena Cava, Percutaneous Approach (ICD-10-PCS; 2022-03-15)
PROC: B548ZZA Ultrasonography of Superior Vena Cava, Guidance (ICD-10-PCS; 2022-03-15)
PROC: B5181ZA Fluoroscopy of Superior Vena Cava using Low Osmolar Contrast, Guidance (ICD-10-PCS; 2022-03-15)
PROC: 3E04329 Introduction of Other Anti-infective into Central Vein, Percutaneous Approach (ICD-10-PCS; 2022-03-17)
PROC: 02HV33Z Insertion of Infusion Device into Superior Vena Cava, Percutaneous Approach (ICD-10-PCS; 2022-03-17)
PROC: B548ZZA Ultrasonography of Superior Vena Cava, Guidance (ICD-10-PCS; 2022-03-17)
PROC: B5181ZA Fluoroscopy of Superior Vena Cava using Low Osmolar Contrast, Guidance (ICD-10-PCS; 2022-03-17)
DX: A41.9 Sepsis, unspecified organism (principal); J18.9 Pneumonia, unspecified organism; D84.821 Immunodeficiency due to drugs; K52.1 Toxic gastroenteritis and colitis; M86.141 Other acute osteomyelitis, right hand; I47.1 Supraventricular tachycardia; Z20.822 Contact with and (suspected) exposure to COVID-19; I73.00 Raynaud's syndrome without gangrene; E55.9 Vitamin D deficiency, unspecified; M34.9 Systemic sclerosis, unspecified; M06.9 Rheumatoid arthritis, unspecified; J84.10 Pulmonary fibrosis, unspecified; M79.7 Fibromyalgia; F32.A Depression, unspecified; K21.9 Gastro-esophageal reflux disease without esophagitis; L03.011 Cellulitis of right finger; E87.6 Hypokalemia; T50.995A Adverse effect of other drugs, medicaments and biological substances, initial encounter; I27.20 Pulmonary hypertension, unspecified; Z79.52 Long term (current) use of systemic steroids; Z90.89 Acquired absence of other organs; Z98.890 Other specified postprocedural states; Z79.899 Other long term (current) drug therapy; Z79.51 Long term (current) use of inhaled steroids
CPT/HCPCS: 36415; 36569; 71260; 74177; 80048; 80053; 80202; 83605; 83735; 84484; 85025; 85652; 86140; 87040; 87385; 87449; 87497; 87899; 93005; 93010; 96365; C1751; J0456; J0692; J1644; J1650; J3370; J3475; J3480; J3490; J7030; J7050; J7120; J7517; Q9967; U0003; U0005

== ENCOUNTER 2022-03-20 18:58 | Inpatient (IN) | payer BC ==
[2022-03-20 19:47] LABS: Hemoglobin 12.4 g/dL (12.0-16.0); Mean Corpuscular HGB CONC 32.6 g/dL (32.0-36.0); Mean Corpuscular Hemoglobin 26.8 pg (27.0-31.0); Mean Corpuscular Volume 82.2 fL (78.0-98.0); Mean Platelet Volume 7.7 fL (7.4-10.4); Platelet Count 373 thou/uL (130-400); RBC Distribution Width 14.6 % (11.5-14.5); Red Blood Cell (RBC) Count 4.62 mill/uL (4.20-5.40); White Blood Cell (WBC) Count 44.3 thou/uL (4.8-10.8)
[2022-03-20 20:03] LABS: ALT (SGPT) 9 U/L (8-55); AST (SGOT) 13 U/L (5-34); Albumin 2.7 g/dL (3.5-5.0); Alkaline Phosphatase 137 U/L (40-110); Anion Gap 15 mmol/L (10-20); BUN (Urea Nitrogen) 10 mg/dL (7.0-18.7); Bilirubin, Total 0.6 mg/dL (0.2-1.2); Calc. Creatinine Clearance 0 mL/min (70-130); Calcium 8.2 mg/dL (7.8-10.44); Carbon Dioxide 23 mmol/L (22-29); Chloride 101 mmol/L (98-107); Estimated GFR 89; Globulin 3.7 g/dL (2.4-3.5); Glucose 103 mg/dL (70-105); Potassium 3.7 mmol/L (3.5-5.1); Protein, Total 6.4 g/dL (6.0-8.3); Sodium 135 mmol/L (136-145)
[2022-03-20 20:08] LABS: Band 12 % (5-11); Eosinophils 6 % (0-10); Lymphocytes 2 % (21-51); MDiff Complete? YES; Metamyelocyte 2 % (0-0); Neutrophil 78 % (42-75); Platelet Morphology Comment Appears Adequate; RBC Morphology Normal
[2022-03-20 21:45] LABS: Bacteria/HPF 4+ HPF (None Seen); Bilirubin Negative (Negative); Blood, Urine 3+ (Negative); Clarity Extra Turbid (Clear); Glucose, Urine (Dipstick) 30 mg/dL (Negative); Ketone, Urine Trace mg/dL (Negative); Leukocyte 75 Leu/uL (Negative); Nitrite Negative (Negative); Protein, Urine (Dipstick) 300 mg/dL (Neg-Trace); RBC/HPF Greater than 50 HPF (0-3); Renal Epithelial 0-3 HPF (None Seen); Specific Gravity, Urine 1.031 (1.002-1.036); Urobilinogen Normal mg/dL (Less than 2); WBC/HPF 21-50 HPF (0-3)
[2022-03-20] MEDS ORDERED: Acetaminophen 325 MG TAB PO PRN (21:59)
[2022-03-20] MEDS ORDERED: Ondansetron PF 4 MG/2 ML Vial IVP PRN (21:59)
[2022-03-20] MEDS ORDERED: Meropenem 1 GM in Sodium Chloride 0.9% 100 ML IVPB SCH (22:15)
[2022-03-20 23:57] VITALS: BMI 35.4
[2022-03-21] MEDS ORDERED: Vancomycin 1.5 GRAM/300 ML BAG 1.5 GM in Premix Bag 1 BAG IVPB SCH (01:00)
[2022-03-21 01:05] LABS: SARS-CoV-2 NAA Rapid Test Not Detected (NotDetected)
[2022-03-21] MEDS ORDERED: diphenhydrAMINE 25 MG CAP ONE (03:53)
[2022-03-21 05:26] LABS: Anion Gap 14 mmol/L (10-20); BUN (Urea Nitrogen) 12 mg/dL (7.0-18.7); Calc. Creatinine Clearance 147 mL/min (70-130); Carbon Dioxide 22 mmol/L (22-29); Chloride 102 mmol/L (98-107); Estimated GFR 99; Glucose 86 mg/dL (70-105); Potassium 3.4 mmol/L (3.5-5.1); Sodium 135 mmol/L (136-145)
[2022-03-21 06:00] LABS: Band 6 % (5-11); Eosinophils 8 % (0-10); Hemoglobin 10.6 g/dL (12.0-16.0); Lymphocytes 5 % (21-51); MDiff Complete? YES; Mean Corpuscular HGB CONC 32.3 g/dL (32.0-36.0); Mean Corpuscular Hemoglobin 26.5 pg (27.0-31.0); Mean Corpuscular Volume 82.1 fL (78.0-98.0); Mean Platelet Volume 8.4 fL (7.4-10.4); Metamyelocyte 5 % (0-0); Monocytes 3 % (0-10); Neutrophil 73 % (42-75); Platelet Count 318 thou/uL (130-400); Platelet Morphology Comment Appears Adequate; RBC Distribution Width 14.3 % (11.5-14.5); RBC Morphology Normal; Red Blood Cell (RBC) Count 4.01 mill/uL (4.20-5.40); White Blood Cell (WBC) Count 36.1 thou/uL (4.8-10.8)
[2022-03-21] MEDS ORDERED: Meropenem 1 GM in Sodium Chloride 0.9% 100 ML IVPB SCH (08:00)
[2022-03-21] MEDS: Enoxaparin Sodium 40 MG/0.4 ML SYRINGE SC SCH (08:34)
[2022-03-21] MEDS ORDERED: Hydrochlorothiazide 25 MG TAB PO PRN (09:09)
[2022-03-21] MEDS ORDERED: ACETAMINOPHEN PO PRN (10:29)
[2022-03-21] MEDS ORDERED: Cyclobenzaprine 10 MG TAB PO PRN (10:29)
[2022-03-21] MEDS ORDERED: TRAMADOL HCL PO PRN (10:29)
[2022-03-21] MEDS ORDERED: Furosemide 40 MG/4 ML VIAL SLOW IVP SCH (10:45)
[2022-03-21] MEDS ORDERED: DULoxetine 60 MG CAP PO SCH (11:00)
[2022-03-21] MEDS: diphenhydrAMINE 25 MG CAP PO PRN ×2 (11:20→19:56)
[2022-03-21] MEDS ORDERED: Iopamidol-370 76% 500 ML 1 ML ONE (16:03)
[2022-03-21] MEDS: Mometasone 200 MCG/Formoterol 5 MCG 120 PUFF INHALER INH SCH (18:24)
[2022-03-21] MEDS: Gabapentin 300 MG CAP PO SCH (19:55)
[2022-03-21] MEDS: Hydroxychloroquine Sulfate 200 MG TAB PO SCH (19:56)
[2022-03-21] MEDS: Ivabradine 5 MG TAB PO SCH (19:56)
[2022-03-21] MEDS: Sildenafil Citrate 20 MG TAB PO SCH (19:56)
[2022-03-21] MEDS ORDERED: SILDENAFIL CITRATE 20 MG PO SCH (21:00)
[2022-03-21] MEDS ORDERED: Non-Formulary Item 1 EACH (Budesonide-Formoterol [Symbicort 160-4.5] 160 MG/4.5 MG Aer) INH SCH (21:00)
[2022-03-22 04:56] LABS: Hemoglobin 9.9 g/dL (12.0-16.0); MDiff Complete? YES; Mean Corpuscular Hemoglobin 26.5 pg (27.0-31.0); Mean Corpuscular Volume 82.6 fL (78.0-98.0); Mean Platelet Volume 8.1 fL (7.4-10.4); Platelet Count 273 thou/uL (130-400); Red Blood Cell (RBC) Count 3.73 mill/uL (4.20-5.40); White Blood Cell (WBC) Count 22.2 thou/uL (4.8-10.8)
[2022-03-22 04:57] LABS: Band 20 % (5-11); Eosinophils 1 % (0-10); Hypochromia SLIGHT = 6-15 cells (100X) (0-5/hpf); Lymphocytes 2 % (21-51); Metamyelocyte 1 % (0-0); Monocytes 13 % (0-10); Neutrophil 63 % (42-75); Platelet Morphology Comment Appears Adequate
[2022-03-22 05:03] LABS: Anion Gap 14 mmol/L (10-20); BUN (Urea Nitrogen) 10 mg/dL (7.0-18.7); Calc. Creatinine Clearance 153 mL/min (70-130); Calcium 8.1 mg/dL (7.8-10.44); Carbon Dioxide 22 mmol/L (22-29); Chloride 104 mmol/L (98-107); Estimated GFR 104; Glucose 89 mg/dL (70-105); Potassium 3.1 mmol/L (3.5-5.1); Sodium 137 mmol/L (136-145)
[2022-03-22] MEDS: Furosemide 40 MG/4 ML VIAL SLOW IVP SCH ×2 (05:50→14:52)
[2022-03-22] MEDS ORDERED: Potassium Chloride 20 MEQ TAB PO SCH (06:15)
[2022-03-22] MEDS: Mometasone 200 MCG/Formoterol 5 MCG 120 PUFF INHALER INH SCH ×2 (07:52→18:13)
[2022-03-22] MEDS: Enoxaparin Sodium 40 MG/0.4 ML SYRINGE SC SCH (08:21)
[2022-03-22] MEDS: Potassium Chloride 20 MEQ TAB PO SCH (08:22)
[2022-03-22] MEDS: Cholecalciferol 1,000 UNITS (25 MCG) TAB PO SCH (08:22)
[2022-03-22] MEDS: DULoxetine 60 MG CAP PO SCH (08:23)
[2022-03-22] MEDS: Hydroxychloroquine Sulfate 200 MG TAB PO SCH ×2 (08:23→20:58)
[2022-03-22] MEDS: Sildenafil Citrate 20 MG TAB PO SCH ×2 (08:24→20:58)
[2022-03-22] MEDS: Ivabradine 5 MG TAB PO SCH ×2 (08:24→20:58)
[2022-03-22] MEDS ORDERED: Non-Formulary Item 1 EACH (Esomeprazole Magnesium [Nexium] 20 MG Capsule.Dr) PO SCH (09:00)
[2022-03-22] MEDS ORDERED: Non-Formulary Item 1 EACH (Cholecalciferol (Vitamin D3) [Vitamin D] 1000 UNIT Capsule) PO SCH (09:00)
[2022-03-22] MEDS: Gabapentin 300 MG CAP PO SCH (20:57)
[2022-03-22] MEDS: hydrOXYzine 25 MG TAB PO PRN (21:01)
[2022-03-23 05:50] LABS: Anion Gap 13 mmol/L (10-20); BUN (Urea Nitrogen) 11 mg/dL (7.0-18.7); Calc. Creatinine Clearance 142 mL/min (70-130); Calcium 8.4 mg/dL (7.8-10.44); Carbon Dioxide 25 mmol/L (22-29); Chloride 104 mmol/L (98-107); Estimated GFR 98; Glucose 83 mg/dL (70-105); Potassium 3.3 mmol/L (3.5-5.1); Sodium 139 mmol/L (136-145)
[2022-03-23] MEDS: Furosemide 40 MG/4 ML VIAL SLOW IVP SCH (06:06)
[2022-03-23 06:20] LABS: Band 3 % (5-11); Eosinophils 16 % (0-10); Hemoglobin 10.1 g/dL (12.0-16.0); Hypochromia SLIGHT = 6-15 cells (100X) (0-5/hpf); Lymphocytes 10 % (21-51); MDiff Complete? YES; Mean Corpuscular HGB CONC 32.9 g/dL (32.0-36.0); Mean Corpuscular Hemoglobin 26.9 pg (27.0-31.0); Mean Platelet Volume 8.5 fL (7.4-10.4); Neutrophil 69 % (42-75); Platelet Count 281 thou/uL (130-400); Platelet Morphology Comment Appears Adequate; Polychromasia SLIGHT = 2-3 cells (100X) (0-2/hpf); RBC Distribution Width 14.2 % (11.5-14.5); Reactive Lymphocytes 2 % (0-10); Red Blood Cell (RBC) Count 3.76 mill/uL (4.20-5.40); White Blood Cell (WBC) Count 22.7 thou/uL (4.8-10.8)
[2022-03-23] MEDS ORDERED: Potassium Chloride 20 MEQ TAB PO SCH (06:30)
[2022-03-23] MEDS: Mometasone 200 MCG/Formoterol 5 MCG 120 PUFF INHALER INH SCH ×2 (07:36→20:08)
[2022-03-23] MEDS: Cholecalciferol 1,000 UNITS (25 MCG) TAB PO SCH (10:11)
[2022-03-23] MEDS: Potassium Chloride 20 MEQ TAB PO SCH (10:14)
[2022-03-23] MEDS: Hydroxychloroquine Sulfate 200 MG TAB PO SCH ×2 (10:14→20:30)
[2022-03-23] MEDS: Sildenafil Citrate 20 MG TAB PO SCH ×2 (10:14→20:31)
[2022-03-23] MEDS: DULoxetine 60 MG CAP PO SCH (10:14)
[2022-03-23] MEDS: Enoxaparin Sodium 40 MG/0.4 ML SYRINGE SC SCH (10:18)
[2022-03-23] MEDS: Ivabradine 5 MG TAB PO SCH ×2 (10:18→20:30)
[2022-03-23] MEDS ORDERED: Furosemide 40 MG/4 ML VIAL SLOW IVP SCH (11:45)
[2022-03-23] MEDS: traMADol HCl 50 MG TAB PO PRN ×2 (12:34→20:31)
[2022-03-23] MEDS: Acetaminophen 325 MG TAB PO PRN ×2 (12:34→20:33)
[2022-03-23] MEDS: Apixaban 5 MG TAB PO SCH (20:29)
[2022-03-23] MEDS: Doxycycline 100 MG CAP PO SCH (20:30)
[2022-03-23] MEDS: hydrOXYzine 25 MG TAB PO PRN (20:31)
[2022-03-23] MEDS: Gabapentin 300 MG CAP PO SCH (20:33)
[2022-03-24] MEDS: Mometasone 200 MCG/Formoterol 5 MCG 120 PUFF INHALER INH SCH ×2 (06:54→18:55)
[2022-03-24] MEDS ORDERED: Promethazine 25 MG TAB PO PRN (09:17)
[2022-03-24] MEDS: DULoxetine 60 MG CAP PO SCH (09:23)
[2022-03-24] MEDS: Doxycycline 100 MG CAP PO SCH ×2 (09:23→21:14)
[2022-03-24] MEDS: Hydroxychloroquine Sulfate 200 MG TAB PO SCH ×2 (09:23→21:14)
[2022-03-24] MEDS: Potassium Chloride 20 MEQ TAB PO SCH (09:23)
[2022-03-24] MEDS: Cholecalciferol 1,000 UNITS (25 MCG) TAB PO SCH (09:24)
[2022-03-24] MEDS: Ivabradine 5 MG TAB PO SCH ×2 (09:24→21:13)
[2022-03-24] MEDS: Apixaban 5 MG TAB PO SCH ×2 (09:24→21:14)
[2022-03-24] MEDS: Sildenafil Citrate 20 MG TAB PO SCH ×2 (09:25→21:13)
[2022-03-24] MEDS: Gabapentin 300 MG CAP PO SCH (21:13)
[2022-03-24] MEDS: hydrOXYzine 25 MG TAB PO PRN (21:16)
[2022-03-25 04:55] LABS: Anion Gap 13 mmol/L (10-20); BUN (Urea Nitrogen) 11 mg/dL (7.0-18.7); CRP (Inflammatory) 2.78 mg/dL (= or < 0.5); Calc. Creatinine Clearance 141 mL/min (70-130); Calcium 8.3 mg/dL (7.8-10.44); Carbon Dioxide 24 mmol/L (22-29); Chloride 107 mmol/L (98-107); Estimated GFR 96; Glucose 94 mg/dL (70-105); Potassium 3.8 mmol/L (3.5-5.1); Sodium 140 mmol/L (136-145)
[2022-03-25 05:14] LABS: Band 3 % (5-11); Eosinophils 13 % (0-10); Hemoglobin 9.5 g/dL (12.0-16.0); Lymphocytes 19 % (21-51); MDiff Complete? YES; Mean Corpuscular HGB CONC 32.3 g/dL (32.0-36.0); Mean Corpuscular Hemoglobin 26.1 pg (27.0-31.0); Mean Corpuscular Volume 80.7 fL (78.0-98.0); Mean Platelet Volume 8.1 fL (7.4-10.4); Monocytes 3 % (0-10); Myelocyte 1 % (0-0); Neutrophil 61 % (42-75); Platelet Count 283 thou/uL (130-400); RBC Distribution Width 14.2 % (11.5-14.5); Red Blood Cell (RBC) Count 3.66 mill/uL (4.20-5.40)
[2022-03-25] MEDS: Mometasone 200 MCG/Formoterol 5 MCG 120 PUFF INHALER INH SCH (06:41)
[2022-03-25 08:41] VITALS: BP 131/58; TEMP 98
[2022-03-25] MEDS: Doxycycline 100 MG CAP PO SCH (09:24)
[2022-03-25] MEDS: Apixaban 5 MG TAB PO SCH (09:24)
[2022-03-25] MEDS: Sildenafil Citrate 20 MG TAB PO SCH (09:25)
[2022-03-25] MEDS: DULoxetine 60 MG CAP PO SCH (09:25)
[2022-03-25] MEDS: Potassium Chloride 20 MEQ TAB PO SCH (09:25)
[2022-03-25] MEDS: Hydroxychloroquine Sulfate 200 MG TAB PO SCH (09:25)
[2022-03-25] MEDS: Cholecalciferol 1,000 UNITS (25 MCG) TAB PO SCH (09:25)
[2022-03-25] MEDS: Ivabradine 5 MG TAB PO SCH (09:25)
== END 2022-03-25 11:40 | disposition home or self-care (01) | DRG 196 ==
LOC: ERS 18:58 → 2SW 21:57
PROVIDERS: ADMIT Internal Medicine; ATTEND Internal Medicine
DX: J84.10 Pulmonary fibrosis, unspecified (principal); J96.21 Acute and chronic respiratory failure with hypoxia; M86.8X4 Other osteomyelitis, hand; I31.3 Pericardial effusion (noninflammatory); I82.621 Acute embolism and thrombosis of deep veins of right upper extremity; Z20.822 Contact with and (suspected) exposure to COVID-19; E55.9 Vitamin D deficiency, unspecified; K21.9 Gastro-esophageal reflux disease without esophagitis; M79.7 Fibromyalgia; M34.9 Systemic sclerosis, unspecified; M06.9 Rheumatoid arthritis, unspecified; J45.909 Unspecified asthma, uncomplicated; F32.A Depression, unspecified; E87.70 Fluid overload, unspecified; R59.0 Localized enlarged lymph nodes; L27.0 Generalized skin eruption due to drugs and medicaments taken internally; T36.8X5A Adverse effect of other systemic antibiotics, initial encounter; T36.1X5A Adverse effect of cephalosporins and other beta-lactam antibiotics, initial encounter; Z90.89 Acquired absence of other organs; Z88.1 Allergy status to other antibiotic agents; Z79.899 Other long term (current) drug therapy; Z79.51 Long term (current) use of inhaled steroids; Z99.81 Dependence on supplemental oxygen
CPT/HCPCS: 36415; 71045; 71275; 80048; 80053; 81003; 81015; 83605; 83880; 84484; 85025; 86140; 87040; 87086; 87449; 93005; 93306; 94640; 96374; J1940; J2185; J3370; J3490; J7620; Q9967; U0002

== ENCOUNTER 2022-04-06 08:18 | Outpatient (CLI) | payer BC | END 2022-04-06 08:19 | disposition home or self-care (01) | LOC: BICRAD 08:18 | PROVIDERS: ATTEND Family Medicine | DX: R60.0 Localized edema (principal) ==

== ENCOUNTER 2023-04-24 11:19 | Outpatient (CLI) | payer BC | END 2023-04-24 11:20 | disposition home or self-care (01) | LOC: BICMAMMO 11:19 | PROVIDERS: ATTEND Family Medicine | DX: Z12.31 Encounter for screening mammogram for malignant neoplasm of breast (principal) | CPT/HCPCS: 77063; 77067 ==

== ENCOUNTER 2023-08-30 08:42 | Outpatient (CLI) | payer BC ==
[2023-08-30] MEDS ORDERED: Magnevist 469MG/ML 20 ML VIAL ONE (14:02)
== END 2023-08-30 08:43 | disposition home or self-care (01) ==
LOC: BICMRI 08:42
PROVIDERS: ATTEND Family Medicine
DX: L08.9 Local infection of the skin and subcutaneous tissue, unspecified (principal); M87.842 Other osteonecrosis, left hand
CPT/HCPCS: A9579

== ENCOUNTER 2025-04-09 09:43 | Outpatient (CLI) | payer BC | END 2025-04-09 09:44 | disposition home or self-care (01) | LOC: CT 09:43 | PROVIDERS: ATTEND Internal Medicine | DX: J84.89 Other specified interstitial pulmonary diseases (principal); M35.9 Systemic involvement of connective tissue, unspecified; J84.10 Pulmonary fibrosis, unspecified | CPT/HCPCS: 71250 ==

== ENCOUNTER 2025-04-27 15:30 | Outpatient (CLI) | payer BC | END 2025-04-27 15:31 | disposition home or self-care (01) | LOC: BICMAMMO 15:30 | PROVIDERS: ATTEND Nurse Practitioner Family | DX: Z12.31 Encounter for screening mammogram for malignant neoplasm of breast (principal) | CPT/HCPCS: 77063; 77067 ==

== ENCOUNTER 2025-06-02 07:29 | Emergency (ER) | payer BC ==
[2025-06-02] MEDS ORDERED: Ondansetron PF 4 MG/2 ML Vial ONE (08:13)
[2025-06-02 08:29] LABS: #Basophils Less than 0.03 10x3/uL (0.0-0.2); #Eosinophils 0.44 10x3/uL (0.0-0.7); #Monocytes 0.74 10x3/uL (0.11-0.59); #Neutrophils 7.62 10x3/uL (1.40-6.50); %Basophils 0.1 % (0.0-1.0); %Eosinophils 4.2 % (0.0-10.0); %Lymphocytes 14.7 % (21.0-51.0); %Monocytes 7.1 % (0.0-10.0); %Neutrophils 73.6 % (42.0-75.0); Hematocrit 47.5 % (36.0-47.0); Hemoglobin 14.7 g/dL (12.0-16.0); Mean Corpuscular Hemoglobin 26.0 pg (27.0-31.0); Mean Corpuscular Volume 83.9 fL (78.0-98.0); Platelet Count 355 10x3/uL (130-400); Red Blood Cell (RBC) Count 5.66 mill/uL (4.20-5.40); White Blood Cell (WBC) Count 10.36 10x3/uL (4.8-10.8)
[2025-06-02] MEDS ORDERED: Lidocaine 1% w/Epinephrine 1:100K 20 ML VIAL ONE (08:37)
[2025-06-02 08:44] LABS: INR-International Normal Ratio 0.9; Prothrombin Time 12.3 sec (12.0-14.7)
[2025-06-02 08:45] LABS: PTT 30.7 sec (22.9-36.1)
[2025-06-02 08:47] LABS: ALT (SGPT) 22 U/L (Less than 34); AST (SGOT) 26 U/L (11-34); Albumin 3.4 g/dL (3.1-4.5); Alkaline Phosphatase 141 U/L (40-110); Anion Gap 13 mmol/L (10-20); BUN (Urea Nitrogen) 9 mg/dL (7.0-18.7); Bilirubin, Total 0.4 mg/dL (0.3-1.2); Calc. Creatinine Clearance 0 mL/min (70-130); Calcium 9.4 mg/dL (7.8-10.44); Carbon Dioxide 25 mmol/L (22-29); Chloride 105 mmol/L (98-107); Globulin 4.3 g/dL (2.4-3.5); Glucose 107 mg/dL (70-105); Potassium 3.3 mmol/L (3.5-5.1); Sodium 140 mmol/L (136-145)
[2025-06-02] MEDS ORDERED: Boostrix 0.5 ML (Tdap) VIAL (>/=7 yrs of age) ONE (11:00)
[2025-06-02] MEDS ORDERED: Bacitracin 1 PK ONE (11:00)
[2025-06-02] MEDS ORDERED: Iopamidol-370 76% 500 ML MDV (1 ML CHARGE) ONE (12:20)
== END 2025-06-02 11:12 | disposition home or self-care (01) ==
LOC: ERS 07:29
DX: S81.011A Laceration without foreign body, right knee, initial encounter (principal); I10 Essential (primary) hypertension; Z23 Encounter for immunization; W01.10XA Fall on same level from slipping, tripping and stumbling with subsequent striking against unspecified object, initial encounter; Y93.E9 Activity, other interior property and clothing maintenance; Y92.000 Kitchen of unspecified non-institutional (private) residence as the place of occurrence of the external cause
CPT/HCPCS: 12034; 80053; 85025; 85610; 85730; 86850; 86900; 86901; 90471; 90715; 96374; 96375; J2270; J2405; Q9967